=== PATIENT | female | born 1975 ===

== ENCOUNTER → 2020-03-11 11:28 | Outpatient (CLI) | payer OTHER, SELFPAY ==
--- NOTE | ~2020-03-11 | US_ITS ---
EXAMINATION: US transvaginal DATE: 03/11/2020 11:48 INDICATION: Abnormal uterine bleeding Comparison:No prior studies for comparison. TECHNIQUE: Multiple transabdominal and endovaginal sonographic images of the pelvis performed. FINDINGS: The uterus measures 7.3 x 3.1 x 3.8 cm. The endometrial complex measures 4 mm. The ovaries are not visualized. There is no free fluid in the pelvis. There are no abnormal masses seen on either side. IMPRESSION: 1. Unremarkable pelvic ultrasound. Reviewed, dictated and finalized at location A.
== END ==
PROVIDERS: Visit Provider Obstetrics & Gynecology Gynecologic Oncology
DX: N93.9 Abnormal uterine and vaginal bleeding, unspecified (principal)
CPT/HCPCS: 76830

== ENCOUNTER 2022-02-03 12:19 | Emergency (ER) | payer BC, OTHER, SELFPAY ==
[2022-02-03] VITALS (23 sets, daily range): BP systolic 131–161; BP diastolic 87–101; PULSE 74–108; RESP 12–20; TEMP 36.4; O2SAT 97–100
--- NOTE | ~2022-02-03 | CT_ITS ---
EXAMINATION: CTA chest PE protocol DATE: 02/03/2022 14:08 INDICATION: Chest pain. Epigastric abdominal pain. TECHNIQUE: Computed tomography angiography (CTA) of the chest was performed with 100 mL Omnipaque-350 intravenous contrast timed to evaluate the pulmonary arteries. Coronal maximum intensity projection 3D-reconstructions were created by the technologist. Automated exposure control and iterative reconst ruction technique were employed. The dose-length product was 265.42 mGy-cm. COMPARISON: None. FINDINGS: There is a 6 mm nodule in right lung lower lobe. There is a 5 mm nodule in right lung lower lobe. No pleural effusion. The heart size is normal. No pericardial effusion. There is no pulmonary embolus. There is mild thoracic spondylosis. IMPRESSION: 1. No pulmonary embolus. 2. Pulmonary nodules measuring up to 6 mm, probably benign. Consider noncontrast low-dose chest CT in 6-12 months. Reviewed, dictated and finalized at location A. IMPRESSION: 1. No pulmonary embolus. 2. Pulmonary nodules measuring up to 6 mm, probably benign. Consider noncontras t low-dose chest CT in 6-12 months.
--- NOTE | 2022-02-03 12:50 | ECG_ITS ---
Measurements Intervals [place] Rate: 71 P: 66 WA: 169 QRS: 50 QRSD: 81 T: 34 QT: 379 QTc: 414 Interpretive Statements SINUS RHYTHM LEFT ATRIAL ENLARGEMENT [-0.15mV P WAVE IN V1/V2] NO PREVIOUS ECG AVAILABLE FOR COMPARISON Electronically Signed On 02-04-2022 13:31:27 CDT by Kim Serna M.D.
--- NOTE | 2022-02-03 13:26 | ED.RECABL ---
HPI - Recheck/Abnormal Lab/Rx General Chief Complaint: Recheck/Abnormal Lab/Rx Stated Complaint: possible blood clot - elevated d-dimer Time Seen by Provider: 02/03/22 12:27 History of Present Illness HPI narrative: 47-year-old female with history of Crohn's and hypertension presented emergency room for evaluation of elevated D-dimer. Patient states that she was seen in her primary care physician's office this morning for bilateral calf bumps . States the bump on her right calf was a result of her hitting the car door, and the bump on her left calf as result of a shopping cart hitting her in the back of the leg. Patient denies a known history of blood clots, cancer. Patient is not on anticoagulants. Patient denies use of control. Denies recent travel or extended periods of immobilization. Denies any recent injury or illness. Related Data Allergies Allergy/AdvReac Type Severity Reaction Status Date / Time dextromethorphan Allergy Mild Hives Verified 02/03/22 12:20 doxylamine Allergy Mild Hives Verified 02/03/22 12:20 pseudoephedrine Allergy Mild Hives Verified 02/03/22 12:20 acetaminophen Allergy Unknown Hives / Verified 02/03/22 12:20 Red Face doxycycline Allergy Unknown Nausea Verified 02/03/22 12:20 Review of Systems Review of Systems: CONSTITUTIONAL: Denies fever, chills, or sweats. EYES: Denies visual changes, redness, or discharge. ENT: Denies rhinorrhea, congestion, sore throat, or otalgia. CARDIOVASCULAR: Denies chest pain, palpitations, or edema. RESPIRATORY: Denies cough or dyspnea. GASTROINTESTINAL: Denies abdominal pain, nausea, vomiting, or diarrhea. GENITOURINARY: Denies dysuria or hematuria. SKIN: Denies rash or itching. MUSCULOSKELETAL: Reports bilateral calf pain NEUROLOGIC: Denies headache, numbness, dizziness, or weakness. PSYCHIATRIC: Denies anxiety or depression. Exam Narrative: GENERAL: Well-appearing, well-nourished, no physical limitations, and in no acute distress. HEAD: Normocephalic, atraumatic. EYES: Conjunctivae normal, PERRLA and EOMI. NECK: Supple. No meningeal signs. No adenopathy or masses. No carotid bruits or JVD CHEST: Clear to auscultation. No respiratory distress. No wheezes rales or rhonchi. No tenderness. HEART: Regular rate and rhythm. No murmur heard. Normal peripheral pulses. EXTREMITIES: Normal range of motion. No edema. No clubbing or cyanosis. Negative Homans' sign bilaterally SKIN: Warm, dry, no rash. No noted wounds NEURO: No focal deficits. Alert and oriented x3. MAEW. CN's II-XI intact bilaterally, normal gait PSYCH: Cooperative. Normal mood and affect. Course Vital Signs Vital signs: Vital Signs Temperature 36.4 C 02/03/22 12:23 Pulse Rate 108 H 02/03/22 12:23 Respiratory Rate 16 02/03/22 12:23 Blood Pressure 153/97 H 02/03/22 12:23 Pulse Oximetry 100 02/03/22 12:23 Oxygen Delivery Room Air 02/03/22 12:23 Temperature 36.4 C 02/03/22 12:23 Pulse Rate 83 02/03/22 16:30 Respiratory Rate 17 02/03/22 16:30 Blood Pressure 135/91 H 02/03/22 13:16 Pulse Oximetry 97 02/03/22 12:36 Oxygen Delivery Room Air 02/03/22 12:23 MDM - Recheck/Abnormal Lab/Rx Lab Data Result diagrams: 02/03/22 13:26 02/03/22 13:26 Labs: Lab Results 02/03/22 02/03/22 02/03/22 Range/Units 13:26 13:26 13:26 WBC 7.7 (4.5-10.0) K/mm3 RBC 4.42 (4.2-5.4) M/mm3 Hgb 13.7 (12.0-15.0) g/dL Hct 39.6 (37.0-47.0) % MCV 89.6 (80-100) fl MCH 31.0 (26-34) pg MCHC 34.6 (32-36) g/dl RDW 12.8 (11.5-14.5) % Plt Count 261 (150-375) k/mm3 MPV 10.5 H (7.4-10.4) fl Immature Gran % (Auto) 0.4 (0-0.5) % Neut % (Auto) 71.6 (45.5-73.1) % Lymph % (Auto) 16.9 L (18.3-44.2) % [place] % (Auto) 9.3 H (2.6-8.5) % Eos % (Auto) 1.4 (0-4.4) % Baso % (Auto) 0.4 (0.2-1.2) % Lymph # (Auto) 1.31 (0.9-3.2) K/mm3 [place] # (Auto) 0.7 H (0.1-0.6) K/mm3 Eos # (
[2022-02-03] MEDS: SODIUM CHLORIDE 0.9% IV 1,000 ML 999 ML IV CONT (13:34)
[2022-02-03 13:35] LABS: Basophils Percent Auto 0.4 % (0.2-1.2); Eosinophils Absolute Auto 0.1 K/mm3 (0-0.3); Eosinophils Percent Auto 1.4 % (0-4.4); Hematocrit 39.6 % (37.0-47.0); Hemoglobin 13.7 g/dL (12.0-15.0); Immature Granulocyte Absolute 0.03 K/mm3 (0.00-0.031); Immature Granulocyte Percent A 0.4 % (0-0.5); Lymphocytes Absolute Auto 1.31 K/mm3 (0.9-3.2); Lymphocytes Percent Auto 16.9 % (18.3-44.2); Mean Corpuscular HGB Conc 34.6 g/dl (32-36); Mean Corpuscular Volume 89.6 fl (80-100); Mean Platelet Volume 10.5 fl (7.4-10.4); Monocytes Absolute Auto 0.7 K/mm3 (0.1-0.6); Monocytes Percent Auto 9.3 % (2.6-8.5); Neutrophils Absolute Auto 5.5 K/mm3 (1.3-6.7); Neutrophils Percent Auto 71.6 % (45.5-73.1); Platelet Count Result 261 k/mm3 (150-375); Red Blood Count 4.42 M/mm3 (4.2-5.4); Red Cell Distribution Width 12.8 % (11.5-14.5); White Blood Count 7.7 K/mm3 (4.5-10.0)
[2022-02-03 13:50] LABS: Alanine Aminotransferase 32 U/L (6-35); Albumin Level 4.3 g/dL (3.5-5.1); Alkaline Phosphatase 196 U/L (38-126); Anion Gap 7 mmol/L (8-16); Aspartate Amino Transferase 36 U/L (14-36); Bilirubin,Total 0.2 mg/dL (0.2-1.3); Blood Urea Nitrogen 11 mg/dL (7-17); Calcium 9.3 mg/dL (8.4-10.2); Carbon Dioxide 30 mmol/L (22-30); Chloride 92 mmol/L (98-107); Estimated CRCL calculation 82 ml/min; Estimated Glomerular Filt Rate > 60; Glucose 100 mg/dL (65-110); Potassium 3.6 mmol/L (3.4-5.0); Sodium 129 mmol/L (137-145)
[2022-02-03 14:09] LABS: D Dimer 1.57 ug/mL (<0.48)
== END 2022-02-03 16:56 | disposition home or self-care (01) ==
PROVIDERS: Emergency Provider Nurse Practitioner Family
DX: R79.1 Abnormal coagulation profile (principal); M79.605 Pain in left leg; M79.604 Pain in right leg; G47.00 Insomnia, unspecified; Z86.718 Personal history of other venous thrombosis and embolism
CPT/HCPCS: 36415; 71275; 80053; 81025; 84443; 85025; 85380; 93005; 96360; 99284; J7030; Q9967

== ENCOUNTER 2024-07-28 14:35 | Emergency (ER) | payer BC, OTHER, SELFPAY ==
--- NOTE | ~2024-07-28 | XR_ITS ---
CHEST RADIOGRAPH, PA AND LATERAL CLINICAL HISTORY: cp, sob . COMPARISON: None available TECHNIQUE: PA and lateral views of the chest. FINDINGS The cardiomediastinal silhouette is unremarkable. The lungs are clear. Visualized osseous structures and soft tissues are unremarkable. IMPRESSION: No focal infiltrate or effusion. Reviewed, dictated and finalized at location A. RATOR ASSEMBLER
--- NOTE | ~2024-07-28 | CT_ITS ---
EXAMINATION: CTA chest PE abdomen pel DATE: 07/28/2024 20:00 MEDICAID BILLING SPECIALIST INDICATION: Cough and short of breath. Personal history of Crohn's disease, on immunotherapy TECHNIQUE: Computed tomographic angiography (CTA) of the chest was performed, along with multiple con tiguous axial images of the abdomen and pelvis with 100 mL Omnipaque-350 intravenous contrast. The do se-length product was 932.66 mGy-cm. Maximum intensity projection 3D-reconstructions of the aorta and other arteries were constructed by the technologist on a separate workstation. FINDINGS/OBSERVATIONS: PULMONARY ARTERIES: No filling defect is identified within the main or proximal pulmonary artery. The main pulmonary artery is not enlarged. THORACIC AORTA: No aneurysmal dilatation or dissection is present. The great vessels are intact LUNGS: The lungs are clear. MEDIASTINUM: No morphologically suspicious or pathologically enlarged lymph nodes are identified with in the mediastinum or bilateral axilla. BONES OF THE CHEST: No acute fracture. No significant degenerative disease. No lytic or blastic lesions. HEART: The heart is of normal size, without pericardial effusion. LIVER: The liver enhances homogeneously without enlargement measuring 16 cm in longitudinal dimension. GALLBLADDER AND BILIARY SYSTEM: The gallbladder is only minimally distended, and otherwise unremarkable. PANCREAS: The pancreas enhances homogeneously without ductal dilatation. SPLEEN: The spleen enhances homogeneously and is not enlarged measuring 10 cm in longitudinal dimension. KIDNEYS: The bilateral kidneys enhance symmetrically without hydronephrosis or renal calculi. ADRENAL GLANDS: Unremarkable. GASTROINTESTINAL TRACT: Trace fecal stasis APPENDIX: The appendix is not definitively visualized. However, no pericecal inflammatory change is identified suggest the presence of acute appendicitis. VASCULATURE: Unremarkable. LYMPH NODES: No pathologically enlarged or morphologically suspicious lymph nodes within the retroperitoneum or at the root of the mesentery. PELVIC STRUCTURES: The bladder is only minimally distended, and otherwise unremarkable. The uterus is anteverted and anteflexed BODY WALL AND MUSCULOSKELETAL: Small fat-containing supraumbilical hernia. No significant degenerative disease within the lower thoracic or lumbosacral spine. IMPRESSION: No pulmonary embolus. No aortic dissection. The lungs are clear. No acute pathology detected within the abdomen or pelvis. Reviewed, dictated and finalized at location A. CAID BILLING SPECIALIST
[2024-07-28 14:43] VITALS: BP 161/99; PULSE 108; RESP 19; TEMP 36.2; O2SAT 97
--- OUTSIDE RECORDS SUMMARY | 2024-07-28 14:50 | XMS_ITS | Encounter Summary ---
Author Organization [facility] Address [address] [place] [address] Care Team Providers Care Metal Weather Stripper Name Role Phone Gómez Raymundo MD Primary Care Provider [phone]- [phone] Encounter Details Date Type Department Care Team (Late st Contact Info) Description 06/23/1999 Outpatient Historical Division of Neurology [address] [address] Caden Suarez MD [address] [facility] [address] [place] [address] Social History Tobacco Use Types Packs/Day Years Used Date Smoking Tobacco: Never Assessed Comments Unknown Sex and Gender Information Value Date Recorded Sex Assigned at Not on file 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
--- OUTSIDE RECORDS SUMMARY | 2024-07-28 14:50 | XMS_ITS | Encounter Summary ---
Author Organization [facility] Address [address] [place] [address] Care Team Providers Care Compensation/Benefits Specialist Name Role Phone Gómez Raymundo MD Primary Care Provider [phone]- [phone] Encounter Details Date Type Department Care Team (Late st Contact Info) Description 06/08/2000 Outpatient Historical Division of Neurology [address] [address] Caden Suarez MD [address] 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
--- OUTSIDE RECORDS SUMMARY | 2024-07-28 14:50 | XMS_ITS | Clinical Summary ---
Author Organization [facility] Address [address] [place] [phone] Care Team Providers Care Game Bird Farmer Name Role Phone Terese Garcia MD Primary Care Provider Kt Carmona MD Unavailable [phone] Saenz MD Unavailable [phone] Allergies Active Allergy Reactions Criticality Noted Date Comments Chlorhexidine Gluconate Itching,Redness Low 024 Nyquil Urticaria Medium 01/02/2017 Patient states reaction occurred at at 16. Patient able to take other cough/cold mediations including Dayquil. Medications folic acid (FOLVITE) 400 mcg tabletIndications :Folate Deficiency take 1 tablet by oral route every day 0 0 015 Active calcium carbonate-vitamin D3 (CALTRATE 600 + D) 600 mg (1,500 mg)-800 unit tablet,chewableIn dications:Vitamin D Deficiency take as directed 0 0 015 Active cyanocobalamin (Vitamin B-12) 1,000 mcg tabletIndications :Prevention of Vitamin B12 Deficiency Take 1 tablet (1,000 mcg total) by mouth daily Active inFLIXimab-dyyb (Inflectra) 100 mg injectionIndicati ons:Crohn's Disease Infuse 40 mL (400 mg total) into a venous catheter every 8 (eight) weeks 5 mg/kg dose. Site of Care: [facility] Home Care ([facility] order in Epic under 'Procedures' tab). Active acetaminophen (TYLENOL) 325 mg tabletIndications :infusion reaction prophylaxis Take 2 tablets (650 mg total) by mouth biotech production specialist Please provide 650mg of acetaminophen by mouth 30 minutes prior to Inflectra infusion. Active diphenhydrAMINE 25 mg capsuleIndication s:PREMED Take 1 tablet/capsule (25 mg total) by mouth biotech production specialist Please provide 25mg of diphenhydramine by mouth 30 minutes prior to Inflectra infusion. Active carBAMazepine ER (CARBATROL) 300 mg 12 hr capsule Take 1 capsule (300 mg total) by mouth 2 (two) times a day Active hydroCHLOROthiazi de (HYDRODIURIL) 25 mg tablet Take 1 tablet by mouth once daily 90 tablet Active ondansetron ODT (ZOFRAN-ODT) 8 mg disintegrating tablet Take 1 tablet (8 mg total) by mouth every 8 (eight) hours as needed for nausea or vomiting 20 tablet 3 Active Additional Information Patient not taking.Reported on 07/26/2024 albuterol HFA (ProAir HFA) 90 mcg/actuation inhaler Inhale 2 puffs every 4 (four) hours as needed for shortness of breath or wheezing 1 each 4 2025 Active benzonatate (TESSALON) 100 mg capsuleIndication s:Cough Take 1 capsule (100 mg total) by mouth 3 (three) times a day as needed for cough 42 capsule Active predniSONE (DELTASONE) 20 mg tablet Take 2 tablets (40 mg) by mouth daily for 5 days Take with food 10 tablet 2024 Active amoxicillin-clavu lanate (Augmentin) 875-125 mg per tablet Take 1 tablet by mouth 2 (two) times a day for 7 days 14 tablet 025 2024 Active azithromycin (ZITHROMAX) 250 mg tablet Take 2 tabs (500 mg) by mouth today, than 1 tab (250 mg) daily for 4 days. 6 tablet 025 2024 Active inhalational spacing device (Aerochamber MV) spacer Pt to use with albuterol inhaler 1 each 025 Active sodium chloride 0.9% injectionIndicati ons:line care piv Infuse 10 mL into a venous catheter as needed for line care (piv) 2024 Discontin ued(Thera py completed ) sulfaSALAzine (AZULFIDINE) 500 mg tablet every 12 hours 022 2024 Discontin ued(Thera py completed ) oseltamivir (TAMIFLU) 75 mg capsule Take 1 capsule (75 mg total) by mouth 2 (two) times a day for 5 days 10 capsule 025 2024 Active Problems Problem Noted Date Diagnosed Date High risk medications (not anticoagulants) long- term use 08/01/2023 Assessment & Plan (05/28/2024 10:19 AM HARBOR TUG CAPTAIN): All immunosuppressants increase the risk of infection so we recommend the patient get all available vaccinations, including the pneumococcal vaccine, covid19 and annual influenza vaccine. We screen for TB and HBV prior to initiating an anti-TNF. We monitor CBC and HFP q 3 months for cytopenias and hepatotoxicity. Patients are monitored for infusion reactions at an infusion center. Anti-TNFs may increase the risk for malignancy. The patient should get all age-appropriate cancer screening and in addition should follow with a government relations manager for skin cancer screening. There is a small risk of heart failure so any new HF symptoms would prompt an evaluation and likely discontinuation of therapy. Assessment & Plan (11/28/2023 10:05 AM CDT): All immunosuppressants increase the risk of infection so we recommend the patient get all available vaccinations, including the pneumococcal vaccine, covid19 and annual influenza vaccine. We screen for TB and HBV prior to initiating an anti-TNF. We monitor CBC and HFP q 3 months for cytopenias and hepatotoxicity. Patients are monitored for infusion reactions at an infusion center. Anti-TNFs may increase the risk for malignancy. The patient should get all age-appropriate cancer screening and in addition should follow with a government relations manager for skin cancer screening. There is a small risk of heart failure so any new HF symptoms would prompt an evaluation and likely discontinuation of therapy. Assessment & Plan (08/01/2023 2:49 PM HARBOR TUG CAPTAIN): All immunosuppressants increase the risk of infection so we recommend the patient get all available vaccinations, including the pneumococcal vaccine, covid19 and annual influenza vaccine. We screen for TB and HBV prior to initiating an anti-TNF. We monitor CBC and HFP q 3 months for cytopenias and hepatotoxicity. Patients are monitored for infusion reactions at an infusion center. Anti-TNFs may increase the risk for malignancy. The patient should get all age-appropriate cancer screening and in addition should follow with a government relations manager for skin cancer screening. There is a small risk of heart failure so any new HF symptoms would prompt an evaluation and likely discontinuation of therapy. Healthcare maintenance 08/01/2023 Overview (08/01/2023): Immunizations: Influenza annual Pneumococcus recommend PCV 20 Zoster recommend HBV immune Covid vaccinated Cervical cancer screening: routine follow up with hot stick man Skin cancer screening: consider referral to dermatology to discuss screening strategy Bone health: DEXA: osteopenia in 2020. Ocnt Ca and vit D CRC screening: annual d/t PSC Assessment & Plan (11/28/2023 10:18 AM CDT): PCV today Follows with bone health for osteopenia Assessment & Plan (08/01/2023 2:54 PM HARBOR TUG CAPTAIN): Annual c scope d/t psc Crohn's disease of colon wit h intestinal obstruction ([facility]/HCC) 07/16/2023 Assessment & Plan (07/18/2023 1:02 PM HARBOR TUG CAPTAIN): D/w CRS today - will transfer to CRS service with plan for surgical treatment on Sunday - holding steroids per GI Klebsiella pneumoniae sepsis ([facility]) Assessment & Plan (07/18/2023 1:02 PM HARBOR TUG CAPTAIN): Likely related to gut translocation in the setting of severe crohns inflammation and steroids - day 2 of abx; would treat for 7 days total based upon susceptibility data Fever 07/10/2023 Assessment & Plan (07/11/2023 11:18 AM HARBOR TUG CAPTAIN): -Febrile to 102F this admit -Infectious workup: UA negative for infection. CXR negative for infection, RVP negative -Blood culture x 1/2 MRSE (methicillin resistant staph Epi)-started on empiric Vanc for two doses. Discussed with Antibiotic Stewardship (ID) today, likely contaminant as all other cultures NGTD. Vanc stopped. -Fever most consistent w/ Crohn's flare PSC (primary sclerosing cholangitis) 07/09/2023 Assessment & Plan (05/28/2024 10:20 AM HARBOR TUG CAPTAIN): Needs annual c scope Assessment & Plan (05/19/2024 3:02 PM HARBOR TUG CAPTAIN): Ms. Martinez presents for follow up for primary sclerosing cholangitis. #PSC [No] Clinically sig portal htn (Baveno criteria) Fibroscan LS >20kPa , Plt <150K. I will obtain updated Fibroscan today to evaluate degree of hepatic steatosis and fibrosis. - MRI/MRCP scheduled 06/02/2024 for surveillance. - CCA screening: Paucity of data proving efficacy of screening, especially in asymptomatic patients without dominant stricture Colorectal ca screening: If IBD present, then q1y colonoscopy, last colonoscopy 01/18/2024 Gallbladder ca screening: Monitoring for gb polyps >8 mm. Bone health: DEXA sreening q2-3y. Last DEXA scan done: 09/2023 osteopenia - Vitamin D repletion maintenance 800-1000 international units daily. If osteopenia: Vit D 2000 international units daily and Calcium 1-1.5 g/d. Last Vitamin D level 38 (06/08/2023). - Calcium supplementation Plan: - CA-19, Fat soluble vitamins: monitor vitamins A, D, E yearly. - Fibroscan today - Follow up in 1 year. Assessment & Plan (11/28/2023 10:16 AM CDT): Follows with hepatology. Needs c scope annually due to colon ca risk. Assessment & Plan (08/01/2023 2:50 PM HARBOR TUG CAPTAIN): Follows with liver. Needs annual c scope for dysplasia screening, though has not had colonic involvement. Assessment & Plan (07/10/2023 4:06 PM HARBOR TUG CAPTAIN): Patient has been getting worked up for elevated liver enzymes outpatient. 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 -continue to follow up outpatient with GI with recommendations for annual colonoscopy -follow-up with CRS and GI Hypertension 07/09/2023 Assessment & Plan (07/10/2023 4:07 PM HARBOR TUG CAPTAIN): On hydrochlorothiazide 25 mg daily Holding antihypertensive meds-BP stable without HCTZ for now Crohn's colitis, unspecified complication 2023 Assessment & Plan (07/11/2023 11:17 AM HARBOR TUG CAPTAIN): Patient was diagnosed with Crohn's in 2003. Patient is currently receiving infliximab and sulfasalazine for symptoms. 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 Patient also has extraintestinal manifestation including painful nodules. Patient presented with the abdominal with severe abdominal pain. Mentioned that her previous Crohn's flare ups are also similar. CT abdomen showed active inflammation involving long segment proximally 12 cm of terminal ileum with worsening stricture involving the distal ileum just proximal to this segment with moderate to severe upstream dilation Pt's pain improving. Feels ok, would prefer to go home. Awaiting further GI recs regarding steroids. No signs of obstruction. No N/V. Passing flatus -s/p Solu-Medrol 60 mg IV x 2, now 30mg BID per GI recs -IV fluids -Cont Dilaudid 0.5 mg q.2 hours as needed for pain, APAP prn -Clear liquids this AM -Trend CRP (31->94->81.5) -Per CRS, plan outpatient follow up. Making appt for her. No OR indicated this admit -Follow up GI recs Sinusitis, acute 09/28/2022 Assessment & Plan (09/28/2022 4:43 PM CDT): Due to length of illness we will treat with antibiotic, please complete the whole course of antibiotics-no leftovers. Prescription for antibiotics sent. Reviewed potential benefits and potential side effects of amoxicillin. Aware to complete full course of antibiotic. To continue otc medications. Discussed nasal saline rinses/neti pots. Discussed need to increase fluid intake. May use 1 teaspoon honey every 4 hours as needed for cough, encourage use of hot tea or hot water with honey. May use vicks vapo rub on chest and bottom of feet before bed. Cool mist humidifier in bedroom. Lots of water, rest and handwashing, no sharing cups or utensils. If symptoms worsen including but not limited to shortness of breath, chest pain and/or increasing pain please notify office or present to Emergency Department. Other acne 10/12/2020 Endometriosis 07/22/2018 Elevated serum alkaline phosphatase level 2014 Overview (09/21/2016): Alkaline phosphatase elevated Assessment & Plan (05/21/2023 12:58 PM HARBOR TUG CAPTAIN): Mrs. Martinez presents for evaluation of elevated alkaline phosphatase. She has history of Crohn's (Remicade q8 weeks, Sulfasalazine). She has history of fluctuating alkaline phophatase since 2021, most recent Alk Phos 152, with normal AST/ALT, Tbili. Plt 258K, GGT normal in 2021. MRE 09/2022 reveals normal liver and bile ducts. I will rule out other etiologies of elevated liver tests with lab work today including autoimmune, genetic, viral, and iron overload as well as updated CBC, CMP, Alk Phos Iso enzymes. Differential diagnosis for elevated alk phos is metabolic associated steatotic liver dysfunction (normal GGT), Bone disease vs. bile duct disease. Given the history of Crohns there is concern for disease of the bile ducts, therefore I will order MRI/MRCP for further evaluation of biliary ducts. FIB-4 score 0.92, low risk for fibrosis. Fibroscan to evaluate for hepatic steatosis and if any fibrosis. Further recommendations and management based on workup. Crohn's disease (CMS/HCC) 09/28/2014 Overview (05/28/2024): Year of diagnosis: 2003. Year symptoms began: 2003. Phenotype: Stricturing (B2) without perianal disease. Distribution: ileal (L1) without upper GI disease (L4). Extraintestinal manifestations: PSC, ? Erythema nodosum. Complications: multiple SBO. Prior surgeries: . 07/20/2023 lap ICR with primary anastomosis ([place]) Prior treatments: pentasa, 6MP, steroids. Current treatment: infliximab 5 q 8, SSZ PRN. TPMT: ? 2003 presented with abdominal pain, diarrhea, hematochezia, urgency (20 to 50 bowel movements a day). 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 Infliximab trough was 8.4 on 5 q 8 Referred to surgery several times but she declined. 06/2022 admitted with SBO. Managed with IV steroids then dcd per pt request. Readmitted 3 days later with another obstruction and underwent surgery 07/20/2023 lap ICR with primary anastomosis ([place]) Path Large and small bowel, ileum and cecum, ileocolic resection - Ileum with marked Crohn's disease - Active chronic ileitis, ulceration, transmural inflammation and fibrosis - Negative for dysplasia - CMV immunostain is negative for viral inclusions - Colon with no histopathologic abnormality - Ileal resection margin with mildly active chronic ileitis - GMS and AFB stains will follow in an addendum 01/18/2024 colonoscopy mucosal remission Assessment & Plan (05/28/2024 9:13 PM HARBOR TUG CAPTAIN): Colonoscopy showed mucosal remission on infliximab. Continue indefinitely. Repeat c scope annually due to risk of colon cancer with PSC. RTC 6 mos. Needs infliximab reauthorization before next infusion. Assessment & Plan (11/28/2023 10:17 AM CDT): Stricturing ileal crohn's now in surgical remission. Continue infliximab indefinitely. Schedule c scope to look for recurrence and for screening. RTC 6 mos. Assessment & Plan (08/01/2023 2:49 PM HARBOR TUG CAPTAIN): Severe stricturing ileal Crohn's with multiple admissions for obstruction now in surgical remission. She already had a tight stricture causing obstruction before starting infliximab, so I don't think this was fibrotic and infliximab was never going to prevent surgery. I think infliximab will keep her crohn's from comign back. -cont infliximab -Repeat c scope in 6-12 mos postop. Needs annual scope d/t PSC Assessment & Plan (05/21/2023 1:40 PM HARBOR TUG CAPTAIN): Patient follows with Dr. Merchant (dx 2003). Her current regimen includes Infliximab infusion every 8 weeks, Sulfasalazine 1000 mg daily. Last colonoscopy was in 2020 which revealed tight TI stricture, not able to be traversed. She is scheduled to see [employer] provider this month with transition of care to Dr. Messina. 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 Assessment & Plan (07/10/2023 4:06 PM HARBOR TUG CAPTAIN): Was diagnosed 22 years ago and started with seizures Is following up with Neurosurgery at [facility] Continue carbamazepine (liquid substituted for pills), pt tolerating well. Encounters Date Type Department Care Team Description 07/28/2024 1:35 PM HARBOR TUG CAPTAIN - 07/28/2024 2:40 PM HARBOR TUG CAPTAIN Emergency [facility] Emergency Department [address] [place] [address] Discharge Disposition: Left without being seen 07/28/2024 Nurse Triage [facility] Primary Care [address] [place] [address] Terese Garcia MD 07/26/2024 11:00 AM HARBOR TUG CAPTAIN Office Visit [facility] Medical [facility] at [address] [phone] Lj Brcue NP Acute lower respiratory infection (Primary Dx); Acute cough 07/18/2024 1:30 PM HARBOR TUG CAPTAIN Office Visit [facility] Primary Care [address] [place] [phone] Lillie Mata NP Acute cough (Primary Dx); Influenza A; Class 1 obesity due to excess calories with serious comorbidity and body mass index (BMI) of 31.0 to 31.9 in adult; Primary hypertension; Crohn's disease of small intestine without complication (CMS/HCC) (HCC); Nausea 07/15/2024 9:00 AM HARBOR TUG CAPTAIN Home Care Visit [address] [address] [address] [place] [address] Rubi Chaudhry RN SN INFUSION TREATMENT ROOM 06/17/2024 11:50 AM HARBOR TUG CAPTAIN - 06/17/2024 11:59 PM HARBOR TUG CAPTAIN Hospital Encounter [facility] [address] [place] [address] Lung nodule Discharge Disposition: Discharge to home or self care 06/03/[address] [facility] Gastroenterology [address] [place] [address] 12th [place] [address] [place] [address] Lillie Padilla LPN 06/02/2024 1:15 PM HARBOR TUG CAPTAIN - 06/02/2024 11:59 PM HARBOR TUG CAPTAIN Hospital Encounter [facility] [address] [place] [address] Elevated serum alkaline phosphatase level; PSC (primary sclerosing cholangitis) Discharge Disposition: Discharge to home or self care 06/02/2024 Orders Only [facility] [address] [place] [address] Anita Kelley NP PSC (primary sclerosing cholangitis) (Primary Dx) 05/28/2024 10:00 AM HARBOR TUG CAPTAIN Office Visit [facility] Gastroenterology [address] [place] [address] Medical Office Building [address] [place] [phone] West Saenz MD High risk medications (not anticoagulants) long-term use (Primary Dx); PSC (primary sclerosing cholangitis); Crohn's disease of colon with intestinal obstruction (CMS/HCC) (HCC); Crohn's disease of small intestine with intestinal obstruction (CMS/HCC) (HCC) 05/22/[address] [facility] Gastroenterology [facility]th [place] [address] [place] [address] Lillie Padilla LPN 05/22/2024 Orders Only [address] [address] Anita Kelley NP PSC (primary sclerosing cholangitis) (Primary Dx) 05/19/2024 3:15 PM HARBOR TUG CAPTAIN Lab [address] [id number] PSC (primary sclerosing cholangitis) 05/19/2024 3:00 PM HARBOR TUG CAPTAIN Procedure visit [facility] Gastroenterology [address] [place] [address] Medical Office Building [address], [address] [place] [address] PSC (primary sclerosing cholangitis) 05/19/2024 2:40 PM HARBOR TUG CAPTAIN Office Visit [facility] Gastroenterology [address] [place] [address] Medical Office Building [address], [address] [place] [phone] Anita Kelley NP PSC (primary sclerosing cholangitis) (Primary Dx) 05/16/2024 9:15 AM HARBOR TUG CAPTAIN - 05/16/2024 11:59 PM HARBOR TUG CAPTAIN Hospital Encounter [facility] [address] [place] [address] Discharge Disposition: Discharge to home or self care 05/16/2024 9:00 AM HARBOR TUG CAPTAIN Home Care Visit [facility] [address] [address] [address] [place] [address] Nowacki, Jett J., RN SN INFUSION TREATMENT ROOM 05/14/2024 2:30 PM HARBOR TUG CAPTAIN Office Visit [facility] Convenient Care at [address] [phone] Lj Bruce NP Common cold (Primary Dx) 04/30/[address] [facility] Gastroenterology [address] [place] [address] [place] [address] Camilla Ghotra CMA from Last 3 Months Immunizations Name Administration Dates Next Due Influenza, Quadrivalent, Spl it, Intramuscular 03/18/2015 Influenza, Quadrivalent, Spl it, Preservative Free, Intramuscular 05/01/2022,04/15/2019 Influenza, Trivalent, IM (MDV) 03/18/2018,2007 Influenza, Unspecified 03/06/2024,2022,03/29/2021,03/22 Pfizer SARS-CoV-2 Monovalent Vaccination (12+ Yrs) PURPLE 06/25/2021,10/07/2020,09/16/2020 Pfizer SARS-CoV-2 Monovalent Vaccination (5-11 Yrs) 06/25/2021,10/07/2020,09/16/2020 Pneumococcal Conjugate Pcv20 11/28/2023 Tdap 09/07/2022,07/19/2015 Surgical History Surgery Date Site/Laterality Comments OTHER SURGICAL HISTORY Brain Tumor - lt parietal: no growth or recurrent APPENDECTOMY 1993 Appendectomy OTHER SURGICAL HISTORY D&C ROBOTIC ASSISTED GYNECOLOGIC PROCEDURE WISDOM TOOTH EXTRACTION x 2 COLONOSCOPY BOWEL RESECTION 06/18/2023 - 07/18/2023 Right Medical History Medical History Date Comments 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 Hx Other Medical Crohns disease Hx Other Medical 1998 Brain Tumor - l t parietal Hx Other Medical Seizure disorde r 2nd to brain tumor Hx Other Medical - Neurologis t Hx Other Medical 03 - GI Hypertension Crohn's disease (CMS/HCC) (HCC) PSC (primary sclerosing cholangitis) Seizures (HCC) Family History Medical History Relation Name Comments Alcohol abuse Father Alcoholism; Ca use of : Alcoholism Heart attack Maternal Grandfather Myocard ial infarction; Hyperlipidemia Mother Hyperlipidemi a; Rheum arthritis Mother Rheumatoid a rthritis; Diabetes Mother's Brother Diabetes me llitus; Breast cancer Mother's Sister Other Sister 2 Murdered; Cause of : Murdered Schizophrenia Sister 3 Schizophrenia; Anesthesia problems Neg Hx Colon cancer Neg Hx Relation Name Status Comments Father (Age 60) Maternal Grandfather Mother Mother's Brother Mother's Sister Sister 1 (Age 32) Sister 2 Sister 3 Social History Tobacco Use Types Packs/Day Years Used Date Smoking Tobacco: Never Passive Smoke Exposure: Never Smokeless Tobacco: Never Tobacco Cessation:Counseling Given: Not Answered Alcohol Use Standard Drinks/Week Comments Yes 0 (1 standard drink = 0.6 oz pur e alcohol) OASIS [id number]: Social Isolation Answer Da te Recorded Frequency of experiencing loneliness or isolatio n Never 01/31/2024 [facility] Utilities Answer Date Recorded In the past 12 months has th e electric, gas, oil, or water company threatened to shut off services in your home? No 07/17/2023 AUDIT-C Answer Date Recorded Q1: How often do you have a drink containing alcohol? Never 05/19/2024 Q2: How many drinks containi ng alcohol do you have on a typical day when you are drinking? Patient does not drink Q3: How often do you have si x or more drinks on one occasion? Never 05/19/2024 Overall Financial Resource Strain (CARDIA) Answe r Date Recorded How hard is it for you to pa y for the very basics like food, housing, medical care, and heating? Not very hard 07/17/2023 PHQ-2 Answer Date Recorded PHQ-2 Total Score (If total score is 3 or more points, staff should administer the PHQ-9) 0 07/18/2024 Hunger Vital Sign Answer Date Recorded Within the past 12 months, y ou worried that your food would run out before you got the money to buy more. Never true 07/17/19 24 Within the past 12 months, t he food you bought just didn't last and you didn't have money to get more. Never true 07/17/2023 PRAPARE - Transportation Answer Date Re corded In the past 12 months, has l ack of transportation kept you from medical appointments or from getting medications? No 06/20 In the past 12 months, has l ack of transportation kept you from meetings, work, or from getting things needed for daily living? No 07/17/2023 Housing Stability Vital Sign Answer Adolfo e Recorded In the last 12 months, was t here a time when you were not able to pay the mortgage or rent on time? No 07/17/2023 In the last 12 months, how many places have you lived? 1 07/17/2023 In the last 12 months, was t here a time when you did not have a steady place to sleep or slept in a alf (including now)? No 07/17/2023 Personal Safety Answer Date Recorded Have you ever been in or are you currently in a harmful physical or emotional relationship or is someone making you feel afraid or unsafe? Denies 01/18/2024 Comments No Sex and Gender Information Value Date Recorded Sex Assigned at Not on file Legal Sex Female 4:53 PM HARBOR TUG CAPTAIN Gender Identity Female 12/08/2020 2:25 PM CDT Sexual Orientation Straight 12/08/2020 2: 25 PM CDT Obstetrics History Para Term AB IAB SAB Ectopic Multiple Livin g Live Births 21 Date Outcome GA Total Labor Labor/2nd/3rd Weight Sex Type Anes PTL Lacey A1 A5 Name Clin Last Filed Vital Signs Vital Sign Reading Time Taken Comments Blood Pressure 150/88 07/26/2024 11:03 AM HARBOR TUG CAPTAIN Pulse 104 07/26/2024 11:15 AM HARBOR TUG CAPTAIN Temperature 36.6 C (97.8 F) 07/26/2024 11:03 AM HARBOR TUG CAPTAIN Respiratory Rate 20 07/26/2024 11:03 AM HARBOR TUG CAPTAIN Oxygen Saturation 95% 07/26/2024 11:15 AM HARBOR TUG CAPTAIN Inhaled Oxygen Concentration - - Weight 84.8 kg (187 lb) 07/26/2024 11:03 AM HARBOR TUG CAPTAIN Height 165.1 cm (5' 5 ) 07/18/2024 1:23 PM HARBOR TUG CAPTAIN Body Mass Index 31.12 07/18/2024 1:23 PM HARBOR TUG CAPTAIN Plan of Treatment Health Maintenance Due Date Last Done Comments Zoster Vaccine (1 of 2) 02/02/1996 Covid-19 Vaccine (3 - Pfizer risk series) 07/23/2021 06/25/2021, 06/25/2021, 10/07/2020, Additional history exists Breast Cancer Screening-Mammogram 01/08/2025 01/09/2024, 01/01/2023, 12/26/2021, Additional history exists Regular Well Visit/Exam 18-64 02/20/2025, 11/20/2022, 10/20/2021, Additional history exists Depression Screening 07/18/2025 07/18/2024, 02/21/2024, 08/02/2023, Additional history exists Colon Cancer Screening-Colonoscopy 01/17/20272023, 12/02/2020 Cervical Cancer Screening 12/07/2027 12/06/2022, 12/2017 DTaP/Tdap/Td Vaccine (3 - Td or Tdap) 09/07/2032 09/07/2022, 07/19/2015 Hepatitis C Screening Completed 05/21/2023 Hepatitis B Screening Completed 10/05/2023 Pneumococcal vaccine <65 Completed 11/28/2023 Influenza Vaccine Completed 03/06/2024, , 05/01/2022, Additional history exists Procedures Procedure Name Priority Date/Time Associated Diagnosis Comments POC INFLUENZA A/B, COVID-19 ANTIGEN Routine 07/18/2024 1:29 PM HARBOR TUG CAPTAIN Acute cough CT CHEST WO CONTRAST Schedule Routine, Read Routine (OP Routine) 06/17/2024 12:00 PM HARBOR TUG CAPTAIN Lung nodule MRI ABDOMEN MRCP W WO CONTRAST Schedule Routine, Read Routine (OP Routine) 06/02/2024 3:08 PM HARBOR TUG CAPTAIN Elevated serum alkaline phosphatase level PSC (primary sclerosing cholangitis) EGFR Routine 05/19/2024 3:33 PM HARBOR TUG CAPTAIN PSC (primary sclerosing cholangitis) DIFFERENTIAL AUTO Routine 05/19/2024 3:3 3 PM HARBOR TUG CAPTAIN PSC (primary sclerosing cholangitis) IGG Routine 05/19/2024 3:33 PM HARBOR TUG CAPTAIN PSC (primary sclerosing cholangitis) GAMMA GT Routine 05/19/2024 3:33 PM HARBOR TUG CAPTAIN PSC (primary sclerosing cholangitis) COMPREHENSIVE METABOLIC PANEL Routine 05/19/2024 3:33 PM HARBOR TUG CAPTAIN PSC (primary sclerosing cholangitis) CBC WITH AUTO DIFFERENTIAL Routine 05/19/2024 3:33 PM HARBOR TUG CAPTAIN PSC (primary sclerosing cholangitis) CANCER ANTIGEN 19-9 Routine 05/19/2024 3 :33 PM HARBOR TUG CAPTAIN PSC (primary sclerosing cholangitis) [id number], TUMOR MARKER Routine 05/19/2024 3:33 PM HARBOR TUG CAPTAIN PSC (primary sclerosing cholangitis) VITAMIN D 25 HYDROXY Routine 05/19/2024 3:33 PM HARBOR TUG CAPTAIN PSC (primary sclerosing cholangitis) VITAMIN A Routine 05/19/2024 3:33 PM HARBOR TUG CAPTAIN PSC (primary sclerosing cholangitis) VITAMIN E Routine 05/19/2024 3:33 PM HARBOR TUG CAPTAIN PSC (primary sclerosing cholangitis) LIVER ELASTOGRAPHY W/O IMAGING W/I&R Routine 05/19/2024 3:29 PM HARBOR TUG CAPTAIN PSC (primary sclerosing cholangitis) EGFR Routine 05/16/2024 9:15 AM HARBOR TUG CAPTAIN DIFFERENTIAL AUTO Routine 05/16/2024 9:1 5 AM HARBOR TUG CAPTAIN CRP (ACUTE PHASE) Routine 05/16/2024 9:1 5 AM HARBOR TUG CAPTAIN CBC WITH AUTO DIFFERENTIAL Routine 05/16/2024 9:15 AM HARBOR TUG CAPTAIN GLUCOSE, RANDOM (OUTREACH) Routine 05/16/2024 9:15 AM HARBOR TUG CAPTAIN COMPREHENSIVE METABOLIC PANEL WITHOUT GLUCOSE (OUTREACH) Routine 05/16/2024 9:15 AM HARBOR TUG CAPTAIN POC INFLUENZA A/B, COVID-19 ANTIGEN Routine 05/14/2024 3:04 PM HARBOR TUG CAPTAIN Common cold POCT RAPID STREP Routine 05/14/2024 2:53 PM HARBOR TUG CAPTAIN Common cold COLONOSCOPY 01/18/2024 7:48 AM CDT DIAGNOSTIC MAMMOGRAM BILATERAL W CHRISTIAN Schedule Routine, Read Routine (OP Routine) 01/09/2024 2:53 PM CDT History of abnormal mammogram Mass of left breast, unspecified quadrant HEPATITIS C ANTIBODY Routine 05/21/2023 10:28 AM HARBOR TUG CAPTAIN Elevated serum alkaline phosphatase level HM PAP SMEAR WITH HPV Routine 12/06/2022 from Last 3 Months or Most Recently Relevant to Health Maintenance Results * (ABNORMAL) POC Influenza A/B, COVID-19 antigen (07/18/2024 1:29 PM HARBOR TUG CAPTAIN) Influenza A Ag, POC Positive(A) Negative Influenza B Ag, POC Negative Negative COVID-19 Ag POC Presumptive Negative Presumptive Negative, Invalid Nasal 07/18/2024 1:29 PM HARBOR TUG CAPTAIN Lillie Mata NP POINT OF CARE TEST ORDERABLES Final Result * CT Chest WO Contrast (06/17/2024 12:00 PM HARBOR TUG CAPTAIN) Anatomical Region Laterality Modality Body N/A Computed Tomogra phy 06/22/2024 7:35 PM HARBOR TUG CAPTAIN Narrative 06/22/2024 7:39 PM HARBOR TUG CAPTAIN EXAM DESCRIPTION: CT CHEST WO CONTRAST REASON FOR STUDY: Lung nodule, > 8mm, lung nodule follow up Lung nodule, > 8mm, lung nodule follow up, Lung nodule (Due for follow-up testing) last seen here 1 year ago TECHNIQUE: CT scan of the chest performed without intravenous contrast using helical scanning technique. Reconstructed coronal and sagittal MPR images reviewed. All images stored on PACS. Automated exposure control was used as a dose optimization technique for this examination. COMPARISON: CT chest 06/14/2023 FINDINGS: The sensitivity for detection of solid visceral lesions is diminished without the use of intravenous contrast. LUNGS: Patent central airways. 6 mm perifissural nodule in the right lower lobe (3/46) and 5 mm nodule in the right lung base are stable (3/71). No new or enlarging pulmonary nodule. No focal consolidation PLEURA: No effusion. No pneumothorax. MEDIASTINUM/PRERNA: No identified masses or abnormal nodes. HEART: Heart size is normal with no pericardial effusion. CORONARY ARTERY CALCIFICATION: None VASCULATURE: No thoracic aortic aneurysm. AXILLA: No adenopathy. CHEST WALL: No masses. No subcutaneous air. HARDWARE/LINES/TUBES: None. UPPER ABDOMEN: No significant abnormality. MUSCULOSKELETAL: No significant abnormality. OTHER: No other significant abnormality. IMPRESSION: Stable right pulmonary nodules measuring up to 6 mm. No new or enlarging pulmonary nodule. Continued attention to follow-up. THIS IS AN ELECTRONICALLY VERIFIED FINAL REPORT 06/22/2024 7:39 PM - Electronically signed by Donna Poe M.D. FT: FT Report ID: [id number] Reading Location: [place] [address] Procedure Note Donna Camacho MD - 06/22/2024 EXAM DESCRIPTION: CT CHEST WO CONTRAST REASON FOR STUDY: Lung nodule, > 8mm, lung nodule follow up Lung nodule, > 8mm, lung nodule follow up, Lung nodule (Due for follow-up testing) last seen here 1 year ago TECHNIQUE: CT scan of the chest performed without intravenous contrastusing helical scanning technique. Reconstructed coronal and sagittal MPR images reviewed. All images stored on PACS. Automated exposure control was usedas a dose optimization technique for this examination. COMPARISON: CT chest 06/14/2023 FINDINGS: The sensitivity for detection of solid visceral lesions is diminished without the use of intravenous contrast. LUNGS: Patent central airways. 6 mm perifissural nodule in the rightlower lobe (3/46) and 5 mm nodule in the right lung base are stable (3/71). Nonew or enlarging pulmonary nodule. No focal consolidation PLEURA: No effusion. No pneumothorax. MEDIASTINUM/PRERNA: No identified masses or abnormal nodes. HEART: Heart size is normal with no pericardial effusion. CORONARY ARTERY CALCIFICATION: None VASCULATURE: No thoracic aortic aneurysm. AXILLA: No adenopathy. CHEST WALL: No masses. No subcutaneous air. HARDWARE/LINES/TUBES: None. UPPER ABDOMEN: No significant abnormality. MUSCULOSKELETAL: No significant abnormality. OTHER: No other significant abnormality. IMPRESSION: Stable right pulmonary nodules measuring up to 6 mm. No new or enlarging pulmonary nodule. Continued attention to follow-up. THIS IS AN ELECTRONICALLY VERIFIED FINAL REPORT 06/22/2024 7:39 PM - Electronically signed by Donna Poe M.D. FT: FT Report ID: [id number] Reading Location: [id number] us Lillie Mata NP IMG CT PROCEDURES Final Resul t * MRI Abdomen MRCP W WO Contrast (06/02/2024 3:08 PM HARBOR TUG CAPTAIN) Anatomical Region Laterality Modality Body N/A Magnetic Resonan ce 06/02/2024 3:45 PM HARBOR TUG CAPTAIN Impressions 06/02/2024 4:27 PM HARBOR TUG CAPTAIN Unchanged mild multifocal intrahepatic stricturing and dilatation compatible with primary sclerosing cholangitis. Dictated by: Arya Lorenzo MD The radiology attending physician has personally reviewed this study, and had reviewed and/or edited this written report and agrees with it. Electronically signed by: Johnathan Mcadams M.D. Narrative 06/02/2024 4:27 PM HARBOR TUG CAPTAIN EXAMINATION: 1. MAGNETIC RESONANCE IMAGING OF THE ABDOMEN WITH AND WITHOUT CONTRAST 2. THREE DIMENSIONAL RECONSTRUCTION OF THE BILIARY TREE AND PANCREATIC DUCT HISTORY: Crohn's, PSC, elevated alkaline phosphatase TECHNIQUE: Magnetic resonance imaging of the abdomen was performed prior to and following the uneventful administration of intravenous Gadolinium contrast. The raw data was processed on the scanner by the technologist for 3 dimensional reconstructions of the intrahepatic ducts, extrahepatics ducts, and pancreatic duct. Protocol: Liver MRCP Contrast: gadoterate 16 mL COMPARISON: CT 07/16/2023, MRI 06/03/2023 FINDINGS: Liver: No fat or iron deposition. No surface nodularity. - Bile ducts: There is mild multifocal stricturing involving the intrahepatic ducts probably the left hemiliver which is not significantly changed compared to prior exam. No new dominant stricture is noted. - Focal liver lesions: None - Vasculature: Portal splenic veins are patent. Gallbladder: Normal Pancreas: Normal Spleen: Normal Adrenals: Normal Kidneys: Scattered tiny cysts. No hydronephrosis. Other Findings: Small fat-containing ventral abdominal hernia. No abdominal lymphadenopathy. No suspicious osseous lesions. Procedure Note Johnathan Mcadams MD - 06/02/2024 EXAMINATION: 1. MAGNETIC RESONANCE IMAGING OF THE ABDOMEN WITH AND WITHOUT CONTRAST 2. THREE DIMENSIONAL RECONSTRUCTION OF THE BILIARY TREE AND PANCREATIC DUCT HISTORY: Crohn's, PSC, elevated alkaline phosphatase TECHNIQUE: Magnetic resonance imaging of the abdomen was performed prior to and following the uneventful administration of intravenous Gadolinium contrast. The raw data was processed on the scanner by the technologist for 3 dimensional reconstructions of the intrahepatic ducts, extrahepatics ducts, and pancreatic duct. Protocol: Liver MRCP Contrast: gadoterate 16 mL COMPARISON: CT 07/16/2023, MRI 06/03/2023 FINDINGS: Liver: No fat or iron deposition. No surface nodularity. - Bile ducts: There is mild multifocal stricturing involving the intrahepatic ducts probably the left hemiliver which is not significantly changed compared to prior exam. No new dominant stricture is noted. - Focal liver lesions: None - Vasculature: Portal splenic veins are patent. Gallbladder: Normal Pancreas: Normal Spleen: Normal Adrenals: Normal Kidneys: Scattered tiny cysts. No hydronephrosis. Other Findings: Small fat-containing ventral abdominal hernia. No abdominal lymphadenopathy. No suspicious osseous lesions. IMPRESSION: Unchanged mild multifocal intrahepatic stricturing and dilatation compatible with primary sclerosing cholangitis. Dictated by: Arya Lorenzo MD The radiology attending physician has personally reviewed this study, and had reviewed and/or edited this written report and agrees with it. Electronically signed by: Johnathan Mcadams M.D. Anita Kelley NP IM MRI PROCEDURES Final R esult * eGFR (05/19/2024 3:33 PM HARBOR TUG CAPTAIN) eGFR >90 >=60 mL/min/1. 73 m2 Comment: Interpretive Data Reference Interval Normal >/= 90 mL/min/1.73m2 Mildly decreased* 60 - 89 mL/min/1.73m2 Mildly to moderately decreased 45 - 59 mL/min/1.73m2 Moderately to severely decreased 30 - 44 mL/min/1.73m2 Severely decreased 15 - 29 mL/min/1.73m2 Kidney Failure < 15 mL/min/1.73m2 *Relative to young adult level Estimated glomerular filtration rate is determined by the 2020 CKD-EPI equation recommended by the National Kidney Foundation (A Unifying Approach to GFR Estimation: Recommendations of the NKF-ASK Task Force on Reassessing the Inclusion of Race in Diagnosing Kidney Disease, JASN 2020). The CKD-EPI equation should not be used for patients with unstable renal function and has not been validated in children and those over 70. Current interpretive data was last reviewed 2021. Blood 05/19/2024 3:33 PM HARBOR TUG CAPTAIN 05/19/2024 3:59 PM HARBOR TUG CAPTAIN Anita Kelley NP LAB BLOOD ORDERABLES Final Result [facility] [id number] [facility]. [place] [address] * Differential, auto (05/19/2024 3:33 PM HARBOR TUG CAPTAIN) Neutrophil abs 3.3 1.5 - 6.5 K/cumm Imm gran abs 0.0 0.0 - 0.1 K/cumm [facility] Lymphocyte abs 2.7 0.8 - 3.3 K/cumm [facility] Monocyte abs 0.5 0.2 - 0.8 K/cumm [facility] Eosinophil abs 0.2 0.0 - 0.5 K/cumm [facility] Basophil abs 0.0 0.0 - 0.1 K/cumm [facility] Neutrophil pct 49.4 % [facility] Comment: Interpretive Data Percent cell count reference ranges are not reported, since discordance with absolute values may lead to misinterpretation of CBC data. Current Interpretive Data was last revised on 2017. Imm gran pct 0.1 % [facility] Comment: Interpretive Data Percent cell count reference ranges are not reported, since discordance with absolute values may lead to misinterpretation of CBC data. Current Interpretive Data was last revised on 2017. Lymphocyte pct 40.0 % [facility] Comment: Interpretive Data Percent cell count reference ranges are not reported, since discordance with absolute values may lead to misinterpretation of CBC data. Current Interpretive Data was last revised on 2017. Monocyte pct 6.6 % [facility] Comment: Interpretive Data Percent cell count reference ranges are not reported, since discordance with absolute values may lead to misinterpretation of CBC data. Current Interpretive Data was last revised on 2017. Eosinophil pct 3.5 % [facility] Comment: Interpretive Data Percent cell count reference ranges are not reported, since discordance with absolute values may lead to misinterpretation of CBC data. Current Interpretive Data was last revised on 2017. Basophil pct 0.4 % [facility] Comment: Interpretive Data Percent cell count reference ranges are not reported, since discordance with absolute values may lead to misinterpretation of CBC data. Current Interpretive Data was last revised on 2017. Blood 05/19/2024 3:33 PM HARBOR TUG CAPTAIN 05/19/2024 3:59 PM HARBOR TUG CAPTAIN us Anita Kelley NP LAB BLOOD ORDERABLES Final Result [facility] [address] [facility]. [place] [address] * CBC with auto differential (05/19/2024 3:33 PM HARBOR TUG CAPTAIN) Pathologist [facility] WBC 6.8 3.8 - 9.9 K/cumm Hgb 13.3 11.9 - 15.5 g/dL [facility] Hct 39.7 35.6 - 45.5 % [facility] Plt 230 150 - 400 K/cumm [facility] MPV 11.4 9.1 - 12.3 fL [facility] RBC 4.41 3.90 - 5.20 M/cumm [facility] MCV 90.0 81.3 - 96.4 fL [facility] MCH 30.2 27.1 - 33.3 pg [facility] MCHC 33.5 32.3 - 35.7 g/dL [facility] RDW CV 12.3 11.1 - 14.9 % [facility] RDW SD 40.4 35.7 - 48.1 fL [facility] NRBC abs 0.00 0.00 - 0.01 K/cumm [facility] Blood 05/19/2024 3:33 PM HARBOR TUG CAPTAIN 05/19/2024 3:59 PM HARBOR TUG CAPTAIN Anita Strong Allie EL LAB BLOOD ORDERABLES Final Result Performing Organization Address [facility] Co de Phone Number [facility] [phone] [email or web address] [facility] [address] [place] [address] * Cancer antigen 19-9 (05/19/2024 3:33 PM HARBOR TUG CAPTAIN) Pathologist [facility] CA 19-9 ag 4.5 0.0 - 35.0 units/mL Comment: Interpretive Data The Valerio CA 19-9 assay procedure was used. Results from different manufacturers or methods may not be comparable. Serial testing should be performed using the same method. Testing performed by: [facility], [address] [place] [address]., [id number] Blood 05/19/2024 3:33 PM HARBOR TUG CAPTAIN 05/19/2024 6:22 PM HARBOR TUG CAPTAIN Anita Strong Allie EL LAB BLOOD ORDERABLES Final Result Performing Organization Address City/[facility] Co de Phone Number [facility] [address] [email or web address] [facility] [address] [place] [address] * Vitamin A (05/19/2024 3:33 PM HARBOR TUG CAPTAIN) Pathologist [facility] Vitamin A 69.2 32.5 - 78.0 mcg/dL [facility] Comment: ADDITIONAL INFORMATION This test was developed and its performance characteristics determined by [facility] in a manner consistent with CLIA requirements. This test has not been cleared or approved by the U.S. Food and Drug Administration. Test Performed by: [facility] Laboratories - [facility] [address] [place] [address] Insulation Cupola Operator: Reny Srivastava Ph.D.; CLIA# [id number] Blood 05/19/2024 3:33 PM HARBOR TUG CAPTAIN 05/19/2024 3:59 PM HARBOR TUG CAPTAIN Anita Kelley NP LAB BLOOD ORDERABLES Final Result [facility] [address] [facility]. [place] [address] [facility] * [id number], Tumor Marker (05/19/2024 3:33 PM HARBOR TUG CAPTAIN) alpha Fetoprotein 2.3 <=8.3 ng/mL Comment: Interpretive Data The Valerio AFP assay procedure was used. Results from different manufacturers or methods may not be comparable. Serial testing should be performed using the same method. 0-1 month. AFP concentrations may reach or exceed 100,000 ng/mL after depending on gestational age and weight. 1-3 months 50 1000 ng/ml 3-6 months 10 500 ng/ml 6-12 months 3.0 100 ng/ml >1 year 0.0 8.3 ng/ml References Sterling Y. et al. J. Ped Surg 1978;13:155-156 Anali Perez et al. Clin Chem Lab Med 2018;57:783-797 Hung Reyna et al. Clin Chem 2014;0974-5786. Current interpretive data was last revised 2022. Testing performed by: [facility], [facility] [facility], [place]., [address] Blood 05/19/2024 3:33 PM HARBOR TUG CAPTAIN 05/19/2024 6:22 PM HARBOR TUG CAPTAIN us Anita Kelley NIKKO LAB BLOOD ORDERABLES Final Result Performing Organization Address [facility]/ZIP Co de Phone Number [facility] [phone] [email or web address] [facility] [address] [place] [address] * (ABNORMAL) Vitamin D 25 hydroxy (05/19/2024 3:33 PM HARBOR TUG CAPTAIN) [facility] Vitamin D 25-OH 93(H) 30 - 80 ng/mL Blood 05/19/2024 3:33 PM HARBOR TUG CAPTAIN 05/19/2024 3:59 PM HARBOR TUG CAPTAIN Anita Kelley [employer] CART[employer]ONIST LAB BLOOD ORDERABLES Edite d Result - Final Performing Organization Address [facility] de Phone Number [facility] [phone] [email or web address] [facility] [employer] [place], [place] [id number] * Vitamin E (05/19/2024 3:33 PM HARBOR TUG CAPTAIN) [facility] Tocopherol (Vit E) 16.0 5.5 - 17.0 mg/L [facility] Comment: ADDITIONAL INFORMATION This test was developed and its performance characteristics determined by [facility] in a manner consistent with CLIA requirements. This test has not been cleared or approved by the U.S. Food and Drug Administration. Test Performed by: [facility] - [address] [address] Ins[employer] Cup[employer] Operator: Reny Srivastava Ph.D.; CLIA# [id number] Blood 05/19/2024 3:33 PM HARBOR TUG CAPTAIN 05/19/2024 3:59 PM HARBOR TUG CAPTAIN Anita Kelley NIKKO LAB BLOOD ORDERABLES Final Result Performing Organization Address [facility] Co de Phone Number [facility] [phone] [email or web address] [facility] [address] [place] [address] [facility] * (ABNORMAL) Gamma GT (05/19/2024 3:33 PM HARBOR TUG CAPTAIN) GGT 37(H) 5 - 35 Units/L Blood 05/19/2024 3:33 PM HARBOR TUG CAPTAIN 05/19/2024 3:59 PM HARBOR TUG CAPTAIN Anita Kelley [employer] CART[employer]ONIST LAB BLOOD ORDERABLES Edite d Result - Final Performing Organization Address [facility]/ZIP Co de Phone Number [facility] [address] [email or web address] [address] [place], [place] [id number] * IgG (05/19/2024 3:33 PM HARBOR TUG CAPTAIN) Pathologist [facility] Immunoglobulin G 1,306 700 - 1,600 mg/dL Comment:Testing performed by : [facility], [address] [place] [address]., [id number] Blood 05/19/2024 3:33 PM HARBOR TUG CAPTAIN 05/19/2024 6:22 PM HARBOR TUG CAPTAIN Anita Strong Allie EL LAB BLOOD ORDERABLES Final Result Performing Organization Address [facility] Co de Phone Number [facility] [phone] [email or web address] [address] [place], [place] [id number] * (ABNORMAL) Comprehensive metabolic panel (05/19/2024 3:33 PM HARBOR TUG CAPTAIN) Pathologist [facility] Sodium 139 135 - 145 mmol/L Potassium, pl 3.5 3.3 - 4.9 mmol/L [facility] Chloride 100 97 - 110 mmol/L [facility] CO2 29 22 - 32 mmol/L [facility] Anion gap 10 2 - 15 mmol/L [facility] BUN 15 6 - 25 mg/dL [facility] Creatinine 0.75 0.60 - 1.10 mg/dL [facility] Glucose 96 70 - 199 mg/dL [facility] Comment: Interpretive Data Fasting glucose >/= 126 mg/dl is diagnostic for diabetes. Fasting is defined as no caloric intake for at least 8 hours. Fasting glucose between 100 mg/dl to 125 mg/dl is diagnostic of prediabetes. In a patient with classic symptoms of hyperglycemia or hyperglycemic crisis, a random glucose >/= 200 mg/dl is diagnostic for diabetes. In the absence of unequivocal hyperglycemia, results should be confirmed by repeat testing. The classification and Diagnosis of Diabetes Diabetes Care 2021; 46: S19-S40. Current interpretive data was last revised 2022. Calcium 9.6 8.5 - 10.3 mg/dL [facility] Bilirubin, total <0.1 0.1 - 1.2 mg/dL [facility] Protein, pl 7.7 6.5 - 8.5 g/dL [facility] Albumin 4.4 3.5 - 5.0 g/dL [facility] Alk phos 240(H) 40 - 130 Units/L [facility] ALT 29 7 - 45 Units/L [facility] AST 24 10 - 45 Units/L [facility] Blood 05/19/2024 3:33 PM HARBOR TUG CAPTAIN 05/19/2024 3:59 PM HARBOR TUG CAPTAIN us Anita Kelley NP LAB BLOOD ORDERABLES Edite d Result - Final JONATHAN VILLASEÑOR [address] [facility] [place] [address] * Liver Elastography w/o Imaging W/I&R -[facility] (All Locations) (05/19/2024 3:29 PMCST) Anatomical Region Laterality Modality Other us Anita Kelley NP GI PROCEDURE ORDERABLES Fi nal Result * (ABNORMAL) Glucose, random (Outreach) (05/16/2024 9:15 AM HARBOR TUG CAPTAIN) Glucose 59(L) 70 - 199 mg/dL Comment: Interpretive Data Fasting glucose >/= 126 mg/dl is diagnostic for diabetes. Fasting is defined as no caloric intake for at least 8 hours. Fasting glucose between 100 mg/dl to 125 mg/dl is diagnostic of prediabetes. In a patient with classic symptoms of hyperglycemia or hyperglycemic crisis, a random glucose >/= 200 mg/dl is diagnostic for diabetes. In the absence of unequivocal hyperglycemia, results should be confirmed by repeat testing. The classification and Diagnosis of Diabetes Diabetes Care 2021; 46: S19-S40. Current interpretive data was last revised 2022. Blood 05/16/2024 9:15 AM HARBOR TUG CAPTAIN 05/16/2024 12:25 PM HARBOR TUG CAPTAIN West Saenz MD LAB BLOOD ORDERABLES Final Result Performing Organization Address [facility] Co de Phone Number JONATHAN [facility] [address] [place] [address] * eGFR (05/16/2024 9:15 AM HARBOR TUG CAPTAIN) eGFR >90 >=60 mL/min/1. 73 m2 Comment: Interpretive Data Reference Interval Normal >/= 90 mL/min/1.73m2 Mildly decreased* 60 - 89 mL/min/1.73m2 Mildly to moderately decreased 45 - 59 mL/min/1.73m2 Moderately to severely decreased 30 - 44 mL/min/1.73m2 Severely decreased 15 - 29 mL/min/1.73m2 Kidney Failure < 15 mL/min/1.73m2 *Relative to young adult level Estimated glomerular filtration rate is determined by the 2020 CKD-EPI equation recommended by the National Kidney Foundation (A Unifying Approach to GFR Estimation: Recommendations of the NKF-ASK Task Force on Reassessing the Inclusion of Race in Diagnosing Kidney Disease, JASN 2020). The CKD-EPI equation should not be used for patients with unstable renal function and has not been validated in children and those over 70. Current interpretive data was last reviewed 2021. Blood 05/16/2024 9:15 AM HARBOR TUG CAPTAIN 05/16/2024 12:39 PM HARBOR TUG CAPTAIN West Saenz MD LAB BLOOD ORDERABLES Final Result Performing Organization Address City/[facility]/ZIP Co de Phone Number [facility] [place] [address] * Differential, auto (05/16/2024 9:15 AM HARBOR TUG CAPTAIN) Neutrophil abs 2.4 1.5 - 6.5 K/cumm Imm gran abs 0.0 0.0 - 0.1 K/cumm [facility] Lymphocyte abs 1.7 0.8 - 3.3 K/cumm [facility] Monocyte abs 0.5 0.2 - 0.8 K/cumm [facility] Eosinophil abs 0.4 0.0 - 0.5 K/cumm [facility] Basophil abs 0.0 0.0 - 0.1 K/cumm [facility] Neutrophil pct 47.0 % [facility] Comment: Interpretive Data Percent cell count reference ranges are not reported, since discordance with absolute values may lead to misinterpretation of CBC data. Current Interpretive Data was last revised on 2017. Imm gran pct 0.2 % [facility] Comment: Interpretive Data Percent cell count reference ranges are not reported, since discordance with absolute values may lead to misinterpretation of CBC data. Current Interpretive Data was last revised on 2017. Lymphocyte pct 34.8 % [facility] Comment: Interpretive Data Percent cell count reference ranges are not reported, since discordance with absolute values may lead to misinterpretation of CBC data. Current Interpretive Data was last revised on 2017. Monocyte pct 9.0 % [facility] Comment: Interpretive Data Percent cell count reference ranges are not reported, since discordance with absolute values may lead to misinterpretation of CBC data. Current Interpretive Data was last revised on 2017. Eosinophil pct 8.2 % [facility] Comment: Interpretive Data Percent cell count reference ranges are not reported, since discordance with absolute values may lead to misinterpretation of CBC data. Current Interpretive Data was last revised on 2017. Basophil pct 0.8 % [facility] Comment: Interpretive Data Percent cell count reference ranges are not reported, since discordance with absolute values may lead to misinterpretation of CBC data. Current Interpretive Data was last revised on 2017. Blood 05/16/2024 9:15 AM HARBOR TUG CAPTAIN 05/16/2024 12:25 PM HARBOR TUG CAPTAIN West Saenz MD LAB BLOOD ORDERABLES Final Result Performing Organization Address [facility]/ZIP Co de Phone Number [facility] [place] [address] * (ABNORMAL) Comprehensive metabolic panel, without glucose (Outreach) (05/16/2024 9:15 AM HARBOR TUG CAPTAIN) Pathologist [facility] Sodium 142 135 - 145 mmol/L Potassium, pl 3.7 3.3 - 4.9 mmol/L [facility] Chloride 103 97 - 110 mmol/L [facility] CO2 27 22 - 32 mmol/L [facility] Anion gap 12 2 - 15 mmol/L [facility] BUN 10 6 - 25 mg/dL [facility] Creatinine 0.71 0.60 - 1.10 mg/dL [facility] Calcium 9.5 8.5 - 10.3 mg/dL [facility] Protein, pl 7.4 6.5 - 8.5 g/dL [facility] Albumin 4.4 3.5 - 5.0 g/dL [facility] Bilirubin, total 0.2 0.1 - 1.2 mg/dL [facility] Alk phos 237(H) 40 - 130 Units/L [facility] AST 26 10 - 45 Units/L [facility] ALT 31 7 - 45 Units/L [facility] Blood 05/16/2024 9:15 AM HARBOR TUG CAPTAIN 05/16/2024 12:25 PM HARBOR TUG CAPTAIN West Saenz MD LAB BLOOD ORDERABLES Final Result [facility] [place] [address] * CBC with auto differential (05/16/2024 9:15 AM HARBOR TUG CAPTAIN) Pathologist [facility] WBC 5.0 3.8 - 9.9 K/cumm Hgb 13.5 11.9 - 15.5 g/dL [facility] Hct 40.8 35.6 - 45.5 % [facility] Plt 223 150 - 400 K/cumm [facility] MPV 12.1 9.1 - 12.3 fL [facility] RBC 4.56 3.90 - 5.20 M/cumm [facility] MCV 89.5 81.3 - 96.4 fL [facility] MCH 29.6 27.1 - 33.3 pg [facility] MCHC 33.1 32.3 - 35.7 g/dL [facility] RDW CV 12.4 11.1 - 14.9 % [facility] RDW SD 41.1 35.7 - 48.1 fL [facility] NRBC abs 0.00 0.00 - 0.01 K/cumm [facility] Blood 05/16/2024 9:15 AM HARBOR TUG CAPTAIN 05/16/2024 12:25 PM HARBOR TUG CAPTAIN West Saenz MD LAB BLOOD ORDERABLES Final Result Performing Organization Address City/[facility]/ZIP Co de Phone Number [facility] [place] [address] * CRP (acute phase) (05/16/2024 9:15 AM HARBOR TUG CAPTAIN) [facility] CRP 7.3 <=10.0 mg/L Blood 05/16/2024 9:15 AM HARBOR TUG CAPTAIN 05/16/2024 12:25 PM HARBOR TUG CAPTAIN West Saenz MD LAB BLOOD ORDERABLES Final Result [facility] [place] [address] * POC Influenza A/B, COVID-19 antigen (05/14/2024 3:04 PM HARBOR TUG CAPTAIN) Pathologist [facility] Influenza A Ag, POC Negative Negative [facility] Influenza B Ag, POC Negative Negative [facility] COVID-19 Ag POC Presumptive Negative Presumptive Negative, Invalid [facility] Nasopharyngeal 05/14/2024 3: 04 PM HARBOR TUG CAPTAIN Lj Bruce NP POINT OF CARE TEST ORDERABLES F inal Result [facility] [address] [place] [address] * POCT rapid strep A (05/14/2024 2:53 PM HARBOR TUG CAPTAIN) Rapid Strep A, POC Negative Negative Swab 05/14/2024 2:53 PM HARBOR TUG CAPTAIN us Lj Bruce NP POINT OF CARE TEST ORDERABLES F inal Result * Colonoscopy (01/18/2024 7:48 AM CDT) Anatomical Region Laterality Modality Other Narrative Procedure Note West Saenz MD - 01/18/2024 7:48 AM CDT ENDOSCOPY LAB Patient Name: Linnea Martinez Procedure Date: 01/18/2024 7:48 AM Date of : 1975 Admit Type: Outpatient Age: 48 Gender: Female Attending MD: West Saenz M.D. 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 Referring MD: West Saenz M.D. Medicines: Monitored Anesthesia Care Complications: No immediate complications. Estimated Blood Loss: Estimated blood loss was minimal. Procedure: Pre-Anesthesia Assessment: - Immediately prior to administration ofmedications, the patient was re-assessed for adequacy to receive sedatives. The benefits, risks and alternatives of theprocedure and sedation were discussed and informed consentwas obtained. All questions were answered. Please referto the signed informed consent document in the medical record. The scope was passed under direct vision.The [id number] was introduced through the anusand advanced to the terminal ileum. The colonoscopy was performed without difficulty. The patient tolerated the procedure well. The quality of the bowel preparation was evaluated using the BBPS (BostonBowel Preparation Scale) with scores of: Right Colon = 3, Transverse Colon = 3 and Left Colon = 3 (entiremucosa seen well with no residual staining, smallfragments of stool or opaque liquid). The total BBPS score equals 9. The bowel preparation used was Miralaxvia split dose instruction. The quality of the bowel preparation was excellent. Findings: The perianal and digital rectal examinations were normal. There was evidence of a prior functional end-to-end ileo-colonic anastomosis in the ascending colon. This was patent and was characterized by erosion. The anastomosis was traversed. The inder-terminal ileum appeared normal. A 3 mm polyp was found in the sigmoid colon. The polyp was Unique classification Is (protruding, sessile). The polyp was removed with a cold biopsy forceps. Resection and retrieval were complete. A 3 mm polyp was found in the rectum. The polyp was Parisclassification Is (protruding, sessile). The polyp was removed with a cold biopsy forceps. Resection and retrieval were complete. Internal hemorrhoids were found during retroflexion. The hemorrhoids were Grade I (internal hemorrhoids that do not prolapse). The exam was otherwise normal throughout the examined colon. Impression: - Patent functional end-to-end ileo-colonic anastomosis, characterized by erosion. - The examined portion of the ileum was normal. - One 3 mm polyp in the sigmoid colon, removed witha cold biopsy forceps. Resected and retrieved. - One 3 mm polyp in the rectum, removed with a cold biopsy forceps. Resected and retrieved. - Internal hemorrhoids. - Crohn's disease in remission. Recommendation: - Await pathology results. - Continue present medications. - Repeat colonoscopy in 1 year for surveillance. - Return to GI clinic as previously scheduled. - - Contact Information: During normal business hours - Please call theNurse Coordinator: [phone]. After hours, evening, nights, weekends and holidays- Please call the hospital refinery operator helper at and ask for the GI fellow biotech production specialist. Electronically signed by West Saenz MD West Saenz M.D. 01/18/2024 8:27:45 AM Number of Addenda: 0 Note Initiated On: 01/18/2024 7:48 AM West Saenz MD ENDOSCOPY PROCEDURES Final Result * Diagnostic Mammogram Bilateral W Christian (01/09/2024 2:53 PM CDT) Anatomical Region Laterality Modality Breast Bilateral Mammography 01/09/2024 3:35 PM CDT Impressions 01/09/2024 3:35 PM CDT 1. No mammographic finding of malignancy in the right breast. 2. No mammographic or sonographic finding of malignancy in the left breast. ACR BI-RADS CATEGORY 2: BENIGN RECOMMENDATION: Annual screening mammography in 1 year is recommended. Findings and recommendations were communicated to the patient. *The patient's information was entered into a reminder system with a target due date for the next mammogram. Electronically signed by: DRU BAIRD M.D. Narrative 01/09/2024 3:35 PM CDT EXAM: DIAGNOSTIC MAMMOGRAM BILATERAL W CHRISTIAN, US BREAST LEFT LIMITED CLINICAL INDICATION: The patient is presenting for annual mammography. She is following up for evaluation of previously described probably benign findings in the left breast. TECHNIQUE: Bilateral full-field digital diagnostic mammography with computer aided detection. 3D tomosynthesis images were performed. Limited/targeted sonography of the left breast performed. COMPARISON: FINDINGS: There are scattered areas of fibroglandular density. There are no suspicious calcifications, masses, or areas of architectural distortion. Left breast ultrasound: There is a stable 1.2 x 0.5 x 0.3 cm complicated cyst at 2:30, 6 cm from the nipple that has not changed significantly since 12/26/2021. The previously noted hypoechoic mass at 2:00 7 cm from the nipple has resolved. During real-time sonography, the patient also mentioned in area of focal tenderness/pain at 3:00 13 cm from the nipple which was unremarkable on ultrasound evaluation. Ondina Jett MD IMG MAMMO PROCEDURES Anne l Result * Hepatitis C antibody Blood (05/21/2023 10:28 AM HARBOR TUG CAPTAIN) Hep C Ab Nonreactive Nonreactive JONATHAN VILLASEÑOR Comment: Interpretive Data Nonreactive: Antibodies to HCV not detected. Does NOT exclude the possibility of recent exposure to HCV. Equivocal: Equivocal for HCV antibodies. Supplemental molecular testing will be automatically performed to determine infection status in accordance with current CDC screening recommendations. Reactive: Positive for HCV antibodies. This may represent current or past HCV infection. Supplemental molecular testing will be automatically performed to determine current infection status in accordance with current CDC screening recommendations. Interpretive data was last revised on 2019. Testing performed by: [facility], [address] [place] [address]., [id number] Blood 05/21/2023 10:2 8 AM HARBOR TUG CAPTAIN 05/21/2023 12:45 PM HARBOR TUG CAPTAIN Anita Kelley NP LAB MICROBIOLOGY - GENERAL ORDERABLES Edited Result - Final [facility] [address] [facility] [address] * HM PAP SMEAR WITH HPV (12/06/2022) 12/06/2022 us Historical Provider MD HEALTH MAINTENANCE Final Result from Last 3 Months or Most Recently Relevant to Health Maintenance Insurance [facility] [employer] [facility] [employer] Advance Directives For more information, please contact: [phone] * Full Code (Latest Code Status on File) Date Activated Date Inactivated Comments 01/18/2024 7:28 AM 01/18/2024 1:10 PM * Full Code Date Activated Date Inactivated Comments 07/16/2023 5:34 PM 07/25/2023 3:36 PM * Full Code Date Activated Date Inactivated Comments 07/09/2023 2:01 AM 07/11/2023 11:05 PM Care Teams Game Bird Farmer Relationship Specialty Start Date End Date Terese Garcia MD PCP - General Internal Medicine 04/03/19 Kt Carmona MD Consulting Physician Colon and Rectal Surgery 07/20/23 West Saenz MD [address] [facility] [address] [place] [address] Consulting Physician Gastroenterology 07/20/23
--- OUTSIDE RECORDS SUMMARY | 2024-07-28 14:50 | XMS_ITS | Encounter Summary ---
Author Organization [employer] Address [address] [place] [address] Care Team Providers Care Radiation Officer Name Role Phone Gómez Raymundo MD Primary Care Provider [phone]- [phone] Encounter Details Date Type Department Care Team (Late st Contact Info) Description 11/03/1999 Outpatient Historical Division of Neurology [address] [address] Caden Suarez MD [address] [facility] [address] [place] [address] Social History Tobacco Use Types Packs/Day Years Used Date Smoking Tobacco: Never Assessed Comments Unknown Sex and Gender Information Value Date Recorded Sex Assigned at Not on file Legal Sex Female 3:35 AM DIRECTOR [employer] Gender Identity Not on file Sexual Orientation Not on file documented as of this encounter Plan of Treatment Not on file documented as of this encounter Visit Diagnoses Not on filedocumented in this encounter Care Teams Radiation Officer Relationship Specialty Start Date End Date Gómez Raymundo MD [address] [place] [address] [address] [place] [address] PCP - General 11/17/00 documented as of this encounter
--- OUTSIDE RECORDS SUMMARY | 2024-07-28 14:50 | XMS_ITS | Patient Health Summary ---
Author Organization [facility] Address [address] [place] [address] Care Team Providers Care Rib Bender Name Role Phone Unavailable Primary Care Provider Unavailabl e Note from [facility],non-owned Affiliates and Associated Physician Practices is amultiple site organization consisting of ambulatory clinics and hospital sitesin [place], [place], [place] and [place]. This disclosure is being madepursuant to the Care Everywhere program and may not contain all information available regarding this patient. Last updated 18.[facility] Allergies * Nyquil(Urticaria) -Medium Criticality * Pseudoephedrine Base(Other) Medications * Be aware that medications may not be up to date on this document. Alwaysverify current medications with the patient. * MERCAPTOPURINE PO * Mesalamine (PENTASA PO) * CARBAMAZEPINE ER PO * Omeprazole (PRILOSEC PO) Immunizations * INFLUENZA VACCINE, QUADR. (FLUZONE; FLULAVAL; FLUARIX; AFLURIA QUADRIVALENT; 6MO+), 0.5 ML (IIV4)(Given 04/15/2019) Social History Tobacco Use Types Packs/Day Years Used Date Smoking Tobacco: Never Smokeless Tobacco: Never Sex and Gender Information Value Date Recorded Sex Assigned at Not on file Gender Identity Not on file Sexual Orientation Not on file Last Filed Vital Signs Vital Sign Reading Time Taken Comments Blood Pressure 122/76 05/07/2018 4:56 PM PARKING METER ATTENDANT Pulse 61 05/07/2018 4:56 PM PARKING METER ATTENDANT Temperature 36.8 C (98.2 F) 05/07/2018 4:56 PM PARKING METER ATTENDANT Respiratory Rate 16 05/07/2018 4:56 PM PARKING METER ATTENDANT Oxygen Saturation 99% 05/07/2018 4:56 PM PARKING METER ATTENDANT Inhaled Oxygen Concentration - - Weight 67.1 kg (148 lb) 05/07/2018 4:56 PM PARKING METER ATTENDANT Height 165.1 cm (5' 5 ) 05/07/2018 4:56 PM PARKING METER ATTENDANT Body Mass Index 24.63 05/07/2018 4:56 PM PARKING METER ATTENDANT Procedures * CULTURE URINE(Performed 05/07/2018) Performed for Acute cystitis with hematuria * STREP A SCREEN - POINT OF CARE (AMB) STL(Performed 05/07/2018) Performed for Upper respiratory tract infection, unspecified type * URINALYSIS AUTO - POINT OF CARE (AMB) STL(Performed 05/07/2018) Performed for Acute cystitis with hematuria * STREP A SCREEN - POINT OF CARE (AMB) STL(Performed 01/02/2017) Performed for Acute frontal sinusitis, recurrence not specified Results * CULTURE URINE (05/07/2018 5:33 PM PARKING METER ATTENDANT) Culture [facility] Comment: CULTURE, URINE, ROUTINE MICRO NUMBER: [id number] TEST STATUS: FINAL SPECIMEN SOURCE: URINE, CLEAN CATCH SPECIMEN QUALITY: ADEQUATE RESULT: No Growth Test Performed at: [id number] [address] REY PAINTING MD Urine URINE SPECIMEN OBTAINED BY CLEAN CATCH PROCEDURE / Unknown 05/07/2018 5:33 PM PARKING METER ATTENDANT 05/08/2018 12:56 AM PARKING METER ATTENDANT L[facility] - MICROBIOLOG Y ORDERABLES [address] [address] * STREP A SCREEN - POINT OF CARE (AMB) STL (05/07/2018 5:32 PM PARKING METER ATTENDANT) Only the most recent of2 resultswithin the time period is included. Strep A Rapid POCT Negative Negative Strep A Internal Control Present Lot # [id number] Expiration Date 10 10 2019 Throat ENTIRE THROAT (SURFACE REGION OF NECK) / Unknown 05/07/2018 5:32 PM PARKING METER ATTENDANT L[facility] - POINT OF CA RE ORDERABLES * (ABNORMAL) URINALYSIS AUTO - POINT OF CARE (AMB) STL (05/07/2018 5:11 PM PARKING METER ATTENDANT) Clarity UA POCT cloudy Color UA POCT yellow Leukocyte UA 70 Negative Nitrite UA POCT negative Negative Urobilinogen UA 0.2 0.1 - 1.0 Protein UA POCT 15 Negative pH UA 7.5 5.0 - 8.0 pH units Blood UA 50 Negative Specific [place] UA POCT 1.010 1.002 - 1.030 Ketone UA negative Negative Bilirubin UA POCT negative Negative Glucose UA negative Negative Expiration Date 03/09/2020 Lot # [id number] QC Verified Yes Yes Urine URINE / Unknown 05/07/2018 5 :11 PM PARKING METER ATTENDANT Lj Bruce APRN-INSPECTOR [employer] [facility] - POINT OF CA RE ORDERABLES
--- OUTSIDE RECORDS SUMMARY | 2024-07-28 14:50 | XMS_ITS | Encounter Summary ---
Author Organization [employer] Address [address] [place] [address] Care Team Providers Care Coordinator Of Health Services Name Role Phone Gómez Raymundo MD Primary Care Provider [phone]- [phone] Encounter Details Date Type Department Care Team (Late st Contact Info) Description 08/10/2006 Outpatient Historical HIS MRI DEPT Caden Suarez MD [address] [facility] [address] [place] [id number] [place], not Intractabl ([facility]) (Primary Dx) Social History Tobacco Use Types Packs/Day Years Used Date Smoking Tobacco: Never Assessed Comments Unknown Sex and Gender Information Value Date Recorded Sex Assigned at Not on file Legal Sex Female 3:35 AM VENTILATING EXPERT Gender Identity Not on file Sexual Orientation Not on file documented as of this encounter Plan of Treatment Not on file documented as of this encounter Visit Diagnoses Diagnosis Generalized convulsive epilepsy without mention of intractable epilepsy ([facility])- Primary Generalized convulsive epilepsy without mention of intractable epilepsy documented in this encounter Care Teams Coordinator Of Health Services Relationship Specialty Start Date End Date Gómez Raymundo MD [facility] [address] [place] [address] PCP - General 11/17/00 documented as of this encounter
--- OUTSIDE RECORDS SUMMARY | 2024-07-28 14:50 | XMS_ITS | Encounter Summary ---
Author Organization [employer] Address [address] [place] [address] Care Team Providers Care Child Daycare Worker Name Role Phone Gómez Raymundo MD Primary Care Provider +1- [phone] Encounter Details Date Type Department Care Team (Late st Contact Info) Description 09/29/2003 Outpatient Historical Division of Neurology [address] [address] Caden Suarez MD [address] [facility] [address] [place] [address] Social History Tobacco Use Types Packs/Day Years Used Date Smoking Tobacco: Never Assessed Comments Unknown Sex and Gender Information Value Date Recorded Sex Assigned at Not on file Legal Sex Female 3:35 AM POWDER OPERATOR Gender Identity Not on file Sexual Orientation Not on file documented as of this encounter Plan of Treatment Not on file documented as of this encounter Visit Diagnoses Not on filedocumented in this encounter Care Teams Child Daycare Worker Relationship Specialty Start Date End Date Gómez Raymundo MD [address] [place] [address] [address] [place] [address] PCP - General 11/17/00 documented as of this encounter
--- OUTSIDE RECORDS SUMMARY | 2024-07-28 14:50 | XMS_ITS | Clinical Summary ---
Author Organization [facility] Address [address] [place] [address] Care Team Providers Care Medical And Scientific Illustrator Name Role Phone Unavailable Primary Care Provider Unavailabl e Source Comments [facility],non-owned Affiliates and Associated Physician Practices is amultiple site organization consisting of ambulatory clinics and hospital sitesin [place], [place], [place] and [place]. This disclosure is being madepursuant to the Care Everywhere program and may not contain all information available regarding this patient. Last updated 18.[facility] Allergies Active Allergy Reactions Criticality Noted Date Comments Nyquil Urticaria Medium 01/02/2017 Pseudoephedrine Base Other 05/07/2018 Heart palpations Medications * Be aware that medications may not be up to date on this document. Alwaysverify current medications with the patient. Medication Sig Dispensed Refills Start Date End Date Status MERCAPTOPURINE PO Active Mesalamine (PENTASA PO) A ctive CARBAMAZEPINE ER PO Activ e Omeprazole (PRILOSEC PO) Active Immunizations Name Administration Dates Next Due INFLUENZA VACCINE, QUADR. (F LUZONE; FLULAVAL; FLUARIX; AFLURIA QUADRIVALENT; 6MO+), 0.5 ML (IIV4) 04/15/2019 Family History Medical History Relation Name Comments Arthritis - Rheumatoid Mother Hyperlipidemia Mother Relation Name Status Comments Mother Social History Tobacco Use Types Packs/Day Years Used Date Smoking Tobacco: Never Smokeless Tobacco: Never Sex and Gender Information Value Date Recorded Sex Assigned at Not on file Gender Identity Not on file Sexual Orientation Not on file Last Filed Vital Signs Vital Sign Reading Time Taken Comments Blood Pressure 122/76 05/07/2018 4:56 PM COMPLAINT CLERK Pulse 61 05/07/2018 4:56 PM COMPLAINT CLERK Temperature 36.8 C (98.2 F) 05/07/2018 4:56 PM COMPLAINT CLERK Respiratory Rate 16 05/07/2018 4:56 PM COMPLAINT CLERK Oxygen Saturation 99% 05/07/2018 4:56 PM COMPLAINT CLERK Inhaled Oxygen Concentration - - Weight 67.1 kg (148 lb) 05/07/2018 4:56 PM COMPLAINT CLERK Height 165.1 cm (5' 5 ) 05/07/2018 4:56 PM COMPLAINT CLERK Body Mass Index 24.63 05/07/2018 4:56 PM COMPLAINT CLERK Plan of Treatment Health Maintenance Due Date Last Done Comments COLOGUARD (AGES 45-75) - COL ON CA SCREENING 1977 COLON MONITORING 1977 COLONOSCOPY - COLON CA SCREENING 1977 CT COLONOGRAPHY - COLON CA SCREENING 1977 Colorectal Cancer Screening 1977 FIT - COLON CA SCREENING 1977 FLEX SIG - COLON CA SCREENING 1977 LIPID TESTING 1977 MAMMOGRAM 1977 PAP SMEAR 1977 HIV SCREENING 02/02/1992 HEPATITIS C SCREENING 01/28/1995 DTAP/TDAP/TD VACCINES (1 - Tdap) 02/02/1996 HEPATITIS B VACCINE (1 of 3 - 19+ 3-dose series) 02/02/1996 COVID-19 VACCINE (2023-2 5 season) 2024 INFLUENZA VACCINE (#1) 2024 9, 03/18/2015, 04/18/2008 DEPRESSION SCREENING 06/18/2024 ZOSTER VACCINE (1 of 2) 2027 HIB VACCINE Aged Out No longer eligi ble based on patient's age to complete this topic HPV VACCINE Aged Out No longer eligi ble based on patient's age to complete this topic MENINGOCOCCAL (Group B) VACCINE Aged Out No longer eligible b ased on patient's age to complete this topic MENINGOCOCCAL VACCINE Aged Out No zaid santos eligible based on patient's age to complete this topic PNEUMOCOCCAL VACCINE Aged Out No long er eligible based on patient's age to complete this topic
--- OUTSIDE RECORDS SUMMARY | 2024-07-28 14:50 | XMS_ITS | Encounter Summary ---
Author Organization [employer] Address [address] [place] [address] Care Team Providers Care Applications Processor Name Role Phone Gómez Raymundo MD Primary Care Provider +1- [phone] Encounter Details Date Type Department Care Team (Late st Contact Info) Description 01/02/2000 Outpatient Historical Division of Neurology [address] [address] Caden Suarez MD [address] [facility] [address] [place] [address] Social History Tobacco Use Types Packs/Day Years Used Date Smoking Tobacco: Never Assessed Comments Unknown Sex and Gender Information Value Date Recorded Sex Assigned at Not on file Legal Sex Female 3:35 AM SIGNWRITER Gender Identity Not on file Sexual Orientation Not on file documented as of this encounter Plan of Treatment Not on file documented as of this encounter Visit Diagnoses Not on filedocumented in this encounter Care Teams Applications Processor Relationship Specialty Start Date End Date Gómez Raymundo MD [address] [place] [address] [address] [place] [address] PCP - General 11/17/00 documented as of this encounter
--- OUTSIDE RECORDS SUMMARY | 2024-07-28 14:50 | XMS_ITS | Encounter Summary ---
Author Organization [employer] Address 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
--- OUTSIDE RECORDS SUMMARY | 2024-07-28 14:50 | XMS_ITS | Encounter Summary ---
Author Organization [facility] Address [address] [place] [address] Care Team Providers Care Charter Boat Operator Name Role Phone Gómez Raymundo MD Primary Care Provider +1- [phone] Encounter Details Date Type Department Care Team (Late st Contact Info) Description 05/21/2001 Outpatient Historical Division of Neurology 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
--- OUTSIDE RECORDS SUMMARY | 2024-07-28 14:50 | XMS_ITS | Encounter Summary ---
Author Organization [employer] Address [address] [place] [address] Care Team Providers Care Gold Buyer Name Role Phone Gómez Raymundo MD Primary Care Provider +1- [phone] Encounter Details Date Type Department Care Team (Late st Contact Info) Description 10/11/2005 Outpatient Historical HIS MRI DEPT Caden Suarez MD [address] [facility] [place] [facility] [address] [place] [id number] Grand Mal, not Intractabl ([facility]) (Primary Dx) Social History Tobacco Use Types Packs/Day Years Used Date Smoking Tobacco: Never Assessed Comments Unknown Sex and Gender Information Value Date Recorded Sex Assigned at Not on file Legal Sex Female 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 Gender Identity Not on file Sexual Orientation Not on file documented as of this encounter Plan of Treatment Not on file documented as of this encounter Visit Diagnoses Diagnosis Generalized convulsive epilepsy without mention of intractable epilepsy ([facility])- Primary Generalized convulsive epilepsy without mention of intractable epilepsy documented in this encounter Care Teams Gold Buyer Relationship Specialty Start Date End Date Gómez Raymundo MD [facility] [facility] [address] [place] [address] PCP - General 11/17/00 documented as of this encounter
--- OUTSIDE RECORDS SUMMARY | 2024-07-28 14:50 | XMS_ITS | Encounter Summary ---
Author Organization [employer] Address [address] [place] [address] Care Team Providers Care Manager Clinical Name Role Phone Gómez Raymundo MD Primary Care Provider +1- [phone] Encounter Details Date Type Department Care Team (Late st Contact Info) Description 07/05/1999 Outpatient Historical HIS MRI DEPT Caden Suarez MD [address] [facility] [address] [place] [phone] Nonspecific (abnormal) findings on radiological and other examination of skull and head (Primary Dx) Social History Tobacco Use Types Packs/Day Years Used Date Smoking Tobacco: Never Assessed Comments Unknown Sex and Gender Information Value Date Recorded Sex Assigned at Not on file 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
--- OUTSIDE RECORDS SUMMARY | 2024-07-28 14:50 | XMS_ITS | Continuity of Care Document ---
Author Organization [facility] Address [address] [facility] [address] [address] Phone Care Team Providers Care Textile Artist Name Role Phone Chavarria OD, Alexander Unavailable Unavailable Advance Directives Directive Yes / No Effective Date File Name No Information Encounters Encounter Description Practice Location Reason(s) For Visit Diagnoses Date Provider Providers Copied on Encounter [facility], [address], , [id number], [place] tel:[phone] [facility] No Information 4-200 0 Chavarria OD Alexander. [address] , [address], [place], [address], [place]. tel:[phone] Family History Family Member Type Diagnosis Age At Onset No Information Payers Payer name Insurance type Covered alliance party ID Authoriza tion(s) No Information Social History Type Description Quantity Date Captured Comments Sex Female Smoking Status No Information Chief Complaint And Reason For Visit No Information Reason For Referral Reason For Referral No Information History Of Present Illness Encounter Date Complaint History Of Prese nt Illness No Information Functional Status Date Functional Assessmen t No Information Instructions Date Instruction Additional Infor mation No Information Assessments Type Assessment Date No Information Patient Care Teams Name Effective Dates (start - stop) Status Members No Information
--- OUTSIDE RECORDS SUMMARY | 2024-07-28 14:50 | XMS_ITS | Encounter Summary ---
Author Organization [employer] Address [address] [place] [address] Care Team Providers Care Validation Specialist Name Role Phone Gómez Raymundo MD Primary Care Provider +1- [phone] Encounter Details Date Type Department Care Team (Late st Contact Info) Description 10/08/2002 Outpatient Historical Division of Neurology 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
--- OUTSIDE RECORDS SUMMARY | 2024-07-28 14:50 | XMS_ITS | Clinical Summary ---
Author Organization [facility] Address [address] [place] [address] Phone Care Team Providers Care Program Manager Slp Name Role Phone Gómez Raymundo MD Primary Care Provider +1- [phone] Allergies Active Allergy Reactions Criticality Noted Date Comments Flnhkyptj-Vfl-Hk-Acetaminophen Hives High 12/07 Medications mercaptopurine (PURINETHOL) 50 mg tablet Take 75 mg by mouth daily. Active mesalamine (PENTASA) 500 mg Extended Release capsule Take 500 mg by mouth 2 times daily. Active multivitamin (DAILY-TUNDE) tablet Take 1 Tab by mouth daily. Active folic acid (FOLVITE) 1 mg tablet Take 1 mg by mouth daily. Active CALCIUM CARBONATE/VITAMI N D3 (CALCIUM+D ORAL) Take 1 Tab by mouth daily. Active carBAMazepine (CARBATROL) 300 mg Extended Release 12 hour capsuleIndicatio ns:Partial idiopathic epilepsy with seizures of localized onset, not intractable, without status epilepticus (CMS/HCC) Take 1 Capsule (300 mg) by mouth 2 times daily. 180 Capsule 05/22/2023 Active Active Problems Problem Noted Date Diagnosed Date Epilepsy 09/21/2014 Overview (09/21/2014): Partial and 2 TC... 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 Stable 15 years. 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 Gender Identity Not on file Sexual Orientation Not on file Last Filed Vital Signs Vital Sign Reading Time Taken Comments Blood Pressure 130/86 12/12/2018 10:54 AM CDT Pulse 60 12/12/2018 10:54 AM CDT Temperature - - Respiratory Rate - - Oxygen Saturation - - Inhaled Oxygen Concentration - - Weight 66.2 kg (146 lb) 12/12/2018 10:54 AM CDT Height 166.4 cm (5' 5.5 ) 12/12/2018 10:54 AM CD T Body Mass Index 23.93 12/12/2018 10:54 AM CDT Plan of Treatment Health Maintenance Due Date Last Done Comments HEPATITIS B VACCINES (1 of 3 - 19+ 3-dose series) 02/02/1996 CERVICAL CANCER SCREENING 2007 BREAST CANCER SCREENING 2017 COLORECTAL SCREENING 2022 Colorectal Cancer Screening 2022 FIT-DNA Q 3 years 2022 FIT/FOBT Q 1 year 2022 Flex Sig/CT Colonography Q 5 years 2022 INFLUENZA VACCINE (#1) 2024 9, 03/18/2018, 03/18/2015, Additional history exists DTAP/TDAP/TD VACCINES (2 - T d or Tdap) 07/19/2025 07/19/2015 Insurance [facility] ACC[facility] H[place] [employer] [facility] Care Teams Program Manager Slp Relationship Specialty Start Date End Date Gómez Raymundo MD [facility] [address] PCP - General 11/17/00
--- OUTSIDE RECORDS SUMMARY | 2024-07-28 14:50 | XMS_ITS | Encounter Summary ---
Author Organization [employer] Address [address] [place] [address] Care Team Providers Care Charter Pilot Name Role Phone Gómez Raymundo MD Primary Care Provider +1- [phone] Encounter Details Date Type Department Care Team (Late st Contact Info) Description 09/27/2007 Outpatient Historical [facility] Er, Authorized P NO ADDRESS ON FILE Ondina Michael MD [address] [address] Matheus Ibarra MD [address] [id number] Abdominal Pain, Unspecified Site Social History Tobacco Use Types Packs/Day Years Used Date Smoking Tobacco: Never Assessed Comments Unknown Sex and Gender Information Value Date Recorded Sex Assigned at Not on file Legal Sex Female 3:35 AM VP SITE Gender Identity Not on file Sexual Orientation Not on file documented as of this encounter Plan of Treatment Not on file documented as of this encounter Procedures Procedure Name Priority Date/Time Associated Diagnosis Comments C-REACTIVE PROTEIN Routine 09/28/2007 9: 40 AM CDT BASIC METABOLIC PANEL Routine 09/28/2007 9:[address] ABDOMEN PELVIS W CONTRAST Stat 09/27/2007 2:55 AM CDT CBC WITH DIFFERENTIAL Stat 09/27/2007 1:01 AM CDT C-REACTIVE PROTEIN Stat 09/27/2007 1: 01 AM CDT HCG QUANTITATIVE, BLOOD Stat 09/27/2007 1:01 AM CDT COMPREHENSIVE METABOLIC PANEL Stat 09/27/2007 1:01 AM CDT documented in this encounter Results * (ABNORMAL) C-REACTIVE PROTEIN (09/28/2007 9:40 AM CDT) Pathologist [facility] CRP 1.3(H) 0.0 - 0.8 mg/dL [facility] Blood specimen (specimen) 09/28/2007 9:40 AM CDT 09/28/2007 9:50 AM CDT Matheus Ibarra MD CHEMISTRY ORDERABLES Final Re sult [facility] [address] [place] [place] [address] * (ABNORMAL) BASIC METABOLIC PANEL (09/28/2007 9:40 AM CDT) BUN 6 6 - 20 mg/dL [facility] CHLORIDE 107 96 - 108 mmol/L [facility] GLUCOSE 65 65 - 99 mg/dL [facility] SODIUM 140 135 - 145 mmol/L [facility] CALCIUM 8.2(L) 8.4 - 10.2 mg/dL [facility] CO2 24 22 - 30 mmol/L [facility] CREATININE 0.74 0.51 - 0.95 mg/dL [facility] POTASSIUM 3.6 3.5 - 4.9 mmol/L [facility] GFR, >60 >=60 mL/min/1. 7 sq meter [facility] GFR >60 >=60 mL/min/1. 7 sq meter [facility] Comment: Estimated GFR rate interpretative information for both Americans and non- Americans is available on the [facility] Intranet at: [email or web address] Select: Lab Policies and Procedures Select: Reference Ranges - GFR Blood specimen (specimen) 09/28/2007 9:40 AM CDT 09/28/2007 9:50 AM CDT us Matheus Ibarra MD CHEMISTRY ORDERABLES Edited [facility] [address] [place] [address] * CT ABDOMEN PELVIS W CONTRAST (09/27/2007 2:55 AM CDT) Anatomical Region Laterality Modality Abdomen Other 09/27/2007 2:55 AM CDT Narrative 09/27/2007 7:49 AM CDT [facility] [address] [place], [place] [address] Admit Date: 09/27/2007 LINNEA MARTINEZ Sex: F Admit Prov: ER, AUTHORIZED P Date: 1975 Primary Care Prov: PCP , NONE CMRN: [id number] Room: [address] [place] [address] SSN: [id number] IMAGING SERVICES Ordering Prov: N/A Accession Number: [id number] Interpretation CT abdomen and pelvis with contrast 09/27/2007. History: Abdominal pain. Technique: Contiguous 5 mm enhanced images were obtained through the abdomen and pelvis. Findings: The lung bases are unremarkable. The liver, spleen, pancreas, adrenal glands and kidneys are unremarkable. A small amount of free fluid is noted in the pelvis. No intraperitoneal free air is seen. Several moderately dilated small bowel loops are visualized in the lower abdomen with air-fluid levels. A loop of distal ileum contains a large amount of fecal material. The terminal ileum is markedly thickened. Small amount of contrast is seen in the ascending colon. The colon is relatively collapsed. The urinary bladder is unremarkable. No retroperitoneal lymphadenopathy is seen. Impression: Several moderately dilated small bowel loops in the lower abdomen and pelvis with a loop of distal ileum containing large amount of fecal material. The terminal ileum is thickened which probably causes partial small bowel obstruction. . Dictated by: ASHLEY LAZCANO 09/27/2007 07:42 Electronically signed by: ASHLEY LAZCANO 09/27/2007 07:49 Procedure Note Ashley Lazcano - 09/27/2007 [facility] [address] [place], [place] [address] Admit Date: 09/27/2007 LINNEA MARTINEZ Imelda Sex: F Admit Prov: ER, AUTHORIZED P Date: 1975 Primary Care Prov: PCP , NONE CMRN: [id number] Room: [address] [place] [address] SSN: [id number] IMAGING SERVICES Ordering Prov: N/A Interpretation CT abdomen and pelvis with contrast 09/27/2007. History: Abdominal pain. Technique: Contiguous 5 mm enhanced images were obtained throughthe abdomen and pelvis. Findings: The lung bases are unremarkable. The liver, spleen,pancreas, adrenal glands and kidneys are unremarkable. A small amount of freefluid is noted in the pelvis. No intraperitoneal free air is seen.Several moderately dilated small bowel loops are visualized in the lowerabdomen with air-fluid levels. A loop of distal ileum contains a large amountof fecal material. The terminal ileum is markedly thickened. Smallamount of contrast is seen in the ascending colon. The colon is relativelycollapsed. The urinary bladder is unremarkable. No retroperitoneallymphadenopathy is seen. Impression: Several moderately dilated small bowel loops in the lower abdomenand pelvis with a loop of distal ileum containing large amount of fecal material. The terminal ileum is thickened which probably causespartial small bowel obstruction. . Dictated by: ASHLEY LAZCANO 09/27/2007 07:42 Electronically signed by: ASHLEY LAZCANO 09/27/2007 07:49 us Silvana Pearce MD CT ORDERABLES Final Result * HCG QUANTITATIVE, BLOOD (09/27/2007 1:01 AM CDT) HCG QUANT, BLOOD <5 0 - 5 mIU/mL [facility] Comment: Result of 5 - 25 mIU/mL is indeterminant for , repeat of test recommemded in 48 hours. Reference Range: Gestational Age: 3 Weeks 5.8 - 71.2 mIU/mL 4 Weeks 9.5 - 750 mIU/mL 5 Weeks 217 - 7138 mIU/mL 6 Weeks 158 - 31,795 mIU/mL 7 Weeks 3697 - 163,563 mIU/mL 8 Weeks 32,065 - 149,571 mIU/mL 9 Weeks 63,803 - 151,410 mIU/mL 10 Weeks 46,509 - 186,977 mIU/mL 12 Weeks 27,832 - 210,612 mIU/mL 14 Weeks 13,950 - 62,530 mIU/mL 15 Weeks 12,039 - 70,971 mIU/mL 16 Weeks 9040 - 56,451 mIU/mL 17 Weeks 8175 - 55,868 mIU/mL 18 Weeks 8099 - 58,176 mIU/mL Heterophile antibodies and other interfering substances in the serum of some patients may cause a false-positive result in this assay. Before making a diagnosis of malignancy or ectopic ,the result of this test should be confirmed with a urine HCG test and correlated with other clinical evidence. Blood specimen (specimen) 09/27/2007 1:01 AM CDT 09/27/2007 1:05 AM CDT us Silvana Pearce MD CHEMISTRY ORDERABLES Edited [facility] [address] [facility] [place] [address] * C-REACTIVE PROTEIN (09/27/2007 1:01 AM CDT) CRP 0.3 0.0 - 0.8 mg/dL [facility] Blood specimen (specimen) 09/27/2007 1:01 AM CDT 09/27/2007 1:05 AM CDT us Silvana Pearce MD CHEMISTRY ORDERABLES Final Res ult [facility] [address] [place] [address] * (ABNORMAL) COMPREHENSIVE METABOLIC PANEL (09/27/2007 1:01 AM CDT) SODIUM 141 135 - 145 mmol/L [facility] ALKALINE PHOSPHATASE 114(H) 35 - 104 U/L [facility] BILIRUBIN TOTAL 0.4 0.2 - 1.0 mg/dL [facility] CO2 24 22 - 30 mmol/L [facility] TOTAL PROTEIN 7.6 6.3 - 8.6 g/dL [facility] POTASSIUM 3.3(L) 3.5 - 4.9 mmol/L [facility] GLUCOSE 135(H) 65 - 99 mg/dL [facility] AST 21 12 - 32 U/L [facility] BUN 11 6 - 20 mg/dL [facility] CALCIUM 9.2 8.4 - 10.2 mg/dL [facility] ALBUMIN 4.6 3.4 - 4.8 g/dL [facility] CHLORIDE 105 96 - 108 mmol/L [facility] CREATININE 0.73 0.51 - 0.95 mg/dL [facility] ALT 23 0 - 31 U/L [facility] GFR, >60 >=60 mL/min/1. 7 sq meter [facility] GFR >60 >=60 mL/min/1. 7 sq meter [facility] Comment: Estimated GFR rate interpretative information for both Americans and non- Americans is available on the [facility] Intranet at: [email or web address] Select: Lab Policies and Procedures Select: Reference Ranges - GFR Blood specimen (specimen) 09/27/2007 1:01 AM CDT 09/27/2007 1:05 AM CDT us Silvana Pearce MD CHEMISTRY ORDERABLES Edited [facility] [address] [place] [address] * (ABNORMAL) CBC WITH DIFFERENTIAL (09/27/2007 1:01 AM CDT) HEMOGLOBIN 14.1 11.8 - 14.8 g/dL [facility] RDW 12.3 11.5 - 14.5 % [facility] WBC 11.4(H) 4.0 - 9.8 K/uL [facility] MCH 32.3 27.2 - 32.6 pg [facility] MPV 11.6 9.3 - 12.4 fL [facility] HEMATOCRIT 40.1 35.5 - 44.0 % [facility] RDW-STDEV 41.4 37.1 - 48.7 fL [facility] RBC 4.36 3.90 - 4.90 M/uL [facility] MCHC 35.2 31.5 - 35.5 % [facility] MCV 92.0 82.0 - 99.0 fL [facility] PLATELETS 259 140 - 350 K/uL [facility] LYMPHOCYTES 7(L) 16 - 45 % [facility] LYMPHOCYTE ABSOLUTE 0.84 0.70 - 4.50 K/uL [facility] BASOPHILS 0 0 - 2 % [facility] BASOPHILS ABSOLUTE 0.02 0.00 - 0.20 K/uL [facility] MONOCYTES 5 3 - 13 % [facility] MONOCYTE ABSOLUTE 0.61 0.10 - 1.30 K/uL [facility] NEUTROPHILS 87(H) 45 - 70 % [facility] NEUTROPHIL ABSOLUTE 9.92(H) 1.90 - 7.00 K/uL [facility] EOSINOPHILS 0 0 - 7 % [facility] EOSINOPHIL ABSOLUTE 0.04 0.00 - 0.70 K/uL [facility] Blood specimen (specimen) 09/27/2007 1:01 AM CDT 09/27/2007 1:05 AM CDT us Silvana Pearce MD HEMATOLOGY ORDERABLES Edited INTERFACE SYSTEM Refer to clinic/hospital department [facility] [address] [place] [address] documented in this encounter Visit Diagnoses Diagnosis Abdominal pain, unspecified site documented in this encounter Care Teams Charter Pilot Relationship Specialty Start Date End Date Gómez Raymundo MD [address] [place] [address] PCP - General 11/17/00 documented as of this encounter
--- OUTSIDE RECORDS SUMMARY | 2024-07-28 14:50 | XMS_ITS | Encounter Summary ---
Author Organization [employer] Address [address] [place] [address] Care Team Providers Care Space Studies Faculty Member Name Role Phone Gómez Raymundo MD Primary Care Provider +1- [phone] Encounter Details Date Type Department Care Team (Late st Contact Info) Description 10/26/2005 Outpatient Historical Division of Neurology 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
--- OUTSIDE RECORDS SUMMARY | 2024-07-28 14:50 | XMS_ITS | Encounter Summary ---
Author Organization [employer] Address [address] [place] [address] Care Team Providers Care Battery Builder Name Role Phone Gómez Raymundo MD Primary Care Provider +1- [phone] Encounter Details Date Type Department Care Team (Late st Contact Info) Description 10/31/2004 Outpatient Historical Division of Neurology 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
--- OUTSIDE RECORDS SUMMARY | 2024-07-28 14:50 | XMS_ITS | Encounter Summary ---
Author Organization [employer] Address 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
--- OUTSIDE RECORDS SUMMARY | 2024-07-28 14:50 | XMS_ITS | Encounter Summary ---
Author Organization [employer] Address [address] [place] [address] Care Team Providers Care Endless Bed Drum Sander Name Role Phone Gómez Raymundo MD Primary Care Provider +1- [phone] Encounter Details Date Type Department Care Team (Late st Contact Info) Description 10/08/2001 Outpatient Historical [facility] MRI DEPT Caden Suarez MD [address] [facility] [address] [place] [phone] FOLLOW-UP EXAM NEC (Primary Dx) Social History Tobacco Use Types Packs/Day Years Used Date Smoking Tobacco: Never Assessed Comments Unknown Sex and Gender Information Value Date Recorded Sex Assigned at Not on file Legal Sex Female 3:35 AM RELAY SHOP SUPERVISOR Gender Identity Not on file Sexual Orientation Not on file documented as of this encounter Plan of Treatment Not on file documented as of this encounter Visit Diagnoses Diagnosis Other follow-up examination(V67.59)- Primary Other follow-up examination documented in this encounter Care Teams Endless Bed Drum Sander Relationship Specialty Start Date End Date Gómez Raymundo MD [address] [facility] [address] [place] [address] PCP - General 11/17/00 documented as of this encounter
--- OUTSIDE RECORDS SUMMARY | 2024-07-28 14:50 | XMS_ITS | Encounter Summary ---
Author Organization [employer] Address [address] [place] [address] Care Team Providers Care Editor & Co Founder Name Role Phone Gómez Raymundo MD Primary Care Provider +1- [phone] Encounter Details Date Type Department Care Team (Late st Contact Info) Description 02/21/2007 Outpatient Historical Division of Neurology [address] [address] Caden Suarez MD [address] [facility] [address] [place] [address] Social History Tobacco Use Types Packs/Day Years Used Date Smoking Tobacco: Never Assessed Comments Unknown Sex and Gender Information Value Date Recorded Sex Assigned at Not on file Legal Sex Female 3:35 AM APPEALS REPRESENTATIVE Gender Identity Not on file Sexual Orientation Not on file documented as of this encounter Plan of Treatment Not on file documented as of this encounter Visit Diagnoses Not on filedocumented in this encounter Care Teams Editor & Co Founder Relationship Specialty Start Date End Date Gómez Raymundo MD [address] [place] [address] [address] [place] [address] PCP - General 11/17/00 documented as of this encounter
--- OUTSIDE RECORDS SUMMARY | 2024-07-28 14:50 | XMS_ITS | Encounter Summary ---
Author Organization [facility] Address [address] [place] [address] Care Team Providers Care Oncology Nurse Navigator Name Role Phone Terese Garcia MD Primary Care Provider Kt Carmona MD Unavailable [phone] Sa[address] MD Unavailable [phone] Reason for Visit * Reason Onset Date Comments Flu Symptoms 07/28/2024 Cough 07/28/2024 Encounter Details Date Type Department Care Team (Late st Contact Info) Description 07/28/2024 Nurse Triage [facility] Primary Care [address] [place] [phone] Terese Garcia MD [address] [place] [address] Social History Tobacco Use Types Packs/Day Years Used Date Smoking Tobacco: Never Passive Smoke Exposure: Never Smokeless Tobacco: Never Alcohol Use Standard Drinks/Week Comments Yes 0 (1 standard drink = 0.6 oz pur e alcohol) OASIS D0700: Social Isolation Answer Da te Recorded Frequency of experiencing loneliness or isolatio n Never 01/31/2024 [facility] Utilities Answer Date Recorded In the past 12 months has emotion.me electric, gas, oil, or water company threatened [...] place to sleep or slept in a long term (including now)? No 07/17/2023 Personal Safety Answer Date Recorded Have you ever been in or are you currently in a harmful physical or emotional relationship or is someone making you feel afraid or unsafe? Denies 01/18/2024 Comments No Sex and Gender Information Value Date Recorded Sex Assigned at Not on file Legal Sex Female 4:53 PM JIG OPERATOR Gender Identity Female 12/08/2020 2:25 PM CDT Sexual Orientation Straight 12/08/2020 2: 25 PM CDT documented as of this encounter Miscellaneous Notes * Telephone Encounter - Zahra Vernon RN - 07/28/2024 12:05 PM CST Pt ws seen in the office on 07/18 Dx Flu A. Seen in [facility] on 07/26 for Bronchitis. cough, Lower rsp infection. Tx with 2 antibiotics and prednisone. Pt still reports bad coughing fits. Coughing frequently throughout call. Pt can not talk with out coughing. Pt can tell she is still congested in her head and chest. Pt has some coughing fits that make it hard to breath. Movement also makes her cough. Pt has an albuterol inhaler and uses it every 4hours. Pt denies fevers. Pt did just get her Crohn's infusion on 07/15. Pt feels SOB and dizzy with the coughing. Provider contacted via secure chat for ED disposition consult. Recommendation from provider:Proceedto ED Pt agreeable to ED. Pt advised to call back for any further concerns. Reason for Disposition Patient sounds very sick or weak to the triager Protocols used: Influenza (Flu) - Iyaeydgl-Gfzdk-UF OPERATOR * Telephone Encounter - Zahra Vernon RN - 07/28/2024 11:54 AM CST Regarding: cough, shortness of breath, patient is positive for Flu and bronchitis ----- Message from Agatha Story sent at 07/28/2024 11:50 AM JIG OPERATOR ----- Symptom Based Call Chief Complaint(s): cough, shortness of breath, patient is positive for Flu and bronchitis Duration: about a week and a half What type of symptom(s) is the patient experiencing? Red Flag. Is the patient concerned they are experiencing a medical emergency requiring an ambulance? No Additional Comments: patient was seen at the [facility] on Sunday, she has the flu and bronchitis. She said her cough is not getting better and she is coughing so much she is getting short of breath, if she talks to much or does anything she starts having a coughing fit. Does message need to be routed? Yes-Action Needed OPERATOR documented in this encounter Plan of Treatment Not on file documented as of this encounter Visit Diagnoses Not on filedocumented in this encounter Care Teams Oncology Nurse Navigator Relationship Specialty Start Date End Date Terese Garcia MD PCP - General Internal Medicine 04/03/19 Kt Carmona MD Consulting Physician Colon and Rectal Surgery 07/20/23 [place] Saenz MD [address] [facility] [address] [place] [address] Consulting Physician Gastroenterology 07/20/23 documented as of this encounter
--- OUTSIDE RECORDS SUMMARY | 2024-07-28 14:50 | XMS_ITS | Encounter Summary ---
Author Organization [employer] Address [address] [place] [address] Care Team Providers Care Waiter/Waitress Third Class Name Role Phone Gómez Raymundo MD Primary Care Provider [phone]- [phone] Encounter Details Date Type Department Care Team (Late st Contact Info) Description 12/24/2006 Outpatient Historical [facility] GI [facility] Marco Antonio Becerra MD [address] [place] [address] [address] [place] [phone] Heartburn (Primary Dx) Social History Tobacco Use Types Packs/Day Years Used Date Smoking Tobacco: Never Assessed Comments Unknown Sex and Gender Information Value Date Recorded Sex Assigned at Not on file Legal Sex Female 3:35 AM TETRYL DISSOLVER OPERATOR Gender Identity Not on file Sexual Orientation Not on file documented as of this encounter Plan of Treatment Not on file documented as of this encounter Visit Diagnoses Diagnosis Heartburn- Primary documented in this encounter Care Teams Waiter/Waitress Third Class Relationship Specialty Start Date End Date Gómez Raymundo MD [address] [place] [address] [address] [place] [address] PCP - General 11/17/00 documented as of this encounter
--- OUTSIDE RECORDS SUMMARY | 2024-07-28 14:50 | XMS_ITS | Encounter Summary ---
Author Organization [employer] Address [address] [place] [address] Care Team Providers Care Gas Technician Name Role Phone Gómez Raymundo MD Primary Care Provider [phone]- [phone] Encounter Details Date Type Department Care Team (Late st Contact Info) Description 04/13/1999 Outpatient Historical Division of Neurology [address] [address] Caden Suarez MD [address] [facility] [address] [place] [address] Social History Tobacco Use Types Packs/Day Years Used Date Smoking Tobacco: Never Assessed Comments Unknown Sex and Gender Information Value Date Recorded Sex Assigned at Not on file Legal Sex Female 3:35 AM PROPOSAL EDITOR Gender Identity Not on file Sexual Orientation Not on file documented as of this encounter Plan of Treatment Not on file documented as of this encounter Visit Diagnoses Not on filedocumented in this encounter Care Teams Gas Technician Relationship Specialty Start Date End Date Gómez Raymundo MD [address] [place] [address] [address] [place] [address] PCP - General 11/17/00 documented as of this encounter
--- OUTSIDE RECORDS SUMMARY | 2024-07-28 14:50 | XMS_ITS | Encounter Summary ---
Author Organization [employer] Address [address] [place] [address] Care Team Providers Care Wet Room Worker Name Role Phone Gómez Raymundo MD Primary Care Provider [phone]- [phone] Encounter Details Date Type Department Care Team (Late st Contact Info) Description 12/27/1999 Outpatient Historical HIS MRI DEPT Caden Suarez MD [address] [facility] [address] [place] [address] Disorder of bone and cartilage, unspecified (Primary Dx) Social History Tobacco Use Types Packs/Day Years Used Date Smoking Tobacco: Never Assessed Comments Unknown Sex and Gender Information Value Date Recorded Sex Assigned at Not on file Legal Sex Female 3:35 AM BUS PERSON DISHWASHER Gender Identity Not on file Sexual Orientation Not on file documented as of this encounter Plan of Treatment Not on file documented as of this encounter Visit Diagnoses Diagnosis Disorder of bone and cartilage, unspecified- Primary documented in this encounter Care Teams Wet Room Worker Relationship Specialty Start Date End Date Gómez Raymundo MD [address] [facility] [address] [place] [address] PCP - General 11/17/00 documented as of this encounter
--- OUTSIDE RECORDS SUMMARY | 2024-07-28 14:50 | XMS_ITS | Encounter Summary ---
Author Organization [employer] Address [address] [place] [address] Care Team Providers Care Internal Communications Intern Name Role Phone Gómez Raymundo MD Primary Care Provider +1- [phone] Encounter Details Date Type Department Care Team (Late st Contact Info) Description 12/22/2003 Outpatient Historical [facility] GI LAB Marco Antonio Becerra MD [address] [place] [address] [address] [place] [phone] ANAL & RECTAL POLYP (Primary Dx) Social History Tobacco Use Types Packs/Day Years Used Date Smoking Tobacco: Never Assessed Comments Unknown Sex and Gender Information Value Date Recorded Sex Assigned at Not on file Legal Sex Female 3:35 AM TOXICOLOGIST Gender Identity Not on file Sexual Orientation Not on file documented as of this encounter Plan of Treatment Not on file documented as of this encounter Visit Diagnoses Diagnosis Anal and rectal polyp- Primary documented in this encounter Care Teams Internal Communications Intern Relationship Specialty Start Date End Date Gómez Raymundo MD [address] [place] [address] [address] [place] [address] PCP - General 11/17/00 documented as of this encounter
--- OUTSIDE RECORDS SUMMARY | 2024-07-28 14:50 | XMS_ITS | Encounter Summary ---
Author Organization [employer] Address [address] [place] [address] Care Team Providers Care Residential Insurance Inspector Name Role Phone Gómez Raymundo MD Primary Care Provider [phone]- [phone] Encounter Details Date Type Department Care Team (Late st Contact Info) Description 04/27/1999 Outpatient Historical HIS MRI DEPT Gómez Raymundo MD [address] [place] [phone] Other convulsions (CMS/HCC) (Primary Dx) Social History Tobacco Use Types Packs/Day Years Used Date Smoking Tobacco: Never Assessed Comments Unknown Sex and Gender Information Value Date Recorded Sex Assigned at Not on file Legal Sex Female 3:35 AM HAND VIOLIN MAKER Gender Identity Not on file Sexual Orientation Not on file documented as of this encounter Plan of Treatment Not on file documented as of this encounter Visit Diagnoses Diagnosis Other convulsions (CMS/HCC)- Primary Other convulsions documented in this encounter Care Teams Residential Insurance Inspector Relationship Specialty Start Date End Date Gómez Raymundo MD [address] [place] [phone] PCP - General 11/17/00 documented as of this encounter
--- OUTSIDE RECORDS SUMMARY | 2024-07-28 14:50 | XMS_ITS | Encounter Summary ---
Author Organization [facility] Address [address] [place] [address] Care Team Providers Care Estimating Engineer Name Role Phone Terese Garcia MD Primary Care Provider Kt Carmona MD Unavailable [phone] West Saenz MD Unavailable [phone] Encounter Details Date Type Department Care Team (Late st Contact Info) Description 07/28/2024 1:35 PM REPEATER OPERATOR - 07/28/2024 2:40 PM [facility] Emergency Department [address] [place] [id number] Discharge Disposition: Left without being seen Social History Tobacco Use Types Packs/Day Years Used Date Smoking Tobacco: Never Passive Smoke Exposure: Never Smokeless Tobacco: Never Alcohol Use Standard Drinks/Week Comments Yes 0 (1 standard drink = 0.6 oz pur e alcohol) OASIS D0700: Social Isolation Answer Da te Recorded Frequency of experiencing loneliness or isolatio n Never 01/31/2024 [facility] Utilities Answer Date Recorded In the past 12 months has [employer], gas, oil, or water [employer] threatened to shut off services in your [...] No 07/17/2023 Housing Stability Vital Sign Answer Adlofo e Recorded In the last 12 months, [...] place to sleep or slept in a penitentiary (including now)? No 07/17/2023 Personal Safety Answer Date Recorded Have you ever been in or are you currently in a harmful physical or emotional relationship or is someone making you feel afraid or unsafe? Denies 01/18/2024 Comments No Sex and Gender Information Value Date Recorded Sex Assigned at Not on file Legal Sex Female 4:53 PM REPEATER OPERATOR Gender Identity Female 12/08/2020 2:25 PM CDT Sexual Orientation Straight 12/08/2020 2: 25 PM CDT documented as of this encounter Medications at Time of Discharge acetaminophen (TYLENOL) 325 mg tabletIndications:i nfusion reaction prophylaxis Take 2 tablets (650 mg total) by mouth contract clerk automobile Please provide 650mg of acetaminophen by mouth 30 minutes prior to Inflectra infusion. 4 albuterol HFA (ProAir HFA) 90 mcg/actuation inhaler Inhale 2 puffs every 4 (four) hours as needed for shortness of breath or wheezing 1 each 4 5 07/18/19 26 amoxicillin-clavula robert (Augmentin) 875-125 mg per tablet Take 1 tablet by mouth 2 (two) times a day for 7 days 14 tablet 5 08/02/19 25 azithromycin (ZITHROMAX) 250 mg tablet Take 2 tabs (500 mg) by mouth today, than 1 tab (250 mg) daily for 4 days. 6 tablet 5 07/31/19 25 benzonatate (TESSALON) 100 mg capsuleIndications: Cough Take 1 capsule (100 mg total) by mouth 3 (three) times a day as needed for cough 42 capsule 5 calcium carbonate-vitamin D3 (CALTRATE 600 + D) 600 mg (1,500 mg)-800 unit tablet,chewableIndi cations:Vitamin D Deficiency take as directed 0 0 5 carBAMazepine ER (CARBATROL) 300 mg 12 hr capsule Take 1 capsule (300 mg total) by mouth 2 (two) times a day cyanocobalamin (Vitamin B-12) 1,000 mcg tabletIndications:P revention of Vitamin B12 Deficiency Take 1 tablet (1,000 mcg total) by mouth daily diphenhydrAMINE 25 mg capsuleIndications: PREMED Take 1 tablet/capsule (25 mg total) by mouth contract clerk automobile Please provide 25mg of diphenhydramine by mouth 30 minutes prior to Inflectra infusion. 4 folic acid (FOLVITE) 400 mcg tabletIndications:F olate Deficiency take 1 tablet by oral route every day 0 0 5 hydroCHLOROthiazide (HYDRODIURIL) 25 mg tablet Take 1 tablet by mouth once daily 90 tablet 4 inFLIXimab-dyyb (Inflectra) 100 mg injectionIndication s:Crohn's Disease Infuse 40 mL (400 mg total) into a venous catheter every 8 (eight) weeks 5 mg/kg dose. Site of Care: [facility] ([facility] order in Epic under 'Procedures' tab). inhalational spacing device (Aerochamber MV) spacer Pt to use with albuterol inhaler 1 each 5 ondansetron ODT (ZOFRAN-ODT) 8 mg disintegrating tablet Take 1 tablet (8 mg total) by mouth every 8 (eight) hours as needed for nausea or vomiting 20 tablet 3 5 predniSONE (DELTASONE) 20 mg tablet Take 2 tablets (40 mg) by mouth daily for 5 days Take with food 10 tablet 5 07/31/19 25 documented as of this encounter Discharge Disposition Disposition Code Departure Means Destination Left without being seen documented in this encounter Plan of Treatment Not on file documented as of this encounter Visit Diagnoses Not on filedocumented in this encounter Care Teams Estimating Engineer Relationship Specialty Start Date End Date Terese Garcia MD PCP - General Internal Medicine 04/03/19 Kt Carmona MD Consulting Physician Colon and Rectal Surgery 07/20/23 West Saenz MD [address] [facility] [place] [address] Consulting Physician Gastroenterology 07/20/23 documented as of this encounter
--- OUTSIDE RECORDS SUMMARY | 2024-07-28 14:50 | XMS_ITS | Encounter Summary ---
Author Organization [employer] Address [address] [place] [address] Care Team Providers Care Roll Mechanic Name Role Phone Gómez Raymundo MD Primary Care Provider [phone]- [phone] Encounter Details Date Type Department Care Team (Late st Contact Info) Description 11/06/2000 Outpatient Historical Division of Neurology [address] [address] Caden Suarez MD [address] [facility] [address] [place] [address] Social History Tobacco Use Types Packs/Day Years Used Date Smoking Tobacco: Never Assessed Comments Unknown Sex and Gender Information Value Date Recorded Sex Assigned at Not on file Legal Sex Female 3:35 AM PRISON GUARD SUPERVISOR Gender Identity Not on file Sexual Orientation Not on file documented as of this encounter Plan of Treatment Not on file documented as of this encounter Visit Diagnoses Not on filedocumented in this encounter Care Teams Roll Mechanic Relationship Specialty Start Date End Date Gómez Raymundo MD [address] [place] [address] [address] [place] [address] PCP - General 11/17/00 documented as of this encounter
--- OUTSIDE RECORDS SUMMARY | 2024-07-28 14:50 | XMS_ITS | Encounter Summary ---
Author Organization [employer] Address [address] [place] [address] Care Team Providers Care Ditch Digger Name Role Phone Gómez Raymundo MD Primary Care Provider [phone]- [phone] Encounter Details Date Type Department Care Team (Late st Contact Info) Description 04/27/1999 Outpatient Historical Division of Neurology [address] [address] Caden Suarez MD [address] [facility] [address] [place] [address] Social History Tobacco Use Types Packs/Day Years Used Date Smoking Tobacco: Never Assessed Comments Unknown Sex and Gender Information Value Date Recorded Sex Assigned at Not on file Legal Sex Female 3:35 AM ELECTRIC STOVE MECHANIC Gender Identity Not on file Sexual Orientation Not on file documented as of this encounter Plan of Treatment Not on file documented as of this encounter Visit Diagnoses Not on filedocumented in this encounter Care Teams Ditch Digger Relationship Specialty Start Date End Date Gómez Raymundo MD [address] [place] [address] [address] [place] [address] PCP - General 11/17/00 documented as of this encounter
--- OUTSIDE RECORDS SUMMARY | 2024-07-28 14:50 | XMS_ITS | Encounter Summary ---
Author Organization [employer] Address [address] [place] [address] Care Team Providers Care Product Introduction Manager Name Role Phone Gómez Raymundo MD Primary Care Provider [phone]- [phone] Encounter Details Date Type Department Care Team (Late st Contact Info) Description 12/24/2003 Outpatient Historical [facility] IMG-HOSP Marco Antonio Becerra MD [address] [place] [address] [address] [place] [phone] ABNORMAL FINDINGS-GI TRACT (Primary Dx) Social History Tobacco Use Types Packs/Day Years Used Date Smoking Tobacco: Never Assessed Comments Unknown Sex and Gender Information Value Date Recorded Sex Assigned at Not on file Legal Sex Female 3:35 AM OWNER/OPERATOR Gender Identity Not on file Sexual Orientation Not on file documented as of this encounter Plan of Treatment Not on file documented as of this encounter Visit Diagnoses Diagnosis Nonspecific (abnormal) findings on radiological and other examination of gastrointestinal tract- Primary documented in this encounter Care Teams Product Introduction Manager Relationship Specialty Start Date End Date Gómez Raymundo MD [address] [place] [address] PCP - General 11/17/00 documented as of this encounter
--- OUTSIDE RECORDS SUMMARY | 2024-07-28 14:50 | XMS_ITS | Encounter Summary ---
Author Organization [employer] Address [address] [place] [address] Care Team Providers Care Financial Accountant Name Role Phone Gómez Raymundo MD Primary Care Provider +1- [phone] Encounter Details Date Type Department Care Team (Late st Contact Info) Description 10/14/2004 Outpatient Historical HIS MRI DEPT Caden Suarez MD [address] [facility] [address] [place] [phone] BRAIN CONDITIONS NEC (Primary Dx) Social History Tobacco Use Types Packs/Day Years Used Date Smoking Tobacco: Never Assessed Comments Unknown Sex and Gender Information Value Date Recorded Sex Assigned at Not on file Legal Sex Female 3:35 AM SCIENCE PROFESSOR Gender Identity Not on file Sexual Orientation Not on file documented as of this encounter Plan of Treatment Not on file documented as of this encounter Visit Diagnoses Diagnosis Brain conditions NEC- Primary Other conditions of brain documented in this encounter Care Teams Financial Accountant Relationship Specialty Start Date End Date Gómez Raymundo MD [address] [facility] [address] [place] [address] PCP - General 11/17/00 documented as of this encounter
--- OUTSIDE RECORDS SUMMARY | 2024-07-28 14:50 | XMS_ITS | Encounter Summary ---
Author Organization [employer] Address [address] [place] [address] Care Team Providers Care Robotype Operator Name Role Phone Gómez Raymundo MD Primary Care Provider +1- [phone] Encounter Details Date Type Department Care Team (Late st Contact Info) Description 11/17/2000 Outpatient Historical HIS MRI DEPT Caden Suarez MD [address] [facility] [address] [place] [phone] Benign neoplasm of brain (CMS/HCC) (Primary Dx) Social History Tobacco Use Types Packs/Day Years Used Date Smoking Tobacco: Never Assessed Comments Unknown Sex and Gender Information Value Date Recorded Sex Assigned at Not on file Legal Sex Female 3:35 AM CLAIM PROFESSIONAL Gender Identity Not on file Sexual Orientation Not on file documented as of this encounter Plan of Treatment Not on file documented as of this encounter Visit Diagnoses Diagnosis Benign neoplasm of brain (CMS/HCC)- Primary Benign neoplasm of brain documented in this encounter Care Teams Robotype Operator Relationship Specialty Start Date End Date Gómez Raymundo MD [address] [facility] [address] [place] [address] PCP - General 11/17/00 documented as of this encounter
--- OUTSIDE RECORDS SUMMARY | 2024-07-28 14:50 | XMS_ITS | Encounter Summary ---
Author Organization [employer] Address [address] [place] [address] Care Team Providers Care Marketing Pr Intern Name Role Phone Gómez Raymundo MD Primary Care Provider +1- [phone] Encounter Details Date Type Department Care Team (Late st Contact Info) Description 03/07/2002 Outpatient Historical Division of Neurology [address] [address] Caden Suarez MD [address] [facility] [address] [place] [address] Social History Tobacco Use Types Packs/Day Years Used Date Smoking Tobacco: Never Assessed Comments Unknown Sex and Gender Information Value Date Recorded Sex Assigned at Not on file Legal Sex Female 3:35 AM BUFFING WHEEL RAKER Gender Identity Not on file Sexual Orientation Not on file documented as of this encounter Plan of Treatment Not on file documented as of this encounter Visit Diagnoses Not on filedocumented in this encounter Care Teams Marketing Pr Intern Relationship Specialty Start Date End Date Gómez Raymundo MD [address] [place] [address] [address] [place] [address] PCP - General 11/17/00 documented as of this encounter
--- OUTSIDE RECORDS SUMMARY | 2024-07-28 14:50 | XMS_ITS | Encounter Summary ---
Author Organization [facility] Address [address] [place] [address] Care Team Providers Care Rv Repair Technician Name Role Phone Gómez Raymundo MD Primary Care Provider +1- [phone] Encounter Details Date Type Department Care Team (Late st Contact Info) Description 11/08/2007 Outpatient Historical HIS IMG-HOSP Remigio Becerra MD [address] [place] [address] [place] [address] Regional Enteritis of Small Intestine (CMS/HCC) Social History Tobacco Use Types Packs/Day Years Used Date Smoking Tobacco: Never Assessed Comments Unknown Sex and Gender Information Value Date Recorded Sex Assigned at Not on file Legal Sex Female 3:35 AM DIRECTOR SOFTWARE Gender Identity Not on file Sexual Orientation Not on file documented as of this encounter Plan of Treatment Not on file documented as of this encounter Procedures Procedure Name Priority Date/Time Associated Diagnosis Comments XR SMALL BOWEL Timed Study 11/08/2007 9:00 AM CDT documented in this encounter Results * XR SMALL BOWEL (11/08/2007 9:00 AM CDT) Anatomical Region Laterality Modality Abdomen Other 11/08/2007 9:00 AM CDT Narrative 11/10/2007 2:43 PM CDT [facility] [address] [place], [place] [address] Admit Date: 11/08/2007 JANE MARTINEZ Sex: F Admit Prov: REMIGIO BECERRA Date: 1975 Primary Care Prov: GÓMEZ RAYMUNDO CMRN: [id number] Room: [facility] SSN: [id number] IMAGING SERVICES Ordering Prov: N/A Accession Number: [id number] Interpretation SMALL BOWEL SERIES 11/08/2007 Clinical history: Crohn's disease, regional enteritis, right lower quadrant abdominal pain. A preliminary abdominal abrasive mixer helper radiograph is not remarkable. Following oral administration of barium a series of abdominal radiographs were obtained up to 60 minutes at which time definitive contrast is seen within the right colon. Except for the terminal segment of ileum the remainder of the small bowel appears normal. There is moderate inflammatory type change seen in the terminal 10 cm segment of distal ileum with intermittent spasticity and some moderate narrowing with inflammatory change containing some tiny areas of ulceration. There is very minimal segmental dilatation just proximal to the inflamed segment. There is mild localized mesenteric mass effect. There is no evidence of obstruction or fistulous tract or other specific finding. Impression: Approximately 10 cm segment of inflammatory change involving the terminal ileum consistent with persistent and/or recurrent regional enteritis as described above. No evidence of obstruction or fistulous tract. . Dictated by: DILMA MAYA 11/08/2007 11:43 Electronically signed by: DILMA MAYA 11/10/2007 14:43 Transcribed: 11/08/2007 15:04 Procedure Note Provider, Historical - 11/10/[address] [address] Admit Date: 11/08/2007 JANE MARTINEZ Sex: F Admit Prov: REMIGIO BECERRA Date: 1975 Primary Care Prov: GÓMEZ RAYMUNDO CMRN: [id number] Room: [facility] SSN: [id number] IMAGING SERVICES Ordering Prov: N/A Interpretation SMALL BOWEL SERIES 11/08/2007 Clinical history: Crohn's disease, regional enteritis, right lower quadrant abdominal pain. A preliminary abdominal abrasive mixer helper radiograph is not remarkable. Followingoral administration of barium a series of abdominal radiographs wereobtained up to 60 minutes at which time definitive contrast is seen within theright colon. Except for the terminal segment of ileum the remainder of thesmall bowel appears normal. There is moderate inflammatory type change seenin the terminal 10 cm segment of distal ileum with intermittentspasticity and some moderate narrowing with inflammatory change containing some tinyareas of ulceration. There is very minimal segmental dilatation justproximal to the inflamed segment. There is mild localized mesenteric mass effect.There is no evidence of obstruction or fistulous tract or other specificfinding. Impression: Approximately 10 cm segment of inflammatory change involving theterminal ileum consistent with persistent and/or recurrent regional enteritisas described above. No evidence of obstruction or fistulous tract. . Dictated by: DILMA MAYA 11/08/2007 11:43 Electronically signed by: DILMA MAYA 11/10/2007 14:43 Transcribed: 11/08/2007 15:04 us Remigio Becerra MD DIAGNOSTIC IMAGING ORDERABLE S Final Result documented in this encounter Visit Diagnoses Diagnosis Regional enteritis of small intestine (CMS/HCC) Regional enteritis of small intestine documented in this encounter Care Teams Rv Repair Technician Relationship Specialty Start Date End Date Gómez Raymundo MD [address] [place] [address] PCP - General 11/17/00 documented as of this encounter
--- OUTSIDE RECORDS SUMMARY | 2024-07-28 14:50 | XMS_ITS | Referral Summary ---
Author Organization [facility] [employer] Address [address] [place] [address] Care Team Providers Care Oversize Load Pilot Escort Name Role Phone Unavailable Primary Care Provider Unavailabl e Source Comments [facility] [employer],non-owned Affiliates and Associated Physician Practices is amultiple site organization consisting of ambulatory clinics and hospital sitesin [place], [place], [place] and [place]. This disclosure is being madepursuant to the Care Everywhere program and may not contain all information available regarding this patient. Last updated 18.[facility] [employer] Allergies Active Allergy Reactions Criticality Noted Date [...] AFLURIA QUADRIVALENT; 6MO+), 0.5 ML (IIV4) 04/15/2019 Social History Tobacco Use Types Packs/Day Years Used Date Smoking Tobacco: Never Smokeless Tobacco: Never Sex and Gender Information Value Date Recorded Sex Assigned at Not on file Gender Identity Not on file Sexual Orientation Not on file Last Filed Vital Signs Vital Sign Reading Time Taken Comments Blood Pressure 122/76 05/07/2018 4:56 PM JUDICIAL CLERK Pulse 61 05/07/2018 4:56 PM JUDICIAL CLERK Temperature 36.8 C (98.2 F) 05/07/2018 4:56 PM JUDICIAL CLERK Respiratory Rate 16 05/07/2018 4:56 PM JUDICIAL CLERK Oxygen Saturation 99% 05/07/2018 4:56 PM JUDICIAL CLERK Inhaled Oxygen Concentration - - Weight 67.1 kg (148 lb) 05/07/2018 4:56 PM JUDICIAL CLERK Height 165.1 cm (5' 5 ) 05/07/2018 4:56 PM JUDICIAL CLERK Body Mass Index 24.63 05/07/2018 4:56 PM JUDICIAL CLERK Plan of Treatment Not on file
--- OUTSIDE RECORDS SUMMARY | 2024-07-28 14:51 | XMS_ITS | Encounter Summary ---
Author Organization [facility] Address [address] [place] [address] Phone Care Team Providers Care Golf Course Keeper Name Role Phone Terese Garcia MD Primary Care Provider Kt Carmona MD Unavailable [phone] Saenz MD Unavailable [phone] Encounter Details Date Type Department Care Team (Late st Contact Info) Description 08/29/2017 Orders Only [facility] ProviderDarrell MD [address] [place] [id number] Social History Tobacco Use Types Packs/Day Years Used Date Smoking Tobacco: Never Alcohol Use Standard Drinks/Week Comments Yes 0 (1 standard drink = 0.6 oz pur e alcohol) Comments Unknown Sex and Gender Information Value Date Recorded Sex Assigned at Not on file Legal Sex Female 4:53 PM ROD POINTER Gender Identity Female 12/08/2020 2:25 PM CDT Sexual Orientation Straight 12/08/2020 2: 25 PM CDT documented as of this encounter Plan of Treatment Not on file documented as of this encounter Procedures Procedure Name Priority Date/Time Associated Diagnosis Comments DISCHARGE LABORATORY CUMULATIVE REPORT 08/29/2017 12:00 AM CDT documented in this encounter Results * DISCHARGE LABORATORY CUMULATIVE REPORT (08/29/2017 12:00 AM CDT) Narrative 08/29/2017 12:00 AM CDT Ordered by an unspecified provider. us Historical Provider LAB BLOOD ORDERABLES Anne l Result documented in this encounter Visit Diagnoses Not on filedocumented in this encounter Additional Health Concerns Infection Onset Date Last Indicated Resolved Time COVID: Suspected 07/09/2023 07/09/2023 07/10/2023 1:00 AM ROD POINTER COVID: Suspected 07/16/2023 07/16/2023 07/17/2023 3:17 AM ROD POINTER COVID: Suspected 04/15/2024 04/15/2024 04/15/2024 2:46 PM CDT COVID: Suspected 05/14/2024 05/14/2024 05/14/2024 3:05 PM ROD POINTER COVID: Suspected 07/18/2024 07/18/2024 07/18/2024 1:46 PM ROD POINTER Influenza, adult 07/18/2024 07/18/2024 07/25/2024 3:07 AM ROD POINTER documented as of this encounter Care Teams Golf Course Keeper Relationship Specialty Start Date End Date Terese Garcia MD PCP - General Internal Medicine 04/03/19 Kt Carmona MD Consulting Physician Colon and Rectal Surgery 07/20/23 [place] Saenz MD [address] [facility] [address] [place] [address] Consulting Physician Gastroenterology 07/20/23 documented as of this encounter
--- OUTSIDE RECORDS SUMMARY | 2024-07-28 14:51 | XMS_ITS | Referral Summary ---
Author Organization [facility] at the Medical Office Building Address [facility] [place] [address] Care Team Providers Care Tie Mill Operator Name Role Phone Terese Garcia MD Primary Care Provider Kt Carmona MD Unavailable [phone] [place] Saenz MD Unavailable [phone] Encounters Date Type Department Care Team Description 07/28/2024 1:35 PM CHILD CARE PROVIDER - 07/28/2024 2:40 PM [facility] Emergency [facility] Emergency Department [address] [place] [address] Discharge Disposition: Left without being seen 07/28/2024 Nurse Triage [facility] Care [address] [place] [phone] Terese Garcia MD 07/26/2024 11:00 AM CHILD CARE PROVIDER Office Visit [facility] Care at [address] [phone] Lj Bruce NP Acute lower respiratory infection (Primary Dx); Acute cough 07/18/2024 1:30 PM CHILD CARE PROVIDER Office Visit [facility] Care [address] [place] [phone] Mehochko, Lillie, SECOND HAND Acute cough (Primary Dx); Influenza A; Class 1 obesity due to excess calories with serious comorbidity and body mass index (BMI) of 31.0 to 31.9 in adult; Primary hypertension; Crohn's disease of small intestine without complication (CMS/HCC) (HCC); Nausea 07/15/2024 9:00 AM CHILD CARE PROVIDER Home Care Visit [place] [address] [address] [place] [address] Rubi Chaudhry RN SN INFUSION TREATMENT ROOM 06/17/2024 11:50 AM CHILD CARE PROVIDER - 06/17/2024 11:59 PM CHILD CARE PROVIDER Hospital Encounter [facility] [address] [place] [address] Lung nodule Discharge Disposition: Discharge to home or self care 06/03/[address] [facility] Gastroenterology [address] [place] [address] 12th [place] [address] [place] [address] Lillie Padilla LPN 06/02/2024 Orders Only [facility] [address] [place] [address] Anita Kelley NP PSC (primary sclerosing cholangitis) (Primary Dx) 06/02/2024 1:15 PM CHILD CARE PROVIDER - 06/02/2024 11:59 PM CHILD CARE PROVIDER Hospital Encounter [facility] [address] [place] [address] Elevated serum alkaline phosphatase level; PSC (primary sclerosing cholangitis) Discharge Disposition: Discharge to home or self care 05/28/2024 10:00 AM CHILD CARE PROVIDER Office Visit [facility] Gastroenterology [facility] Medical Office Building [address] [place] [phone] [place] Saenz MD High risk medications (not anticoagulants) long-term use (Primary Dx); PSC (primary sclerosing cholangitis); Crohn's disease of colon with intestinal obstruction (CMS/HCC) (HCC); Crohn's disease of small intestine with intestinal obstruction (CMS/HCC) (HCC) 05/22/[address] [facility] G[facility]enter[facility] [address] [place] [address] 12th [place] [address] [place] [address] Lillie Padilla LPN 05/22/2024 Orders Only [facility] [address] [place] [address] Anita Kelley NP PSC (primary sclerosing cholangitis) (Primary Dx) 05/19/2024 3:15 PM CHILD CARE PROVIDER Lab [facility] [address] [place] [address] PSC (primary sclerosing cholangitis) 05/19/2024 3:00 PM CHILD CARE PROVIDER Procedure visit [facility]enter[facility] [address] [place] [address] Medical Office Building [address], [address] [place] [phone] PSC (primary sclerosing cholangitis) 05/19/2024 2:40 PM CHILD CARE PROVIDER Office Visit [facility] [address] [place] [address] Medical Office Building [address], [address] [place] [phone] Anita Kelley NP PSC (primary sclerosing cholangitis) (Primary Dx) 05/16/2024 9:15 AM CHILD CARE PROVIDER - 05/16/2024 11:59 PM CHILD CARE PROVIDER Hospital Encounter [facility] [address] [place] [address] Discharge Disposition: Discharge to home or self care 05/16/2024 9:00 AM CHILD CARE PROVIDER Home Care Visit [place] [address] [address] [place] [address] Jett Gutierrez RN SN INFUSION TREATMENT ROOM 05/14/2024 2:30 PM CHILD CARE PROVIDER Office Visit [facility] Care at [address] [address] Lj Bruce NP Common cold (Primary Dx) 04/30/[address] [facility] Gastroenterology [address] [place] [address] Advanced Medicine 12th [place] [address] [place] [address] Camilla Ghotra CMA from Last 3 Months Allergies Active Allergy Reactions Criticality Noted Date Comments Chlorhexidine Gluconate Itching,Redness Low 024 Nyquil Urticaria Medium 01/02/2017 Patient states reaction occurred at at 16. Patient able to take other cough/cold mediations including Dayquil. Medications folic acid (FOLVITE) 400 mcg tabletIndications :Folate Deficiency take 1 tablet by oral route every day 0 0 Active calcium carbonate-vitamin D3 (CALTRATE 600 + [...] weeks 5 mg/kg dose. Site of Care: [facility] Home Care ([facility] order in [facility] under 'Procedures' tab). Active acetaminophen (TYLENOL) 325 mg tabletIndications :infusion reaction prophylaxis Take 2 tablets (650 mg total) by mouth blade boner Please provide 650mg of acetaminophen by mouth 30 minutes prior to Inflectra infusion. Active diphenhydrAMINE 25 mg capsuleIndication s:PREMED Take 1 tablet/capsule (25 mg total) by mouth blade boner Please provide 25mg of diphenhydramine by mouth 30 minutes prior to Inflectra infusion. Active carBAMazepine ER (CARBATROL) 300 mg 12 hr capsule Take 1 capsule (300 mg total) by mouth 2 (two) times a day Active hydroCHLOROthiazi de (HYDRODIURIL) 25 mg tablet Take 1 tablet by mouth once daily 90 tablet 024 Active ondansetron ODT (ZOFRAN-ODT) 8 mg disintegrating tablet Take 1 tablet (8 mg total) by mouth every 8 (eight) hours as needed for nausea or vomiting 20 tablet 3 025 Active Additional Information Patient not taking.Reported on 07/26/2024 albuterol HFA (ProAir HFA) 90 mcg/actuation inhaler Inhale 2 puffs every 4 (four) hours as needed for shortness of breath or wheezing 1 each 4 025 2025 Active benzonatate (TESSALON) 100 mg capsuleIndication s:Cough Take 1 capsule (100 mg total) by mouth 3 (three) times a day as needed for cough 42 capsule Active predniSONE (DELTASONE) 20 mg tablet Take 2 tablets (40 mg) by mouth daily for 5 days Take with food 10 tablet 025 2024 Active amoxicillin-clavu lanate (Augmentin) 875-125 mg [...] to use with albuterol inhaler 1 each Active sodium chloride 0.9% injectionIndicati ons:line care [...] 08/01/2023 Assessment & Plan (05/28/2024 10:19 AM CHILD CARE PROVIDER): All immunosuppressants increase the risk of infection [...] and in addition should follow with a polymerization kettle operator for skin cancer screening. There is a [...] and in addition should follow with a polymerization kettle operator for skin cancer screening. There is a small risk of heart failure so any new HF symptoms would prompt an evaluation and likely discontinuation of therapy. Assessment & Plan (08/01/2023 2:49 PM CHILD CARE PROVIDER): All immunosuppressants increase the risk of infection [...] and in addition should follow with a polymerization kettle operator for skin cancer screening. There is a small risk of heart failure so any new HF symptoms would prompt an evaluation and likely discontinuation of therapy. Healthcare maintenance 08/01/2023 Overview (08/01/2023): Immunizations: Influenza annual Pneumococcus recommend PCV 20 Zoster recommend HBV immune Covid vaccinated Cervical cancer screening: routine follow up with digitizer operator Skin cancer screening: consider referral to dermatology to discuss screening strategy Bone health: DEXA: osteopenia in 2020. Ocnt Ca and vit D CRC screening: annual d/t PSC Assessment & Plan (11/28/2023 10:18 AM CDT): PCV today Follows with bone health for osteopenia Assessment & Plan (08/01/2023 2:54 PM CHILD CARE PROVIDER): Annual c scope d/t psc Crohn's disease of colon wit h intestinal obstruction (CMS/HCC) 07/16/2023 Assessment & Plan (07/18/2023 1:02 PM CHILD CARE PROVIDER): D/w CRS today - will transfer to CRS service with plan for surgical treatment on Sunday - holding steroids per GI Klebsiella pneumoniae sepsis (CMS/HCC) Assessment & Plan (07/18/2023 1:02 PM CHILD CARE PROVIDER): Likely related to gut translocation in the setting of severe crohns inflammation and steroids - day 2 of abx; would treat for 7 days total based upon susceptibility data Fever 07/10/2023 Assessment & Plan (07/11/2023 11:18 AM CHILD CARE PROVIDER): -Febrile to 102F this admit -Infectious workup: [...] 07/09/2023 Assessment & Plan (05/28/2024 10:20 AM CHILD CARE PROVIDER): Needs annual c scope Assessment & Plan (05/19/2024 3:02 PM CHILD CARE PROVIDER): Ms. Martinez presents for follow up for [...] risk. Assessment & Plan (08/01/2023 2:50 PM CHILD CARE PROVIDER): Follows with liver. Needs annual c scope for dysplasia screening, though has not had colonic involvement. Assessment & Plan (07/10/2023 4:06 PM CHILD CARE PROVIDER): Patient has been getting worked up for elevated liver enzymes outpatient. 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 -continue to follow up outpatient with GI with recommendations for annual colonoscopy -follow-up with CRS and GI Hypertension 07/09/2023 Assessment & Plan (07/10/2023 4:07 PM CHILD CARE PROVIDER): On hydrochlorothiazide 25 mg daily Holding antihypertensive meds-BP stable without HCTZ for now Crohn's colitis, unspecified complication 2023 Assessment & Plan (07/11/2023 11:17 AM CHILD CARE PROVIDER): Patient was diagnosed with Crohn's in 2003. [...] elevated Assessment & Plan (05/21/2023 12:58 PM CHILD CARE PROVIDER): Mrs. Martinez presents for evaluation of elevated [...] remission Assessment & Plan (05/28/2024 9:13 PM CHILD CARE PROVIDER): Colonoscopy showed mucosal remission on infliximab. Continue [...] mos. Assessment & Plan (08/01/2023 2:49 PM CHILD CARE PROVIDER): Severe stricturing ileal Crohn's with multiple admissions [...] PSC Assessment & Plan (05/21/2023 1:40 PM CHILD CARE PROVIDER): Patient follows with Dr. Merchant (dx 2003). Her current regimen includes Infliximab infusion every 8 weeks, Sulfasalazine 1000 mg daily. Last colonoscopy was in 2020 which revealed tight TI stricture, not able to be traversed. She is scheduled to see SECOND HAND provider this month with transition of care to Dr. Messina. 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 Assessment & Plan (07/10/2023 4:06 PM CHILD CARE PROVIDER): Was diagnosed 22 years ago and started with seizures Is following up with Neurosurgery at [facility] Continue carbamazepine (liquid substituted for pills), pt tolerating well. Immunizations Name Administration Dates Next Due Influenza, Quadrivalent, Spl it, Intramuscular 03/18/2015 Influenza, Quadrivalent, Spl it, Preservative Free, Intramuscular 05/01/2022,04/15/2019 Influenza, Trivalent, IM (MDV) 03/18/2018,2007 Influenza, Unspecified 03/06/2024,2022,03/29/2021,03/22 Pfizer SARS-CoV-2 Monovalent Vaccination (12+ Yrs) PURPLE 06/25/2021,10/07/2020,09/16/2020 Pfizer SARS-CoV-2 Monovalent Vaccination (5-11 Yrs) 06/25/2021,10/07/2020,09/16/2020 Pneumococcal Conjugate Pcv20 11/28/2023 Tdap 09/07/2022,07/19/2015 Social History Tobacco Use Types Packs/Day Years Used Date Smoking Tobacco: Never Passive Smoke Exposure: Never Smokeless Tobacco: Never Tobacco Cessation:Counseling Given: Not Answered Alcohol Use Standard Drinks/Week Comments Yes 0 (1 standard drink = 0.6 oz pur e alcohol) OASIS D0700: Social Isolation Answer Da te Recorded Frequency of experiencing loneliness or isolatio n Never 01/31/2024 [facility] Utilities Answer Date Recorded In the past 12 months has [employer], gas, oil, or water [employer] threatened to shut off services in your [...] place to sleep or slept in a fpc (including now)? No 07/17/2023 Personal Safety Answer Date Recorded Have you ever been in or are you currently in a harmful physical or emotional relationship or is someone making you feel afraid or unsafe? Denies 01/18/2024 Comments No Sex and Gender Information Value Date Recorded Sex Assigned at Not on file Legal Sex Female 4:53 PM CHILD CARE PROVIDER Gender Identity Female 12/08/2020 2:25 PM CDT Sexual Orientation Straight 12/08/2020 2: 25 PM CDT Last Filed Vital Signs Vital Sign Reading Time Taken Comments Blood Pressure 150/88 07/26/2024 11:03 AM CHILD CARE PROVIDER Pulse 104 07/26/2024 11:15 AM CHILD CARE PROVIDER Temperature 36.6 C (97.8 F) 07/26/2024 11:03 AM CHILD CARE PROVIDER Respiratory Rate 20 07/26/2024 11:03 AM CHILD CARE PROVIDER Oxygen Saturation 95% 07/26/2024 11:15 AM CHILD CARE PROVIDER Inhaled Oxygen Concentration - - Weight 84.8 kg (187 lb) 07/26/2024 11:03 AM CHILD CARE PROVIDER Height 165.1 cm (5' 5 ) 07/18/2024 1:23 PM CHILD CARE PROVIDER Body Mass Index 31.12 07/18/2024 1:23 PM CHILD CARE PROVIDER Plan of Treatment Not on file Procedures Procedure Name Priority Date/Time Associated Diagnosis Comments POC INFLUENZA A/B, COVID-19 ANTIGEN Routine 07/18/2024 1:29 PM CHILD CARE PROVIDER Acute cough CT CHEST WO CONTRAST Schedule Routine, Read Routine (OP Routine) 06/17/2024 12:00 PM CHILD CARE PROVIDER Lung nodule MRI ABDOMEN MRCP W WO CONTRAST Schedule Routine, Read Routine (OP Routine) 06/02/2024 3:08 PM CHILD CARE PROVIDER Elevated serum alkaline phosphatase level PSC (primary sclerosing cholangitis) EGFR Routine 05/19/2024 3:33 PM CHILD CARE PROVIDER PSC (primary sclerosing cholangitis) DIFFERENTIAL AUTO Routine 05/19/2024 3:3 3 PM CHILD CARE PROVIDER PSC (primary sclerosing cholangitis) IGG Routine 05/19/2024 3:33 PM CHILD CARE PROVIDER PSC (primary sclerosing cholangitis) GAMMA GT Routine 05/19/2024 3:33 PM CHILD CARE PROVIDER PSC (primary sclerosing cholangitis) COMPREHENSIVE METABOLIC PANEL Routine 05/19/2024 3:33 PM CHILD CARE PROVIDER PSC (primary sclerosing cholangitis) CBC WITH AUTO DIFFERENTIAL Routine 05/19/2024 3:33 PM CHILD CARE PROVIDER PSC (primary sclerosing cholangitis) CANCER ANTIGEN 19-9 Routine 05/19/2024 3 :33 PM CHILD CARE PROVIDER PSC (primary sclerosing cholangitis) [id number], TUMOR MARKER Routine 05/19/2024 3:33 PM CHILD CARE PROVIDER PSC (primary sclerosing cholangitis) VITAMIN D 25 HYDROXY Routine 05/19/2024 3:33 PM CHILD CARE PROVIDER PSC (primary sclerosing cholangitis) VITAMIN A Routine 05/19/2024 3:33 PM CHILD CARE PROVIDER PSC (primary sclerosing cholangitis) VITAMIN E Routine 05/19/2024 3:33 PM CHILD CARE PROVIDER PSC (primary sclerosing cholangitis) LIVER ELASTOGRAPHY W/O IMAGING W/I&R Routine 05/19/2024 3:29 PM CHILD CARE PROVIDER PSC (primary sclerosing cholangitis) EGFR Routine 05/16/2024 9:15 AM CHILD CARE PROVIDER DIFFERENTIAL AUTO Routine 05/16/2024 9:1 5 AM CHILD CARE PROVIDER CRP (ACUTE PHASE) Routine 05/16/2024 9:1 5 AM CHILD CARE PROVIDER CBC WITH AUTO DIFFERENTIAL Routine 05/16/2024 9:15 AM CHILD CARE PROVIDER GLUCOSE, RANDOM (OUTREACH) Routine 05/16/2024 9:15 AM CHILD CARE PROVIDER COMPREHENSIVE METABOLIC PANEL WITHOUT GLUCOSE (OUTREACH) Routine 05/16/2024 9:15 AM CHILD CARE PROVIDER POC INFLUENZA A/B, COVID-19 ANTIGEN Routine 05/14/2024 3:04 PM CHILD CARE PROVIDER Common cold POCT RAPID STREP Routine 05/14/2024 2:53 PM CHILD CARE PROVIDER Common cold COLONOSCOPY 01/18/2024 7:48 AM CDT DIAGNOSTIC MAMMOGRAM BILATERAL W CHRITSIAN Schedule Routine, Read Routine (OP Routine) 01/09/2024 2:53 PM CDT History of abnormal mammogram Mass of left breast, unspecified quadrant HEPATITIS C ANTIBODY Routine 05/21/2023 10:28 AM CHILD CARE PROVIDER Elevated serum alkaline phosphatase level HM PAP SMEAR WITH HPV Routine 12/06/2022 from Last 3 Months or Most Recently Relevant to Health Maintenance Results * (ABNORMAL) POC Influenza A/B, COVID-19 antigen (07/18/2024 1:29 PM CHILD CARE PROVIDER) Influenza A Ag, POC Positive(A) Negative Influenza B Ag, POC Negative Negative COVID-19 Ag POC Presumptive Negative Presumptive Negative, Invalid Nasal 07/18/2024 1:29 PM CHILD CARE PROVIDER Lillie Mata NP POINT OF CARE TEST ORDERABLES Final Result * CT Chest WO Contrast (06/17/2024 12:00 PM CHILD CARE PROVIDER) Anatomical Region Laterality Modality Body N/A Computed Tomogra phy 06/22/2024 7:35 PM CHILD CARE PROVIDER Narrative 06/22/2024 7:39 PM CHILD CARE PROVIDER EXAM DESCRIPTION: CT CHEST WO CONTRAST REASON [...] Donna Poe M.D. FT: FT Report ID: [id number] Reading Location: [id number] Procedure Note Donna Camacho MD - 06/22/2024 [...] Donna Poe M.D. FT: FT Report ID: [id number] Reading Location: [id number] Lillie Mata NIKKO IM CT PROCEDURES Final Resul t * MRI Abdomen MRCP W WO Contrast (06/02/2024 3:08 PM CHILD CARE PROVIDER) Anatomical Region Laterality Modality Body N/A Magnetic Resonan ce 06/02/2024 3:45 PM CHILD CARE PROVIDER Impressions 06/02/2024 4:27 PM CHILD CARE PROVIDER Unchanged mild multifocal intrahepatic stricturing and dilatation compatible with primary sclerosing cholangitis. Dictated by: Arya Lorenzo MD The radiology attending physician has personally reviewed this study, and had reviewed and/or edited this written report and agrees with it. Electronically signed by: Johnathan Mcadams M.D. Narrative 06/02/2024 4:27 PM CHILD CARE PROVIDER EXAMINATION: 1. MAGNETIC RESONANCE IMAGING OF THE [...] by: Johnathan Mcadams M.D. Anita Kelley NP IMG MRI PROCEDURES Final R esult * eGFR (05/19/2024 3:33 PM CHILD CARE PROVIDER) eGFR >90 >=60 mL/min/1. 73 m2 Comment: [...] last reviewed 2021. Blood 05/19/2024 3:33 PM CHILD CARE PROVIDER 05/19/2024 3:59 PM CHILD CARE PROVIDER us Anita Ilgia Allie EL LAB BLOOD ORDERABLES Final Result JONATHAN GROSS [address] [facility]. Department [place] [address] * Differential, auto (05/19/2024 3:33 PM CHILD CARE PROVIDER) Neutrophil abs 3.3 1.5 - 6.5 K/cumm Imm gran abs 0.0 0.0 - 0.1 K/cumm [facility]ER [facility] Lymphocyte abs 2.7 0.8 - 3.3 K/cumm [facility] Monocyte abs 0.5 0.2 - 0.8 K/cumm [facility] Eosinophil abs 0.2 0.0 - 0.5 K/cumm [facility] Basophil abs 0.0 0.0 - 0.1 K/cumm [facility] Neutrophil pct 49.4 % CERKIRSTEN VILLASEÑOR Comment: Interpretive Data Percent cell count reference ranges are not reported, since discordance with absolute values may lead to misinterpretation of CBC data. Current Interpretive Data was last revised on 2017. Imm gran pct 0.1 % JONATHAN VILLASEÑOR Comment: Interpretive Data Percent cell count reference ranges are not reported, since discordance with absolute values may lead to misinterpretation of CBC data. Current Interpretive Data was last revised on 2017. Lymphocyte pct 40.0 % JONATHAN GROSSCH Comment: Interpretive Data Percent cell count reference ranges are not reported, since discordance with absolute values may lead to misinterpretation of CBC data. Current Interpretive Data was last revised on 2017. Monocyte pct 6.6 % JONATHAN GROSSCH Comment: Interpretive Data Percent cell count reference ranges are not reported, since discordance with absolute values may lead to misinterpretation of CBC data. Current Interpretive Data was last revised on 2017. Eosinophil pct 3.5 % [facility] Comment: Interpretive Data Percent cell count reference ranges are not reported, since discordance with absolute values may lead to misinterpretation of CBC data. Current Interpretive Data was last revised on 2017. Basophil pct 0.4 % [facility] Comment: Interpretive Data Percent cell count reference ranges are not reported, since discordance with absolute values may lead to misinterpretation of CBC data. Current Interpretive Data was last revised on 2017. Blood 05/19/2024 3:33 PM CHILD CARE PROVIDER 05/19/2024 3:59 PM CHILD CARE PROVIDER us Anita Kelley NP LAB BLOOD ORDERABLES Final Result [facility] [address] [facility]. [place] [address] * CBC with auto differential (05/19/2024 3:33 PM CHILD CARE PROVIDER) WBC 6.8 3.8 - 9.9 K/cumm Hgb 13.3 11.9 - 15.5 g/dL [facility] Hct 39.7 35.6 - 45.5 % [facility] Plt 230 150 - 400 K/cumm [facility] MPV 11.4 9.1 - 12.3 fL [facility] RBC 4.41 3.90 - 5.20 M/cumm [facility] MCV 90.0 81.3 - 96.4 fL [facility] MCH 30.2 27.1 - 33.3 pg [facility] MCHC 33.5 32.3 - 35.7 g/dL [facility] RDW CV 12.3 11.1 - 14.9 % [facility] RDW SD 40.4 35.7 - 48.1 fL [facility] NRBC abs 0.00 0.00 - 0.01 K/cumm [facility] Blood 05/19/2024 3:33 PM CHILD CARE PROVIDER 05/19/2024 3:59 PM CHILD CARE PROVIDER Result [facility] Anita Kelley SECOND HAND LAB BLOOD ORDERABLES Final Result Performing Organization Address [facility] Co de Phone Number JONATHAN [facility] [phone] [address] [facility] [employer] [place], [place] [id number] * Cancer antigen 19-9 (05/19/2024 3:33 PM CHILD CARE PROVIDER) Pathologist [facility] CA 19-9 ag 4.5 0.0 - 35.0 units/mL Comment: Interpretive Data The [employer] CA 19-9 assay procedure was used. Results from different manufacturers or methods may not be comparable. Serial testing should be performed using the same method. Testing performed by: [facility], [address] [place] [address]., [id number] Blood 05/19/2024 3:33 PM CHILD CARE PROVIDER 05/19/2024 6:22 PM CHILD CARE PROVIDER Result [facility] Anita Kelley SECOND HAND LAB BLOOD ORDERABLES Final Result Performing Organization Address [facility] de Phone Number JONATHAN [facility] [phone] [address] [facility] [place] [address] * Vitamin A (05/19/2024 3:33 PM CHILD CARE PROVIDER) [facility] Vitamin A 69.2 32.5 - 78.0 mcg/dL [facility] Lab Comment: ADDITIONAL INFORMATION This test was developed and its performance characteristics determined by [facility] in a manner consistent with CLIA requirements. This test has not been cleared or approved by the U.S. Food and Drug Administration. Test Performed by: [facility] - [address] [address] Power Mule Operator: Reny Srivastava Ph.D.; CLIA# [id number] Blood 05/19/2024 3:33 PM CHILD CARE PROVIDER 05/19/2024 3:59 PM CHILD CARE PROVIDER Result [facility] Anita Kelley SECOND HAND LAB BLOOD ORDERABLES Final Result Performing Organization Address [facility] de Phone Number JONATHAN RAMIREZWCH [id number] [employer] [place], [place] [id number] [facility] * [id number], Tumor Marker (05/19/2024 3:33 PM CHILD CARE PROVIDER) alpha Fetoprotein 2.3 <=8.3 ng/mL Comment: Interpretive [...] et al. J. Ped Surg 1978;13:155-156 Anali Arita. et al. Clin Chem Lab Med 2018;57:783-797 Hung Reyna et al. Clin Chem 2014;[id number]. Current interpretive data was last revised 2022. Testing performed by: [facility], [address] [place] [address], [place]., [address] Blood 05/19/2024 3:33 PM CHILD CARE PROVIDER 05/19/2024 6:22 PM CHILD CARE PROVIDER Anita Kelley SECOND HAND LAB BLOOD ORDERABLES Final Result Performing Organization Address [facility] Co de Phone Number JONATHAN RAMIREZWCH [address] [place] [address] * (ABNORMAL) Vitamin D 25 hydroxy (05/19/2024 3:33 PM CHILD CARE PROVIDER) Vitamin D 25-OH 93(H) 30 - 80 ng/mL Blood 05/19/2024 3:33 PM CHILD CARE PROVIDER 05/19/2024 3:59 PM CHILD CARE PROVIDER Anita Kelley SECOND HAND LAB BLOOD ORDERABLES Edite d Result - Final Performing Organization Address [facility] Co de Phone Number JONATHAN VILLASEÑOR [address] [facility] [place] [address] * Vitamin E (05/19/2024 3:33 PM CHILD CARE PROVIDER) [facility] Tocopherol (Vit E) 16.0 5.5 - 17.0 mg/L [facility] Comment: ADDITIONAL INFORMATION This test was developed and its performance characteristics determined by [facility] in a manner consistent with CLIA requirements. This test has not been cleared or approved by the U.S. Food and Drug Administration. Test Performed by: [place] [address] Power Mule Operator: Reny Srivastava Ph.D.; CLIA# [id number] Blood 05/19/2024 3:33 PM CHILD CARE PROVIDER 05/19/2024 3:59 PM CHILD CARE PROVIDER Anita Kelley NP LAB BLOOD ORDERABLES Final Result Performing Organization Address [facility] de Phone Number JONATHAN GROSSCH [address] [place] [address] [facility] * (ABNORMAL) Gamma GT (05/19/2024 3:33 PM CHILD CARE PROVIDER) [facility] GGT 37(H) 5 - 35 Units/L Blood 05/19/2024 3:33 PM CHILD CARE PROVIDER 05/19/2024 3:59 PM CHILD CARE PROVIDER Result [facility] Anita Kelley NP LAB BLOOD ORDERABLES Edite d Result - Final Performing Organization Address [facility] Co de Phone Number JONATHAN BJWCH [address] Department [employer] [place], [place] [id number] * IgG (05/19/2024 3:33 PM CHILD CARE PROVIDER) Immunoglobulin G 1,306 700 - 1,600 mg/dL Comment:Testing performed by : [facility], [facility] [facility], [place]., [address] Blood 05/19/2024 3:33 PM CHILD CARE PROVIDER 05/19/2024 6:22 PM CHILD CARE PROVIDER us Ainta Kelley NP LAB BLOOD ORDERABLES Final Result [facility] [address] [facility]. [place] [address] * (ABNORMAL) Comprehensive metabolic panel (05/19/2024 3:33 PM CHILD CARE PROVIDER) Sodium 139 135 - 145 mmol/L Potassium, pl 3.5 3.3 - 4.9 mmol/L CERNER BJW[facility] Chloride 100 97 - 110 mmol/L [facility] CO2 29 22 - 32 mmol/L [facility] Anion gap 10 2 - 15 mmol/L [facility] BUN 15 6 - 25 mg/dL [facility] Creatinine 0.75 0.60 - 1.10 mg/dL [facility] Glucose 96 70 - 199 mg/dL [facility] Comment: Interpretive Data Fasting glucose >/= 126 [...] classification and Diagnosis of Diabetes Diabetes Care 202; 46: S19-S40. Current interpretive data was last [...] Units/L CERNER BJW[facility] Blood 05/19/2024 3:33 PM CHILD CARE PROVIDER 05/19/2024 3:59 PM CHILD CARE PROVIDER Anita Kelley NP LAB BLOOD ORDERABLES Edite d Result - Final [facility] [address] [facility]. [place] [address] * Liver Elastography w/o Imaging [facility] (All Locations) (05/19/2024 3:29 PMCST) Anatomical Region Laterality Modality Other Anita Kelley NP GI PROCEDURE ORDERABLES Fi nal Result * (ABNORMAL) Glucose, random (Outreach) (05/16/2024 9:15 AM CHILD CARE PROVIDER) [facility] Signature Glucose 59(L) 70 - 199 mg/dL Comment: [...] last revised 2022. Blood 05/16/2024 9:15 AM CHILD CARE PROVIDER 05/16/2024 12:25 PM CHILD CARE PROVIDER West Saenz MD LAB BLOOD ORDERABLES Final Result JONATHAN [facility] [place] [address] * eGFR (05/16/2024 9:15 AM CHILD CARE PROVIDER) [facility] eGFR >90 >=60 mL/min/1. 73 m2 Comment: [...] last reviewed 2021. Blood 05/16/2024 9:15 AM CHILD CARE PROVIDER 05/16/2024 12:39 PM CHILD CARE PROVIDER us West Saenz MD LAB BLOOD ORDERABLES Final Result JONATHAN [facility] [place] [address] * Differential, auto (05/16/2024 9:15 AM CHILD CARE PROVIDER) Pathologist [facility] Neutrophil abs 2.4 1.5 - 6.5 K/cumm Imm gran abs 0.0 0.0 - 0.1 K/cumm [facility] Lymphocyte abs 1.7 0.8 - 3.3 K/cumm [facility] Monocyte abs 0.5 0.2 - 0.8 K/cumm [facility] Eosinophil abs 0.4 0.0 - 0.5 K/cumm [facility] Basophil abs 0.0 0.0 - 0.1 K/cumm [facility] Neutrophil pct 47.0 % [facility] Comment: Interpretive Data Percent cell count reference ranges are not reported, since discordance with absolute values may lead to misinterpretation of CBC data. Current Interpretive Data was last revised on 2017. Imm gran pct 0.2 % JONATHAN [facility] Comment: Interpretive Data Percent cell count reference ranges are not reported, since discordance with absolute values may lead to misinterpretation of CBC data. Current Interpretive Data was last revised on 2017. Lymphocyte pct 34.8 % [facility]ONATHAN [facility] Comment: Interpretive Data Percent cell count reference ranges are not reported, since discordance with absolute values may lead to misinterpretation of CBC data. Current Interpretive Data was last revised on 2017. Monocyte pct 9.0 % [facility]AN [facility] Comment: Interpretive Data Percent cell count reference ranges are not reported, since discordance with absolute values may lead to misinterpretation of CBC data. Current Interpretive Data was last revised on 2017. Eosinophil pct 8.2 % [facility]AN [facility] Comment: Interpretive Data Percent cell count reference ranges are not reported, since discordance with absolute values may lead to misinterpretation of CBC data. Current Interpretive Data was last revised on 2017. Basophil pct 0.8 % [facility] Comment: Interpretive Data Percent cell count reference ranges are not reported, since discordance with absolute values may lead to misinterpretation of CBC data. Current Interpretive Data was last revised on 2017. Blood 05/16/2024 9:15 AM CHILD CARE PROVIDER 05/16/2024 12:25 PM CHILD CARE PROVIDER us West Saenz MD LAB BLOOD ORDERABLES Final Result [facility] [place] [address] * (ABNORMAL) Comprehensive metabolic panel, without glucose (Outreach) (05/16/2024 9:15 AM CHILD CARE PROVIDER) Sodium 142 135 - 145 mmol/L Potassium, pl 3.7 3.3 - 4.9 mmol/L [facility]ON[facility]AN [facility] Chloride 103 97 - 110 mmol/L [facility] CO2 27 22 - 32 mmol/L [facility] Anion gap 12 2 - 15 mmol/L [facility] BUN 10 6 - 25 mg/dL [facility] Creatinine 0.71 0.60 - 1.10 mg/dL [facility] Calcium 9.5 8.5 - 10.3 mg/dL [facility] Protein, pl 7.4 6.5 - 8.5 g/dL [facility] Albumin 4.4 3.5 - 5.0 g/dL [facility] Bilirubin, total 0.2 0.1 - 1.2 mg/dL [facility] Alk phos 237(H) 40 - 130 Units/L [facility] AST 26 10 - 45 Units/L [facility] ALT 31 7 - 45 Units/L [facility] Blood 05/16/2024 9:15 AM CHILD CARE PROVIDER 05/16/2024 12:25 PM CHILD CARE PROVIDER us West Saenz MD LAB BLOOD ORDERABLES Final Result [facility] [place] [address] * CBC with auto differential (05/16/2024 9:15 AM CHILD CARE PROVIDER) WBC 5.0 3.8 - 9.9 K/cumm Hgb 13.5 11.9 - 15.5 g/dL [facility] Hct 40.8 35.6 - 45.5 % [facility] Plt 223 150 - 400 K/cumm [facility] MPV 12.1 9.1 - 12.3 fL [facility] RBC 4.56 3.90 - 5.20 M/cumm [facility] MCV 89.5 81.3 - 96.4 fL [facility] MCH 29.6 27.1 - 33.3 pg [facility] MCHC 33.1 32.3 - 35.7 g/dL [facility] RDW CV 12.4 11.1 - 14.9 % [facility] RDW SD 41.1 35.7 - 48.1 fL [facility] NRBC abs 0.00 0.00 - 0.01 K/cumm [facility] Blood 05/16/2024 9:15 AM CHILD CARE PROVIDER 05/16/2024 12:25 PM CHILD CARE PROVIDER West Saenz MD LAB BLOOD ORDERABLES Final Result Performing Organization Address [facility] Co de Phone Number [facility] [place] [address] * CRP (acute phase) (05/16/2024 9:15 AM CHILD CARE PROVIDER) [facility] CRP 7.3 <=10.0 mg/L Blood 05/16/2024 9:15 AM CHILD CARE PROVIDER 05/16/2024 12:25 PM CHILD CARE PROVIDER West Saenz MD LAB BLOOD ORDERABLES Final Result Performing Organization Address [facility] de Phone Number [facility] [place] [address] * POC Influenza A/B, COVID-19 antigen (05/14/2024 3:04 PM CHILD CARE PROVIDER) [facility] Influenza A Ag, POC Negative Negative [facility] Influenza B Ag, POC Negative Negative [facility] COVID-19 Ag POC Presumptive Negative Presumptive Negative, Invalid [facility] Nasopharyngeal 05/14/2024 3: 04 PM CHILD CARE PROVIDER us Lj Bruce NP POINT OF CARE TEST ORDERABLES F inal Result Performing Organization Address [facility]/ZIP Co de Phone Number [facility] [address] [place] [address] * POCT rapid strep A (05/14/2024 2:53 PM CHILD CARE PROVIDER) [facility] Rapid Strep A, POC Negative Negative Swab 05/14/2024 2:53 PM CHILD CARE PROVIDER us Lj Bruce NP POINT OF CARE TEST ORDERABLES F inal Result * Colonoscopy (01/18/2024 7:48 AM CDT) Anatomical Region Laterality Modality Other Narrative Procedure Note West Saenz MD - 01/18/2024 7:48 AM CDT ENDOSCOPY LAB Patient Name: Linnea Martinez Procedure Date: 01/18/2024 7:48 AM Date of : 1975 Admit Type: Outpatient Age: 48 Gender: Female Attending MD: West Saenz M.D. Room: [facility] ENDOSCOPY ROOM 01 Note Status: Finalized Procedure: [...] The scope was passed under direct vision.The [id number] was introduced through the anusand advanced to [...] business hours - Please call theNurse Coordinator: [phone]. After hours, evening, nights, weekends and holidays- Please call the hospital shredder/granulator operator at and ask for the GI fellow blade boner. Electronically signed by West Saenz MD West Saenz M.D. 01/18/2024 8:27:45 AM Number of Addenda: 0 Note Initiated On: 01/18/2024 7:48 AM us West Saenz MD ENDOSCOPY PROCEDURES Final Result [...] sonography of the left breast performed. COMPARISON: [id number] FINDINGS: There are scattered areas of fibroglandular [...] Hepatitis C antibody Blood (05/21/2023 10:28 AM CHILD CARE PROVIDER) Hep C Ab Nonreactive Nonreactive JONATHAN BJW[facility] Comment: Interpretive Data Nonreactive: Antibodies to HCV [...] last revised on 2019. Testing performed by: [facility], [address] [place] [address]., [address] Blood 05/21/2023 10:2 8 AM CHILD CARE PROVIDER 05/21/2023 12:45 PM CHILD CARE PROVIDER Anita Kelley NP LAB MICROBIOLOGY - GENERAL ORDERABLES Edited Result - Final JONATHAN RAMIREZCH [address] [facility]. [place] [address] * PAP SMEAR WITH HPV (12/06/2022) 12/06/2022 Historical Provider HEALTH MAINTENANCE Final Result from Last 3 Months or Most Recently Relevant to Health Maintenance Insurance BS [facility] [place] [address] [address] Member Subscriber Plan / Payer (Ef fective 2022-Present) Name:Linnea Martinez Relation to Subscriber:Spouse Name:BHARTI MARTINEZ Date of :1973 (Home) Address: [address] [place] [address] Payer ID:[id number] ([facility]) Type:[facility] H[facility]/PPO Address: [place] [phone] [facility] Advance Directives For more information, please contact: [phone] * Full Code (Latest Code Status on File) Date Activated Date Inactivated Comments 01/18/2024 7:28 AM 01/18/2024 1:10 PM * Full Code Date Activated Date Inactivated Comments 07/16/2023 5:34 PM 07/25/2023 3:36 PM * Full Code Date Activated Date Inactivated Comments 07/09/2023 2:01 AM 07/11/2023 11:05 PM Care Teams Tie Mill Operator Relationship Specialty Start Date End Date Terese Garcia MD PCP - General Internal Medicine 04/03/19 Kt Carmona MD Consulting Physician Colon and Rectal Surgery 07/20/23 West Saenz MD [address] [facility] [place] [address] Consulting Physician Gastroenterology 07/20/23
--- OUTSIDE RECORDS SUMMARY | 2024-07-28 14:51 | XMS_ITS | Patient Health Record ---
Author Organization [employer] Address [address] [facility] [address] [place] [id number] Care Team Providers Care Fire Assistant Name Role Phone Terese Garcia Primary Care Provider Marco Antonio Hall Unavailable [phone] Allergies Allergen (clinical drug ingredient) Drug/Non Drug Allergy documented on EMR Reaction Allergy Type Onset Date Status EvonneQuchristal Hives Drug Allergy Active Reason For Referral No Information Medications Medication SIG (Take, Route, Frequency, Duration) Notes Start Date End Date Status predniSONE 10 MG 1/2tablet Orally Every other day 06/21/2022 Active sulfaSALAzine 500 MG 2 tablets Orally BI D for 90 days 06/08/2022 Active Remicade Active Probiotic Active carBAMazepine Active OTC/Vitamins Daily Vitamin, Calcium, Vit D,, Folic Acid, Vit B12 Active Immunizations Vaccine Route Administration Date Status Comme nts Influenza Vaccination Unknown 03/18/2018 Administered Social History Tobacco Use: Social History Observation Description Date Details (start date - stop date) Never Smoker NA - NA Tobacco Use/Smoking Question Answer Notes Are you a nonsmoker Section Notes: , , , , Problems Problem Type SNOMED Code ICD Code Onset Dates Problem Status W/U Status Risk Notes Problem 32232211 Crohn's disease of small intestine without complications (K50.00) Active confirmed Jane has been maintained on Remicade every eight weeks since June 2019 and is doing well. She has a history of small bowel stricture and has not experienced any significant difficulties. Her last colonoscopy took place in April 2018. She was found have a stricture of the terminal ileum, two polyps at the rectosigmoid colon, and patchy inflammation at the ileocecal valve. She was instructed to repeat colonoscopy in two years. Recent labs which included CMP, CRP and CBC were normal. Problem 927375297 History of colon polyps (Z86.010) Active confirmed Problem Crohn's disease of small AND large intestines (45778989) Crohn's disease of both small and large intestine without complication (K50.80) Active confirmed Problem 51194520 Crohns ileitis, unspecified complication (K50.019) Active confirmed Plan Of Treatment Pending Test Test Name Order Date Colonoscopy 03/05/2018 Colonoscopy 10/13/2020 CMP: COMPLETE METABOLIC PANEL 04/10/2019 Thiopurine Metabolites 04/10/2019 CBC With Differential/Platelet 9 CRP 04/10/2019 Insurance Providers Payer Name Payer Address Payer Phone Subscriber Number Group Number Insured Name Patient Relationship to Insured Coverage Start Date Coverage End Date [facility] [address] [place] [address] [id number] Jane Martinez Self - patient is the insured [facility] [address] [address] [place] [address] [id number] Severo Martinez Spouse - patient is the spouse of the insured Medical (General) History Medical History History ICD Code Crohn's Ileitis Colon Polyps Internal Hemorrhoids Terminal Ileum Stricture Elevated Alkaline Phosphatase (normalize d) Anemia Endometriosis Seizure Disorder Brain Tumor Hypertension Surgical History Surgery Date(Month/Year) Colonoscopy:Stricture at the ileocecal valve.Nodular mucosa in the ascending colon.Otherwise normal mucosa in the entire examined colon. 11/2020 Upper Endoscopy: Normal Exam 12/2006 Appendectomy Dilatation and Curettage Laparoscopy-Endometriosis Hospitalization History Reason Date(Month/Year) [facility]: Crohn's Flare 04/2022 [facility]: Bowel Blockage Crohn's Disease Child X2
--- NOTE | 2024-07-28 16:34 | ED.URI ---
HPI - URI/Sore Throat General Chief Complaint: Upper Respiratory Infection <Anita Dyer PA-C - Last Filed: 07/30/24 19:12> Stated Complaint: sob, flu A+, immunocompromised <Anita Dyer PA-C - Last Filed: 07/30/24 19:12> Time Seen by Provider: 07/28/24 16:34 <Anita Dyer PA-C - Last Filed: 07/30/24 19:12> Focused HPI: This is a 49 year old female that presents to the ER for shortness of breath. Reports she is currently positive for influenza A. Finished Tamiflu. She was seen at urgent care and started on steroids and antibiotics (Azithromycin and Amoxicillin). She has been taking these with little relief. She was also prescribed an inhaler. She has history of Chron's and receive immunotherapy for this. GENERAL: Well-appearing, well-nourished, and in no acute distress. HEAD: Normocephalic, atraumatic. CHEST: Clear to auscultation. ?No respiratory distress. HEART: Regular rate and rhythm.? NEURO: ?Alert and oriented x3. Patient screened in triage and initial orders placed.? ?Additional care and disposition to be based upon?diagnostic testing and treatment. <Anita Dyer PA-C - Last Filed: 07/30/24 19:12> History of Present Illness HPI Narrative: I agree with the assessment documentation of Anita Dyer PA-C. <Sridevi Coburn APRN - Last Filed: 07/28/24 22:19> Related Data Allergies/Adverse Reactions: Allergies Allergy/AdvReac Type Severity Reaction Status Date / Time dextromethorphan Allergy Mild Hives Verified 07/28/24 18:13 doxylamine Allergy Mild Hives Verified 07/28/24 18:13 pseudoephedrine Allergy Mild Hives Verified 07/28/24 18:13 acetaminophen Allergy Unknown Hives / Verified 07/28/24 18:13 Red Face doxycycline Allergy Unknown Nausea Verified 07/28/24 18:13 <Anita Dyer PA-C - Last Filed: 07/30/24 19:12> Review of Systems Review of Systems: All systems reviewed & are unremarkable except as noted in HPI and below <Sridevi Coburn ESPERANZA - Last Filed: 07/28/24 22:19> [facility] Past Medical History Medical History: Medical History (Updated 07/30/24 @ 19:11 by Anita Dyer PA-C) Crohn disease <Anita Dyer PA-C - Last Filed: 07/30/24 19:12> Social History Social History: Social History (Updated 07/30/24 @ 19:11 by Anita Dyer PA-C) Substance use: never <Anita Dyer PA-C - Last Filed: 07/30/24 19:12> Exam Narrative: GENERAL: Ill-appearing, well-nourished, non-toxic, in acute respiratory distress d/t coughing fits. HEAD: Normocephalic, atraumatic. NECK: Supple. No adenopathy, no masses. RESPIRATORY: Airway patent, respirations labored. Clear to auscultation bilaterally, no rales, rhonchi, wheezing. CARDIOVASCULAR: Tachycardia, regular rhythm without murmurs, rubs, or gallops. Peripheral pulses 2+ and equal bilaterally. ABDOMINAL: Soft, nontender, nondistended, no hepatosplenomegaly. Normoactive BS. MUSCULOSKELETAL: Moves all extremities. Strength/ROM intact without gross deformities. + back pain SKIN: Warm, dry, normal color. No rashes. NEURO: A&O X3. Speech clear. Cranial nerves II-XII grossly intact. Steady gait. No ataxic movements. PSYCHIATRIC: Appropriate mood and affect. Normal interaction. <Sridevi Coburn, BOX COVERER HAND - Last Filed: 07/28/24 22:19> Course Vital Signs Vital signs: Vital Signs Temperature 97.2 F L 07/28/24 14:43 Pulse Rate 108 H 07/28/24 14:43 Respiratory Rate 19 07/28/24 14:43 Blood Pressure 161/99 H 07/28/24 14:43 Pulse Oximetry 97 07/28/24 14:43 Oxygen Delivery Room Air 07/28/24 14:43 Temperature 97.2 F L 07/28/24 14:43 Pulse Rate 66 07/28/24 22:05 Respiratory Rate 14 07/28/24 22:05 Blood Pressure 135/73 07/28/24 22:05 Pulse Oximetry 100 07/28/24 22:05 Oxygen Delivery Room Air 07/28/24 18:09 <Anita Dyer PA-C - Last Filed: 07/30/24 19:12> Vital Signs Temperature 97.2 F L 07/28/24 14:43 Pulse Rate 108 H 07/28/24 14:43 Respiratory Rate 19 07/28/24 14:43 Blood Pressure 161/99 H 07/28/24 14:43 Pulse Oximetry 97 07/28/24 14:43 Oxygen Delivery Room Air 07/28/24 14:43 Temperature 97.2 F L 07/28/24 14:43 Pulse Rate 66 07/28/24 22:05 Respiratory Rate 14 07/28/24 22:05 Blood Pressure 135/73 07/28/24 22:05 Pulse Oximetry 100 07/28/24 22:05 Oxygen Delivery Room Air 07/28/24 18:09 <Sridevi Coburn APRN - Last Filed: 07/28/24 22:19> MDM - URI/Sore Throat MDM Narrative Medical decision making narrative: Pt is a 49 year old female that presents to the ER for shortness of breath. Reports she is currently positive for influenza A. Finished Tamiflu. She was seen at urgent care and started on steroids and antibiotics (Azithromycin and Amoxicillin). She has been taking these with little relief. She was also prescribed an inhaler. She has history of Crohn's disease and receives immunotherapy for treatment. Labs Ordered: CBC, CMP, troponin, lipase, INR, PTT Imaging Ordered: chest x-ray 2V, EKG, CTA chest PE abdomen/pelvis Medications Ordered: Morphine, Decadron, 1 L normal saline IV bolus, prednisone p.o., DuoNeb Results: Patient's CT chest/abdomen/pelvis scan indicates no pulmonary embolus. No aortic dissection. The lungs are clear. No acute pathology detected within the abdomen or pelvis. Diagnosis: bronchitis, upper respiratory infection Risks: HEART score, PECARN score Consults: none necessary Patient Education/Shared MDM: Results of scans shared with patient. She endorses improvement following medication administration of Promethazine/Codeine. 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 She is strongly advised to maintain hydration status upon discharge and follow-up with her PCP. Pt is advised to complete her full dose of antibiotics at home. She will be discharged home with prescription for Promethazine/Codeine, albuterol nebulizer, and a couple more days of Prednisone. Patient already has prescriptions from urgent care of [facility], Prednisone, antibiotics, and Tamiflu. Strict return precautions provided. Patient verbalized understanding is in agreement with plan. Vital signs stable at time of discharge. All questions answered. <Sridevi Coburn APRN - Last Filed: 07/28/24 22:19> Differential Diagnosis Differential diagnosis: Likely upper respiratory infection, viral infection, bronchitis, influenza and pharyngitis <Sridevi Coburn APRN - Last Filed: 07/28/24 22:19> Lab Data Attestation: I reviewed the patient's lab results. <Sridevi Coburn APRN - Last Filed: 07/28/24 22:19> Result diagrams: 07/28/24 17:53 07/28/24 17:53 <Anita Dyer PA-C - Last Filed: 07/30/24 19:12> Labs: Lab Results 07/28/24 07/28/24 Range/Units 17:53 20:44 WBC 10.9 H (4.5-10.0) K/mm3 RBC 4.58 (4.2-5.4) M/mm3 Hgb 14.0 (12.0-15.0) g/dL Hct 39.2 (37.0-47.0) % MCV 85.6 (80-100) fl MCH 30.6 (26-34) pg MCHC 35.7 (32-36) g/dl RDW 12.0 (11.5-14.5) % Plt Count 292 (150-375) k/mm3 MPV 10.6 H (7.4-10.4) fl Immature Gran % (Auto) 0.6 H (0-0.5) % Neut % (Auto) 86.9 H (45.5-73.1) % Lymph % (Auto) 10.5 L (18.3-44.2) % [place] % (Auto) 1.7 L (2.6-8.5) % Eos % (Auto) 0.0 (0-4.4) % Baso % (Auto) 0.3 (0.2-1.2) % Lymph # (Auto) 1.14 (0.9-3.2) K/mm3 [place] # (Auto) 0.2 (0.1-0.6) K/mm3 Eos # (Auto) 0.0 (0-0.3) K/mm3 Baso # (Auto) 0.0 (0.0-0.1) K/mm3 Abs Immat Gran (auto) 0.07 H (0.00-0.031) K/mm3 Absolute Neuts (auto) 9.5 H (1.3-6.7) K/mm3 Absolute Nucleated RBC 0.000 (0.0-0.012) K/mm3 Nucleated RBC % 0.0 (0.0-0.2) % PT 12.1 (11.1-14.7) Seconds INR 0.9 APTT 21.4 L (22.3-36.8) Seconds Sodium 128 L (137-145) mmol/L Potassium 3.3 L (3.4-5.0) mmol/L Chloride 91 L (98-107) mmol/L Carbon Dioxide 23 (22-30) mmol/L Anion Gap 14 H (4-12) mmol/L BUN 15 (7-17) mg/dL Creatinine 0.56 L (0.7-1.0) mg/dL Estim Creat Clear Calc 111 ml/min Estimated GFR > 60 (59 - ) Glucose 125 H (65-110) mg/dL Calcium 9.7 (8.4-10.2) mg/dL Total Bilirubin 0.5 (0.2-1.3) mg/dL AST 37 H (14-36) U/L ALT 55 H (6-35) U/L Alkaline Phosphatase 202 H (38-126) U/L Troponin I < 0.012 < 0.012 (0.000-0.034) ng/mL Total Protein 8.0 (6.3-8.2) g/dL Albumin 4.8 (3.5-5.1) g/dL Lipase 122 (23-300) U/L <Anita Dyer PA-C - Last Filed: 07/30/24 19:12> Lab Results 07/28/24 07/28/24 Range/Units 17:53 20:44 WBC 10.9 H (4.5-10.0) K/mm3 RBC 4.58 (4.2-5.4) M/mm3 Hgb 14.0 (12.0-15.0) g/dL Hct 39.2 (37.0-47.0) % MCV 85.6 (80-100) fl MCH 30.6 (26-34) pg MCHC 35.7 (32-36) g/dl RDW 12.0 (11.5-14.5) % Plt Count 292 (150-375) k/mm3 MPV 10.6 H (7.4-10.4) fl Immature Gran % (Auto) 0.6 H (0-0.5) % Neut % (Auto) 86.9 H (45.5-73.1) % Lymph % (Auto) 10.5 L (18.3-44.2) % [place] % (Auto) 1.7 L (2.6-8.5) % Eos % (Auto) 0.0 (0-4.4) % Baso % (Auto) 0.3 (0.2-1.2) % Lymph # (Auto) 1.14 (0.9-3.2) K/mm3 [place] # (Auto) 0.2 (0.1-0.6) K/mm3 Eos # (Auto) 0.0 (0-0.3) K/mm3 Baso # (Auto) 0.0 (0.0-0.1) K/mm3 Abs Immat Gran (auto) 0.07 H (0.00-0.031) K/mm3 Absolute Neuts (auto) 9.5 H (1.3-6.7) K/mm3 Absolute Nucleated RBC 0.000 (0.0-0.012) K/mm3 Nucleated RBC % 0.0 (0.0-0.2) % PT 12.1 (11.1-14.7) Seconds INR 0.9 APTT 21.4 L (22.3-36.8) Seconds Sodium 128 L (137-145) mmol/L Potassium 3.3 L (3.4-5.0) mmol/L Chloride 91 L (98-107) mmol/L Carbon Dioxide 23 (22-30) mmol/L Anion Gap 14 H (4-12) mmol/L BUN 15 (7-17) mg/dL Creatinine 0.56 L (0.7-1.0) mg/dL Estim Creat Clear Calc 111 ml/min Estimated GFR > 60 (59 - ) Glucose 125 H (65-110) mg/dL Calcium 9.7 (8.4-10.2) mg/dL Total Bilirubin 0.5 (0.2-1.3) mg/dL AST 37 H (14-36) U/L ALT 55 H (6-35) U/L Alkaline Phosphatase 202 H (38-126) U/L Troponin I < 0.012 < 0.012 (0.000-0.034) ng/mL Total Protein 8.0 (6.3-8.2) g/dL Albumin 4.8 (3.5-5.1) g/dL Lipase 122 (23-300) U/L <Sridevi Coburn APRN - Last Filed: 07/28/24 22:19> Imaging Data Attestation: I personally reviewed and interpreted this imaging study as follows: <Sridevi Coburn APRN - Last Filed: 07/28/24 22:19> Radiologist's impression: Impressions Chest X-Ray 07/28/24 18:18 IMPRESSION: No focal infiltrate or effusion. Chest/Abdomen/Pelvis CTA 07/28/24 20:00 IMPRESSION: No pulmonary embolus. No aortic dissection. The lungs are clear. No acute pathology detected within the abdomen or pelvis. <Sridevi Coburn APRN - Last Filed: 07/28/24 22:19> Critical Care Time Critical Care Time Critical Care Time: No <Anita Dyer PA-C - Last Filed: 07/30/24 19:12> Discharge Plan Discharge Clinical Impression: Bronchitis Upper respiratory infection Qualifiers: URI type: unspecified URI Qualified Code(s): J06.9 - Acute upper respiratory infection, unspecified <Anita Dyer PA-C - Last Filed: 07/30/24 19:12> Patient Disposition: Home, Self-Care <Anita Dyer PA-C - Last Filed: 07/30/24 19:12> Condition: Stable <Anita Dyer PA-C - Last Filed: 07/30/24 19:12> Instructions: Antibiotic Form, Acute Bronchitis (ED) <Anita Dyer PA-C - Last Filed: 07/30/24 19:12> Additional Instructions: Please return to the ER with an worsening symptoms. Follow-up with primary care provider in the next 2-3 days. Take all medications as prescribed. <Anita Dyer PA-C - Last Filed: 07/30/24 19:12> Patient Language: Japanese <Anita Dyer PA-C - Last Filed: 07/30/24 19:12> Prescriptions: New (DME) Reusable Nebulizer Kit Kit See Rx Instructions .Route Qty: 1 0RF Rx Instructions: As directed albuterol sulfate 5 mg/mL solution for nebulization 5 mg inhalation Q6H PRN (Reason: shortness of breath or wheezing) Qty: 75 0RF codeine-guaifenesin 10-100 mg/5 mL liquid 10 ml PO Q4-6H PRN (Reason: cough) Qty: 120 0RF prednisone 50 mg tablet 50 mg PO BID Qty: 4 0RF No Action trazodone 50 mg tablet 50 mg PO HS PRN (Reason: insomnia) Qty: 30 0RF <Anita Dyer PA-C - Last Filed: 07/30/24 19:12> Follow-up/Referrals: Jose,Terese Murphy MD [Primary Care Provider] - <Anita Dyer PA-C - Last Filed: 07/30/24 19:12> Stand Alone Forms: Work/School Release IP <Anita Dyer PA-C - Last Filed: 07/30/24 19:12> Time of Disposition: 22:19 <Anita Dyer PA-C - Last Filed: 07/30/24 19:12> 22:19 <Sridevi Coburn APRN - Last Filed: 07/28/24 22:19>
--- NOTE | 2024-07-28 16:37 | ECG_ITS ---
Test Date: 2024-07-28 17:43:25 Measurements Intervals [place] Rate: 78 P: 71 HI: 143 QRS: 45 QRSD: 89 T: 39 QT: 363 QTc: 416 Interpretive Statements SINUS RHYTHM LEFT ATRIAL ENLARGEMENT BASELINE ARTIFACT- I, II, III, AVR, AVL, AVF, V1-V2 BORDERLINE ECG No previous ECG available for comparison Electronically Signed On 07-28-2024 20:20:43 PROGRAM ADVISOR by Alejandro Boyd D.O.
[2024-07-28 17:10] VITALS: BP 169/93; PULSE 95; RESP 16; O2SAT 99
[2024-07-28 17:37] VITALS: PULSE 115; RESP 20
[2024-07-28] MEDS: IPRATROPIUM 0.5 MG/ALBUTEROL SULFATE 2.5 MG AMPUL.NEB 3 ML INHALATION (17:37)
[2024-07-28 18:03] LABS: Basophils Percent Auto 0.3 % (0.2-1.2); Hematocrit 39.2 % (37.0-47.0); Immature Granulocyte Absolute 0.07 K/mm3 (0.00-0.031); Immature Granulocyte Percent A 0.6 % (0-0.5); Lymphocytes Absolute Auto 1.14 K/mm3 (0.9-3.2); Lymphocytes Percent Auto 10.5 % (18.3-44.2); Mean Corpuscular HGB Conc 35.7 g/dl (32-36); Mean Corpuscular Hemoglobin 30.6 pg (26-34); Mean Corpuscular Volume 85.6 fl (80-100); Mean Platelet Volume 10.6 fl (7.4-10.4); Monocytes Absolute Auto 0.2 K/mm3 (0.1-0.6); Monocytes Percent Auto 1.7 % (2.6-8.5); Neutrophils Absolute Auto 9.5 K/mm3 (1.3-6.7); Neutrophils Percent Auto 86.9 % (45.5-73.1); Platelet Count Result 292 k/mm3 (150-375); Red Blood Count 4.58 M/mm3 (4.2-5.4); White Blood Count 10.9 K/mm3 (4.5-10.0)
[2024-07-28 18:09] VITALS: O2SAT 98
[2024-07-28 18:14] LABS: Alanine Aminotransferase 55 U/L (6-35); Albumin Level 4.8 g/dL (3.5-5.1); Alkaline Phosphatase 202 U/L (38-126); Anion Gap 14 mmol/L (4-12); Aspartate Amino Transferase 37 U/L (14-36); Bilirubin,Total 0.5 mg/dL (0.2-1.3); Blood Urea Nitrogen 15 mg/dL (7-17); Calcium 9.7 mg/dL (8.4-10.2); Carbon Dioxide 23 mmol/L (22-30); Chloride 91 mmol/L (98-107); Estimated CRCL calculation 111 ml/min; Estimated Glomerular Filt Rate > 60; Glucose 125 mg/dL (65-110); Lipase 122 U/L (23-300); Potassium 3.3 mmol/L (3.4-5.0); Sodium 128 mmol/L (137-145)
[2024-07-28 18:26] LABS: Troponin I < 0.012 ng/mL (0.000-0.034)
[2024-07-28 18:29] LABS: INR 0.9; Prothrombin Time 12.1 Seconds (11.1-14.7)
[2024-07-28 18:30] LABS: Partial Thromboplastin Time 21.4 Seconds (22.3-36.8)
[2024-07-28] MEDS: predniSONE 20 MG TABLET 40 MG PO (18:44)
[2024-07-28] MEDS: dexAMETHasone SOD PHOS INJ 10 MG/ML 1 ML VIAL IV PUSH (18:45)
[2024-07-28] MEDS: SODIUM CHLORIDE 0.9% IV 1,000 ML 999 ML IV CONT (18:45)
[2024-07-28] MEDS: MORPHINE SULFATE (*CRX) 4 MG/ML INJ IV PUSH (18:45)
[2024-07-28 18:52] VITALS: BP 146/90; PULSE 89; RESP 20; O2SAT 98
--- OUTSIDE RECORDS SUMMARY | 2024-07-28 19:10 | XMS_ITS | Encounter Summary ---
Author Organization [employer] Address 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
--- OUTSIDE RECORDS SUMMARY | 2024-07-28 19:10 | XMS_ITS | Encounter Summary ---
Author Organization [employer] Address 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
--- OUTSIDE RECORDS SUMMARY | 2024-07-28 19:10 | XMS_ITS | Encounter Summary ---
Author Organization [facility] Address 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 A preliminary abdominal welding machine tender radiograph is not remarkable. Following oral administration [...] 15:04 Procedure Note Provider, Historical - 11/10/[address] [address] Admit Date: 11/08/2007 JANE MARTINEZ Sex: F Admit Prov: REMIGIO BECERRA Date: 1975 Primary Care Prov: GÓMEZ RAYMUNDO CMRN: [id number] Room: [facility] SSN: [id number] IMAGING SERVICES Ordering Prov: N/A Interpretation SMALL BOWEL SERIES 11/08/2007 Clinical history: Crohn's disease, regional enteritis, right lower quadrant abdominal pain. A preliminary abdominal welding machine tender radiograph is not remarkable. Followingoral administration of [...] intestine documented in this encounter Care Teams Rn Geriatric Relationship Specialty Start Date End Date Gómez Raymundo MD [address] [place] [phone] PCP - General 11/17/00 documented as of this encounter
--- OUTSIDE RECORDS SUMMARY | 2024-07-28 19:10 | XMS_ITS | Encounter Summary ---
Author Organization [employer] Address [address] [place] [address] Care Team Providers Care Customer Complaint Clerk Name Role Phone Gómez Raymundo MD Primary Care Provider [phone]- [phone] Encounter Details Date Type Department Care Team (Late st Contact Info) Description 08/10/2006 Outpatient Historical [facility] MRI DEPT Caden Suarez MD [address] [facility] [address] [place] [phone] Grand Mal, not Intractabl ([facility]) (Primary Dx) Social History Tobacco Use Types Packs/Day Years Used Date Smoking Tobacco: Never Assessed Comments Unknown Sex and Gender Information Value Date Recorded Sex Assigned at Not on file 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 Gender Identity Not on file Sexual Orientation Not on file documented as of this encounter Plan of Treatment Not on file documented as of this encounter Visit Diagnoses Diagnosis 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
--- OUTSIDE RECORDS SUMMARY | 2024-07-28 19:10 | XMS_ITS | Encounter Summary ---
Author Organization [employer] Address [address] [place] [address] Care Team Providers Care Co Founder Name Role Phone Gómez Raymundo MD Primary Care Provider +1- [phone] Encounter Details Date Type Department Care Team (Late st Contact Info) Description 01/02/2000 Outpatient Historical Division of Neurology 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
--- OUTSIDE RECORDS SUMMARY | 2024-07-28 19:10 | XMS_ITS | Encounter Summary ---
Author Organization [employer] Address [address] [place] [address] Care Team Providers Care Hand Trimmer Name Role Phone Gómez Raymundo MD Primary Care Provider +1- [phone] Encounter Details Date Type Department Care Team (Late st Contact Info) Description 12/27/1999 Outpatient Historical [facility] MRI DEPT Caden Suarez MD [address] [facility] [address] [place] [phone] Disorder of bone and cartilage, unspecified (Primary Dx) Social History Tobacco Use Types Packs/Day Years Used Date Smoking Tobacco: Never Assessed Comments Unknown Sex and Gender Information Value Date Recorded Sex Assigned at Not on file 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
--- OUTSIDE RECORDS SUMMARY | 2024-07-28 19:10 | XMS_ITS | Clinical Summary ---
Author Organization [facility] Address [address] [place] [address] Care Team Providers Care Technical Fellow Name Role Phone Unavailable Primary Care Provider Unavailabl e Source Comments [facility],non-owned Affiliates and Associated Physician Practices is amultiple site organization consisting of ambulatory clinics and hospital sitesin [place], [place], [place] and [place]. This disclosure is being madepursuant to the Care Everywhere program and may not contain all information available regarding this patient. Last updated 18.[facility] Allergies Active Allergy Reactions Criticality Noted Date [...] Comments Blood Pressure 122/76 05/07/2018 4:56 PM [facility] Pulse 61 05/07/2018 4:56 PM [facility] Temperature 36.8 C (98.2 F) 05/07/2018 4:56 PM [facility] Respiratory Rate 16 05/07/2018 4:56 PM [facility] Oxygen Saturation 99% 05/07/2018 4:56 PM [facility] Inhaled Oxygen Concentration - - Weight 67.1 kg (148 lb) 05/07/2018 4:56 PM [facility] Height 165.1 cm (5' 5 ) 05/07/2018 4:56 PM [facility] Body Mass Index 24.63 05/07/2018 4:56 PM [facility] Plan of Treatment Health Maintenance Due Date [...]
--- OUTSIDE RECORDS SUMMARY | 2024-07-28 19:10 | XMS_ITS | Encounter Summary ---
Author Organization [employer] Address [address] [place] [address] Care Team Providers Care Homemaker Companion Name Role Phone Gómez Raymundo MD Primary Care Provider +1- [phone] Encounter Details Date Type Department Care Team (Late st Contact Info) Description 10/26/2005 Outpatient Historical Division of Neurology 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
--- OUTSIDE RECORDS SUMMARY | 2024-07-28 19:10 | XMS_ITS | Encounter Summary ---
Author Organization [employer] Address [address] [place] [address] Care Team Providers Care Cyber Defense Incident Responder Name Role Phone Gómez Raymundo MD Primary Care Provider +1- [phone] Encounter Details Date Type Department Care Team (Late st Contact Info) Description 09/29/2003 Outpatient Historical Division of Neurology 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
--- OUTSIDE RECORDS SUMMARY | 2024-07-28 19:10 | XMS_ITS | Encounter Summary ---
Author Organization [employer] Address [address] [place] [address] Care Team Providers Care Senior Ui Ux Designer Name Role Phone Gómez Raymundo MD Primary Care Provider +1- [phone] Encounter Details Date Type Department Care Team (Late st Contact Info) Description 04/27/1999 Outpatient Historical Division of Neurology 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
--- OUTSIDE RECORDS SUMMARY | 2024-07-28 19:10 | XMS_ITS | Encounter Summary ---
Author Organization [employer] Address [address] [place] [address] Care Team Providers Care Retort Furnace Helper Name Role Phone Gómez Raymundo MD Primary Care Provider +1- [phone] Encounter Details Date Type Department Care Team (Late st Contact Info) Description 11/03/1999 Outpatient Historical Division of Neurology [address] [address] Caden Suarez MD [address] [facility] [address] [place] [address] Social History Tobacco Use Types Packs/Day Years Used Date Smoking Tobacco: Never Assessed Comments Unknown Sex and Gender Information Value Date Recorded Sex Assigned at Not on file Legal Sex Female 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
--- OUTSIDE RECORDS SUMMARY | 2024-07-28 19:10 | XMS_ITS | Encounter Summary ---
Author Organization [email or web address] Address [address] [place] [address] Care Team Providers Care Farrowing Worker Name Role Phone Gómez Raymundo MD Primary Care Provider +1- [phone] Encounter Details Date Type Department Care Team (Late st Contact Info) Description 09/27/2007 Outpatient Historical [facility] EMERGENCY ROOM [facility] Er, Authorized P NO ADDRESS ON FILE Ondina Michael MD [address] [address] Matheus Ibarra MD [address] [id number] Abdominal Pain, Unspecified Site Social History Tobacco Use Types Packs/Day Years Used Date Smoking Tobacco: Never Assessed Comments Unknown Sex and Gender Information Value Date Recorded Sex Assigned at Not on file Legal Sex Female 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 Gender Identity Not on file Sexual Orientation [...] C-REACTIVE PROTEIN (09/28/2007 9:40 AM CDT) Pathologist [facility] CRP 1.3(H) 0.0 - 0.8 mg/dL [facility] Blood specimen (specimen) 09/28/2007 9:40 AM CDT 09/28/2007 9:50 AM CDT Matheus Ibarra MD CHEMISTRY ORDERABLES Final Re sult [facility] [address] [place] [address] * (ABNORMAL) BASIC METABOLIC PANEL (09/28/2007 9:40 AM CDT) BUN 6 6 - 20 mg/dL [facility] CHLORIDE 107 96 - 108 mmol/L [facility] GLUCOSE 65 65 - 99 mg/dL [facility] SODIUM 140 135 - 145 mmol/L [facility] CALCIUM 8.2(L) 8.4 - 10.2 mg/dL [facility] CO2 24 22 - 30 mmol/L [facility] CREATININE 0.74 0.51 - 0.95 mg/dL [facility] POTASSIUM 3.6 3.5 - 4.9 mmol/L [facility] GFR, >60 >=60 mL/min/1. 7 sq meter [facility] GFR >60 >=60 mL/min/1. 7 sq meter [facility] Comment: Estimated GFR rate interpretative information for both Americans and non- Americans is available on the [facility] Intranet at: [email or web address] Select: Lab Policies and Procedures Select: Reference Ranges - GFR Blood specimen (specimen) 09/28/2007 9:40 AM CDT 09/28/2007 9:50 AM CDT us Matheus Ibarra MD CHEMISTRY ORDERABLES Edited [facility] [address] [place] [address] * CT ABDOMEN PELVIS W CONTRAST (09/27/2007 2:55 AM CDT) Anatomical Region Laterality Modality Abdomen Other 09/27/2007 2:55 AM CDT Narrative 09/27/2007 7:49 AM CDT [facility] [address], [place] [address] Admit Date: 09/27/2007 LINNEA MARTINEZ Sex: F Admit Prov: ER, AUTHORIZED P Date: 1975 Primary Care Prov: PCP , NONE CMRN: [id number] Room: [address] [place] [address] SSN: [id number] IMAGING SERVICES Ordering Prov: N/A Accession Number: [id number] Interpretation CT abdomen and pelvis with contrast [...] 07:49 Procedure Note Ashley Lazcano - 09/27/2007 [facility] [address] [facility] [address] [place], [place] [address] Admit Date: 09/27/2007 LINNEA MARTINEZ Imelda Sex: F Admit Prov: ER, AUTHORIZED P Date: 1975 Primary Care Prov: PCP , NONE CMRN: [id number] Room: [address] [place] [address] SSN: [id number] IMAGING SERVICES Ordering Prov: N/A Interpretation CT [...] QUANT, BLOOD <5 0 - 5 mIU/mL [facility] Comment: Result of 5 - 25 [...] us Silvana Pearce MD CHEMISTRY ORDERABLES Edited [facility] [address] [facility] [address] [place] [address] * C-REACTIVE PROTEIN (09/27/2007 1:01 AM CDT) CRP 0.3 0.0 - 0.8 mg/dL [facility] Blood specimen (specimen) 09/27/2007 1:01 AM CDT 09/27/2007 1:05 AM CDT us Slivana Pearce MD CHEMISTRY ORDERABLES Final Res ult [facility] [address] [place] [address] * (ABNORMAL) COMPREHENSIVE METABOLIC PANEL (09/27/2007 1:01 AM CDT) SODIUM 141 135 - 145 mmol/L [facility] ALKALINE PHOSPHATASE 114(H) 35 - 104 U/L [facility] BILIRUBIN TOTAL 0.4 0.2 - 1.0 mg/dL [facility] CO2 24 22 - 30 mmol/L [facility] TOTAL PROTEIN 7.6 6.3 - 8.6 g/dL [facility] POTASSIUM 3.3(L) 3.5 - 4.9 mmol/L [facility] GLUCOSE 135(H) 65 - 99 mg/dL [facility] AST 21 12 - 32 U/L [facility] BUN 11 6 - 20 mg/dL [facility] CALCIUM 9.2 8.4 - 10.2 mg/dL [facility] ALBUMIN 4.6 3.4 - 4.8 g/dL [facility] CHLORIDE 105 96 - 108 mmol/L [facility] CREATININE 0.73 0.51 - 0.95 mg/dL [facility] ALT 23 0 - 31 U/L [facility] GFR, >60 >=60 mL/min/1. 7 sq meter [facility] GFR >60 >=60 mL/min/1. 7 sq meter [facility] Comment: Estimated GFR rate interpretative information for both Americans and non- Americans is available on the [facility] Intranet at: [email or web address] Select: Lab Policies and Procedures Select: Reference Ranges - GFR Blood specimen (specimen) 09/27/2007 1:01 AM CDT 09/27/2007 1:05 AM CDT us Silvana Pearce MD CHEMISTRY ORDERABLES Edited [facility] [address] [facility] [address] [place] [address] * (ABNORMAL) CBC WITH DIFFERENTIAL (09/27/2007 1:01 AM CDT) HEMOGLOBIN 14.1 11.8 - 14.8 g/dL [facility] RDW 12.3 11.5 - 14.5 % [facility] WBC 11.4(H) 4.0 - 9.8 K/uL [facility] MCH 32.3 27.2 - 32.6 pg [facility] MPV 11.6 9.3 - 12.4 fL [facility] HEMATOCRIT 40.1 35.5 - 44.0 % [facility] RDW-STDEV 41.4 37.1 - 48.7 fL [facility] RBC 4.36 3.90 - 4.90 M/uL [facility] MCHC 35.2 31.5 - 35.5 % [facility] MCV 92.0 82.0 - 99.0 fL [facility] PLATELETS 259 140 - 350 K/uL [facility] LYMPHOCYTES 7(L) 16 - 45 % [facility] LYMPHOCYTE ABSOLUTE 0.84 0.70 - 4.50 K/uL [facility] BASOPHILS 0 0 - 2 % [facility] BASOPHILS ABSOLUTE 0.02 0.00 - 0.20 K/uL [facility] MONOCYTES 5 3 - 13 % [facility] MONOCYTE ABSOLUTE 0.61 0.10 - 1.30 K/uL [facility] NEUTROPHILS 87(H) 45 - 70 % [facility] NEUTROPHIL ABSOLUTE 9.92(H) 1.90 - 7.00 K/uL [facility] EOSINOPHILS 0 0 - 7 % [facility] EOSINOPHIL ABSOLUTE 0.04 0.00 - 0.70 K/uL [facility] Blood specimen (specimen) 09/27/2007 1:01 AM CDT 09/27/2007 1:05 AM CDT us Silvana Pearce MD HEMATOLOGY ORDERABLES Edited INTERFACE SYSTEM Refer to clinic/hospital department [facility] [address] [place] [address] documented in this encounter Visit Diagnoses Diagnosis Abdominal pain, unspecified site documented in this encounter Care Teams Farrowing Worker Relationship Specialty Start Date End Date Gómez Raymundo MD [address] [place] [address] PCP - General 11/17/00 documented as of this encounter
--- OUTSIDE RECORDS SUMMARY | 2024-07-28 19:10 | XMS_ITS | Encounter Summary ---
Author Organization [employer] Address [address] [place] [address] Care Team Providers Care Special Effects Specialist Name Role Phone Gómez Raymundo MD Primary Care Provider +1- [phone] Encounter Details Date Type Department Care Team (Late st Contact Info) Description 10/11/2005 Outpatient Historical HIS MRI DEPT Caden Suarez MD [address] [facility] [address] [place] [address] Grand Mal, not Intractabl ([facility]) (Primary Dx) Social History Tobacco Use Types Packs/Day Years Used Date Smoking Tobacco: Never Assessed Comments Unknown Sex and Gender Information Value Date Recorded Sex Assigned at Not on file Legal 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 Gender Identity Not on file Sexual Orientation Not on file documented as of this encounter Plan of Treatment Not on file documented as of this encounter Visit Diagnoses Diagnosis Generalized convulsive epilepsy without mention of intractable epilepsy ([facility])- Primary Generalized convulsive epilepsy without mention of intractable epilepsy documented in this encounter Care Teams Special Effects Specialist Relationship Specialty Start Date End Date Gómez Raymundo MD [facility] [address] [place] [address] PCP - General 11/17/00 documented as of this encounter
--- OUTSIDE RECORDS SUMMARY | 2024-07-28 19:10 | XMS_ITS | Encounter Summary ---
Author Organization [employer] Address [address] [place] [address] Care Team Providers Care Predictive Maintenance Technician Name Role Phone Gómez Raymundo MD Primary Care Provider +1- [phone] Encounter Details Date Type Department Care Team (Late st Contact Info) Description 11/06/2000 Outpatient Historical Division of Neurology [address] [address] Caden Suarez MD [address] [facility] [address] [place] [address] Social History Tobacco Use Types Packs/Day Years Used Date Smoking Tobacco: Never Assessed Comments Unknown Sex and Gender Information Value Date Recorded Sex Assigned at Not on file Legal Sex Female 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
--- OUTSIDE RECORDS SUMMARY | 2024-07-28 19:10 | XMS_ITS | Referral Summary ---
Author Organization [facility] Address [address] [facility] [place] [address] Care Team Providers Care Exerciser Name Role Phone Unavailable Primary Care Provider Unavailabl e Source Comments [facility],non-owned Affiliates and Associated Physician Practices is amultiple site organization consisting of ambulatory clinics and hospital sitesin [place], [place], [place] and [place]. This disclosure is being madepursuant to the Care Everywhere program and may not contain all information available regarding this patient. Last updated 18.[facility] Allergies Active Allergy Reactions Criticality Noted Date [...] Comments Blood Pressure 122/76 05/07/2018 4:56 PM HOME HEALTH CAREGIVER Pulse 61 05/07/2018 4:56 PM HOME HEALTH CAREGIVER Temperature 36.8 C (98.2 F) 05/07/2018 4:56 PM HOME HEALTH CAREGIVER Respiratory Rate 16 05/07/2018 4:56 PM HOME HEALTH CAREGIVER Oxygen Saturation 99% 05/07/2018 4:56 PM HOME HEALTH CAREGIVER Inhaled Oxygen Concentration - - Weight 67.1 kg (148 lb) 05/07/2018 4:56 PM HOME HEALTH CAREGIVER Height 165.1 cm (5' 5 ) 05/07/2018 4:56 PM HOME HEALTH CAREGIVER Body Mass Index 24.63 05/07/2018 4:56 PM HOME HEALTH CAREGIVER Plan of Treatment Not on file
--- OUTSIDE RECORDS SUMMARY | 2024-07-28 19:10 | XMS_ITS | Encounter Summary ---
Author Organization [employer] Address [address] [place] [address] Care Team Providers Care Seat Installer Name Role Phone Gómez Raymundo MD Primary Care Provider +1- [phone] Encounter Details Date Type Department Care Team (Late st Contact Info) Description 04/13/1999 Outpatient Historical Division of Neurology 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
--- OUTSIDE RECORDS SUMMARY | 2024-07-28 19:10 | XMS_ITS | Patient Health Summary ---
Author Organization [facility] Address [address] [place] [address] Care Team Providers Care Real Estate Closing Coordinator Name Role Phone Unavailable Primary Care Provider Unavailabl e Note from [facility],non-owned Affiliates and Associated Physician Practices is amultiple site organization consisting of ambulatory clinics and hospital sitesin [place], [place], [place] and [place]. This disclosure is being madepursuant to the Care Everywhere program and may not contain all information available regarding this patient. Last updated 18.[facility] Allergies * Nyquil(Urticaria) -Medium Criticality * Pseudoephedrine [...] Comments Blood Pressure 122/76 05/07/2018 4:56 PM JOB COUNSELOR Pulse 61 05/07/2018 4:56 PM JOB COUNSELOR Temperature 36.8 C (98.2 F) 05/07/2018 4:56 PM JOB COUNSELOR Respiratory Rate 16 05/07/2018 4:56 PM JOB COUNSELOR Oxygen Saturation 99% 05/07/2018 4:56 PM JOB COUNSELOR Inhaled Oxygen Concentration - - Weight 67.1 kg (148 lb) 05/07/2018 4:56 PM JOB COUNSELOR Height 165.1 cm (5' 5 ) 05/07/2018 4:56 PM JOB COUNSELOR Body Mass Index 24.63 05/07/2018 4:56 PM JOB COUNSELOR Procedures * CULTURE URINE(Performed 05/07/2018) Performed for [...] Results * CULTURE URINE (05/07/2018 5:33 PM JOB COUNSELOR) Culture [facility] Comment: CULTURE, URINE, ROUTINE MICRO NUMBER: [id number] TEST STATUS: FINAL SPECIMEN SOURCE: URINE, CLEAN CATCH SPECIMEN QUALITY: ADEQUATE RESULT: No Growth Test Performed at: [facility] [address] REY PAINTING MD Urine URINE SPECIMEN OBTAINED BY CLEAN CATCH PROCEDURE / Unknown 05/07/2018 5:33 PM JOB COUNSELOR 05/08/2018 12:56 AM JOB COUNSELOR [facility] - MICROBIOLOG Y ORDERABLES [address] [address] * STREP A SCREEN - POINT OF CARE (AMB) STL (05/07/2018 5:32 PM JOB COUNSELOR) Only the most recent of2 resultswithin the time period is included. Strep A Rapid POCT Negative Negative Strep A Internal Control Present Lot # [id number] Expiration Date 10 10 2019 Throat ENTIRE THROAT (SURFACE REGION OF NECK) / Unknown 05/07/2018 5:32 PM JOB COUNSELOR [facility] - POINT OF CA RE ORDERABLES * (ABNORMAL) URINALYSIS AUTO - POINT OF CARE (AMB) STL (05/07/2018 5:11 PM JOB COUNSELOR) Clarity UA POCT cloudy Color UA POCT yellow Leukocyte UA 70 Negative Nitrite UA POCT negative Negative Urobilinogen UA 0.2 0.1 - 1.0 Protein UA POCT 15 Negative pH UA 7.5 5.0 - 8.0 pH units Blood UA 50 Negative Specific [place] UA POCT 1.010 1.002 - 1.030 Ketone UA negative Negative Bilirubin UA POCT negative Negative Glucose UA negative Negative Expiration Date 03/09/2020 Lot # [id number] QC Verified Yes Yes Urine URINE / Unknown 05/07/2018 5 :11 PM JOB COUNSELOR Lj Bruce APRN-ORACLE ENGINEER LAB - POINT OF CA RE ORDERABLES
--- OUTSIDE RECORDS SUMMARY | 2024-07-28 19:10 | XMS_ITS | Encounter Summary ---
Author Organization [email or web address] Address [address] [place] [address] Care Team Providers Care Weaving Instructor Name Role Phone Gómez Raymundo MD Primary Care Provider +1- [phone] Encounter Details Date Type Department Care Team (Late st Contact Info) Description 07/05/1999 Outpatient Historical [facility] MRI DEPT Caden Suarez MD [address] [facility] [address] [place] [address] Nonspecific (abnormal) findings on radiological and other examination of skull and head (Primary Dx) Social History Tobacco Use Types Packs/Day Years Used Date Smoking Tobacco: Never Assessed Comments Unknown Sex and Gender Information Value Date Recorded Sex Assigned at Not on file Legal Sex Female 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
--- OUTSIDE RECORDS SUMMARY | 2024-07-28 19:10 | XMS_ITS | Encounter Summary ---
Author Organization [employer] Address [address] [place] [address] Care Team Providers Care Health Unit Coordinator Name Role Phone Gómez Raymundo MD Primary Care Provider +1- [phone] Encounter Details Date Type Department Care Team (Late st Contact Info) Description 12/24/2006 Outpatient Historical [facility] GI LAB Marco Antonio Becerra MD [address] [place] [address] [address] [place] [phone] Heartburn (Primary Dx) Social History Tobacco Use Types Packs/Day Years Used Date Smoking Tobacco: Never Assessed Comments Unknown Sex and Gender Information Value Date Recorded Sex Assigned at Not on file Legal Sex Female 3:35 AM SLASHER Gender Identity Not on file Sexual Orientation Not on file documented as of this encounter Plan of Treatment Not on file documented as of this encounter Visit Diagnoses Diagnosis Heartburn- Primary documented in this encounter Care Teams Health Unit Coordinator Relationship Specialty Start Date End Date Gómez Raymundo MD [address] [place] [address] [address] [place] [address] PCP - General 11/17/00 documented as of this encounter
--- OUTSIDE RECORDS SUMMARY | 2024-07-28 19:10 | XMS_ITS | Encounter Summary ---
Author Organization [employer] Address [address] [place] [address] Care Team Providers Care Credit Director Name Role Phone Gómez Raymundo MD Primary Care Provider +1- [phone] Encounter Details Date Type Department Care Team (Late st Contact Info) Description 12/24/2003 Outpatient Historical [facility] IMG-HOSP Marco Antonio Becerra MD [address] [place] [address] [address] [place] [address] ABNORMAL FINDINGS-GI TRACT (Primary Dx) Social History Tobacco Use Types Packs/Day Years Used Date Smoking Tobacco: Never Assessed Comments Unknown Sex and Gender Information Value Date Recorded Sex Assigned at Not on file Legal Sex Female 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
--- OUTSIDE RECORDS SUMMARY | 2024-07-28 19:10 | XMS_ITS | Encounter Summary ---
Author Organization [employer] Address [address] [place] [address] Care Team Providers Care Assistant Sales Director Name Role Phone Gómez Raymundo MD Primary Care Provider +1- [phone] Encounter Details Date Type Department Care Team (Late st Contact Info) Description 06/08/2000 Outpatient Historical Division of Neurology [address] [address] Caden Suarez MD [address] [facility] [address] [place] [address] Social History Tobacco Use Types Packs/Day Years Used Date Smoking Tobacco: Never Assessed Comments Unknown Sex and Gender Information Value Date Recorded Sex Assigned at Not on file Legal Sex Female 3:35 AM DIRECTOR OF CARDIOPULMONARY SERVICES Gender Identity Not on file Sexual Orientation Not on file documented as of this encounter Plan of Treatment Not on file documented as of this encounter Visit Diagnoses Not on filedocumented in this encounter Care Teams Assistant Sales Director Relationship Specialty Start Date End Date Gómez Raymundo MD [address] [place] [address] [address] [place] [address] PCP - General 11/17/00 documented as of this encounter
--- OUTSIDE RECORDS SUMMARY | 2024-07-28 19:10 | XMS_ITS | Encounter Summary ---
Author Organization [employer] Address [address] [place] [address] Care Team Providers Care Outpatient Physical Therapist Assistant Name Role Phone Gómez Raymundo MD Primary Care Provider +1- [phone] Encounter Details Date Type Department Care Team (Late st Contact Info) Description 12/22/2003 Outpatient Historical [facility] Marco Antonio Becerra MD [address] [place] [address] [address] [place] [id number] ANAL & RECTAL POLYP (Primary Dx) Social History Tobacco Use Types Packs/Day Years Used Date Smoking Tobacco: Never Assessed Comments Unknown Sex and Gender Information Value Date Recorded Sex Assigned at Not on file Legal Sex Female 3:35 AM TOSSER Gender Identity Not on file Sexual Orientation Not on file documented as of this encounter Plan of Treatment Not on file documented as of this encounter Visit Diagnoses Diagnosis Anal and rectal polyp- Primary documented in this encounter Care Teams Outpatient Physical Therapist Assistant Relationship Specialty Start Date End Date Gómez Raymundo MD [address] [place] [address] [address] [place] [address] PCP - General 11/17/00 documented as of this encounter
--- OUTSIDE RECORDS SUMMARY | 2024-07-28 19:10 | XMS_ITS | Encounter Summary ---
Author Organization [facility] Healthcare Address [address] [place] [address] Care Team Providers Care Pigskin Trimmer Name Role Phone Terese Garcia MD Primary Care Provider Kt Carmona MD Unavailable [phone] West Saenz MD Unavailable [phone] Reason for Visit * Reason Onset Date Comments Flu Symptoms 07/28/2024 Cough 07/28/2024 Encounter Details Date Type Department Care Team (Late st Contact Info) Description 07/28/2024 Nurse Triage [facility] Primary Care [address] [place] [address] Terese Garcia MD [address] [place] [address] Social History Tobacco Use Types Packs/Day Years Used Date Smoking Tobacco: Never Passive Smoke Exposure: Never Smokeless Tobacco: Never Alcohol Use Standard Drinks/Week Comments Yes 0 (1 standard drink = 0.6 oz pur e alcohol) OASIS D0700: Social Isolation Answer Da te Recorded Frequency of experiencing loneliness or isolatio n Never 01/31/2024 [facility] Utilities Answer Date Recorded In the past 12 months has [employer] electric, gas, oil, or water company threatened [...] place to sleep or slept in a jail (including now)? No 07/17/2023 Personal Safety Answer Date Recorded Have you ever been in or are you currently in a harmful physical or emotional relationship or is someone making you feel afraid or unsafe? Denies 01/18/2024 Comments No Sex and Gender Information Value Date Recorded Sex Assigned at Not on file Legal Sex Female 4:53 PM MECHANICAL REPAIR WORKER Gender Identity Female 12/08/2020 2:25 PM CDT [...] the triager Protocols used: Influenza (Flu) - [id number]-[id number]-QT ANICAL REPAIR WORKER * Telephone Encounter - Zahra Vernon RN - 07/28/2024 11:54 AM CST Regarding: cough, shortness of breath, patient is positive for Flu and bronchitis ----- Message from Agatha Story sent at 07/28/2024 11:50 AM MECHANICAL REPAIR WORKER ----- Symptom Based Call Chief Complaint(s): cough, [...] message need to be routed? Yes-Action Needed ANICAL REPAIR WORKER documented in this encounter Plan of Treatment Not on file documented as of this encounter Visit Diagnoses Not on filedocumented in this encounter Care Teams Pigskin Trimmer Relationship Specialty Start Date End Date Terese Garcia MD PCP - General Internal Medicine 04/03/19 Kt Carmona MD Consulting Physician Colon and Rectal Surgery 07/20/23 West Saenz MD [address] [facility] [address] [place] [address] Consulting Physician Gastroenterology 07/20/23 documented as of this encounter
--- OUTSIDE RECORDS SUMMARY | 2024-07-28 19:10 | XMS_ITS | Encounter Summary ---
Author Organization [employer] Address [address] [place] [address] Care Team Providers Care Retail Gift Card Merchandising Name Role Phone Gómez Raymundo MD Primary Care Provider [phone]- [phone] Encounter Details Date Type Department Care Team (Late st Contact Info) Description 10/31/2004 Outpatient Historical Division of Neurology 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
--- OUTSIDE RECORDS SUMMARY | 2024-07-28 19:10 | XMS_ITS | Encounter Summary ---
Author Organization [employer] Address [address] [place] [address] Care Team Providers Care Car Audio Installer Name Role Phone Gómez Raymundo MD Primary Care Provider [phone]- [phone] Encounter Details Date Type Department Care Team (Late st Contact Info) Description 10/14/2004 Outpatient Historical [facility] MRI DEPT Caden Suarez MD [address] [facility] [address] [place] [phone] BRAIN CONDITIONS NEC (Primary Dx) Social History Tobacco Use Types Packs/Day Years Used Date Smoking Tobacco: Never Assessed Comments Unknown Sex and Gender Information Value Date Recorded Sex Assigned at Not on file Legal Sex Female 3:35 AM COAT ROOM 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
--- OUTSIDE RECORDS SUMMARY | 2024-07-28 19:10 | XMS_ITS | Encounter Summary ---
Author Organization [employer] Address [address] [place] [address] Care Team Providers Care Ed Teacher Name Role Phone Gómez Raymundo MD Primary Care Provider [phone]- [phone] Encounter Details Date Type Department Care Team (Late st Contact Info) Description 02/21/2007 Outpatient Historical Division of Neurology 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
--- OUTSIDE RECORDS SUMMARY | 2024-07-28 19:10 | XMS_ITS | Encounter Summary ---
Author Organization [employer] Address [address] [place] [address] Care Team Providers Care Java Lead Developer Name Role Phone Gómez Raymundo MD Primary Care Provider [phone]- [phone] Encounter Details Date Type Department Care Team (Late st Contact Info) Description 05/21/2001 Outpatient Historical Division of Neurology [address] [address] Caden Suarez MD [address] [facility] [address] [place] [address] Social History Tobacco Use Types Packs/Day Years Used Date Smoking Tobacco: Never Assessed Comments Unknown Sex and Gender Information Value Date Recorded Sex Assigned at Not on file Legal Sex Female 3:35 AM NUTRITIONAL SERVICES COOK Gender Identity Not on file Sexual Orientation Not on file documented as of this encounter Plan of Treatment Not on file documented as of this encounter Visit Diagnoses Not on filedocumented in this encounter Care Teams Java Lead Developer Relationship Specialty Start Date End Date Gómez Raymundo MD [address] [place] [address] [address] [place] [address] PCP - General 11/17/00 documented as of this encounter
--- OUTSIDE RECORDS SUMMARY | 2024-07-28 19:10 | XMS_ITS | Encounter Summary ---
Author Organization [facility] Healthcare Address [address] [place] [address] Care Team Providers Care Deputy City Clerk Name Role Phone Terese Garcia MD Primary Care Provider Kt Carmona MD Unavailable [phone] West Saenz MD Unavailable [phone] Encounter Details Date Type Department Care Team (Late st Contact Info) Description 07/28/2024 1:35 PM NIGHT BAKER - 07/28/2024 2:40 PM [facility] Emergency Department [address] [place] [id number] Discharge Disposition: Left without being seen Social History Tobacco Use Types Packs/Day Years Used Date Smoking Tobacco: Never Passive Smoke Exposure: Never Smokeless Tobacco: Never Alcohol Use Standard Drinks/Week Comments Yes 0 (1 standard drink = 0.6 oz pur e alcohol) OASIS D0700: Social Isolation Answer Da te Recorded Frequency of experiencing loneliness or isolatio n Never 01/31/2024 [facility] Utilities Answer Date Recorded In the past 12 months has [employer], gas, oil, or water [employer] threatened to shut off services in your [...] place to sleep or slept in a residential (including now)? No 07/17/2023 Personal Safety Answer Date Recorded Have you ever been in or are you currently in a harmful physical or emotional relationship or is someone making you feel afraid or unsafe? Denies 01/18/2024 Comments No Sex and Gender Information Value Date Recorded Sex Assigned at Not on file Legal Sex Female 4:53 PM NIGHT BAKER Gender Identity Female 12/08/2020 2:25 PM CDT Sexual Orientation Straight 12/08/2020 2: 25 PM CDT documented as of this encounter Medications at Time of Discharge acetaminophen (TYLENOL) 325 mg tabletIndications:i nfusion reaction prophylaxis Take 2 tablets (650 mg total) by mouth plant operations worker Please provide 650mg of acetaminophen by mouth [...] 1 tablet/capsule (25 mg total) by mouth plant operations worker Please provide 25mg of diphenhydramine by mouth [...] on filedocumented in this encounter Care Teams Deputy City Clerk Relationship Specialty Start Date End Date Terese Garcia MD PCP - General Internal Medicine 04/03/19 Kt Carmona MD Consulting Physician Colon and Rectal Surgery 07/20/23 West Saenz MD [address] [facility] [address] [place] [address] Consulting Physician Gastroenterology 07/20/23 documented as of this encounter
--- OUTSIDE RECORDS SUMMARY | 2024-07-28 19:10 | XMS_ITS | Encounter Summary ---
Author Organization [employer] Address [address] [place] [address] Care Team Providers Care Lawn Mower Operator Name Role Phone Gómez Raymundo MD Primary Care Provider [phone]- [phone] Encounter Details Date Type Department Care Team (Late st Contact Info) Description 09/23/2002 Outpatient Historical [facility] MRI DEPT Caden Suarez MD [address] [facility] [address] [place] [phone] BRAIN CONDITIONS NEC (Primary Dx) Social History Tobacco Use Types Packs/Day Years Used Date Smoking Tobacco: Never Assessed Comments Unknown Sex and Gender Information Value Date Recorded Sex Assigned at Not on file Legal Sex Female 3:35 AM WEIGHT REDUCING TECHNICIAN Gender Identity Not on file Sexual Orientation Not on file documented as of this encounter Plan of Treatment Not on file documented as of this encounter Visit Diagnoses Diagnosis Brain conditions NEC- Primary Other conditions of brain documented in this encounter Care Teams Lawn Mower Operator Relationship Specialty Start Date End Date Gómez Raymundo MD [address] [facility] [address] [place] [address] PCP - General 11/17/00 documented as of this encounter
--- OUTSIDE RECORDS SUMMARY | 2024-07-28 19:10 | XMS_ITS | Encounter Summary ---
Author Organization [facility] Address 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
--- OUTSIDE RECORDS SUMMARY | 2024-07-28 19:10 | XMS_ITS | Clinical Summary ---
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
--- OUTSIDE RECORDS SUMMARY | 2024-07-28 19:10 | XMS_ITS | Encounter Summary ---
Author Organization [employer] Address [address] [place] [address] Care Team Providers Care Chief Informatics Officer Name Role Phone Gómez Raymundo MD Primary Care Provider +1- [phone] Encounter Details Date Type Department Care Team (Late st Contact Info) Description 11/17/2000 Outpatient Historical [facility] MRI DEPT Caden Suarez MD [address] [facility] [address] [place] [phone] Benign neoplasm of brain (CMS/HCC) (Primary Dx) Social History Tobacco Use Types Packs/Day Years Used Date Smoking Tobacco: Never Assessed Comments Unknown Sex and Gender Information Value Date Recorded Sex Assigned at Not on file Legal Sex Female 3:35 AM 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
--- OUTSIDE RECORDS SUMMARY | 2024-07-28 19:10 | XMS_ITS | Encounter Summary ---
Author Organization [employer] Address [address] [place] [address] Care Team Providers Care Rice Drier Operator Name Role Phone Gómez Raymundo MD Primary Care Provider +1- [phone] Encounter Details Date Type Department Care Team (Late st Contact Info) Description 10/08/2002 Outpatient Historical Division of Neurology 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
--- OUTSIDE RECORDS SUMMARY | 2024-07-28 19:10 | XMS_ITS | Encounter Summary ---
Author Organization [employer] Address [address] [place] [address] Care Team Providers Care Phlebotomy Program Coordinator Name Role Phone Gómez Raymundo MD Primary Care Provider +1- [phone] Encounter Details Date Type Department Care Team (Late st Contact Info) Description 06/23/1999 Outpatient Historical Division of Neurology [address] [address] Caden Suarez MD [address] 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
--- OUTSIDE RECORDS SUMMARY | 2024-07-28 19:10 | XMS_ITS | Encounter Summary ---
Author Organization [employer] Address [address] [place] [address] Care Team Providers Care Channel Installer Name Role Phone Gómez Raymundo MD Primary Care Provider +1- [phone] Encounter Details Date Type Department Care Team (Late st Contact Info) Description 03/07/2002 Outpatient Historical Division of Neurology 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
--- OUTSIDE RECORDS SUMMARY | 2024-07-28 19:11 | XMS_ITS | Continuity of Care Document ---
Author Organization [facility] Address [address] [place] [address] Phone Care Team Providers Care Quality Assurance Associate Name Role Phone Chavarria OD, Alexander Unavailable Unavailable Advance Directives Directive Yes / No Effective Date File Name No Information Encounters Encounter Description Practice Location Reason(s) For Visit Diagnoses Date Provider Providers Copied on Encounter [facility], [address] [place], [place], [id number], [place] tel:[phone] [facility] No Information 4-200 0 Chavarria OD Alexander. [address], [place], [address], [place]. tel:[phone] Family History Family Member Type Diagnosis Age At Onset No Information Payers Payer name Insurance type Covered libertarian ID Authoriza tion(s) No Information Social History [...]
--- OUTSIDE RECORDS SUMMARY | 2024-07-28 19:11 | XMS_ITS | Referral Summary ---
Author Organization [facility] Address [facility] [place] [address] Care Team Providers Care Instructional Design Specialist Name Role Phone Terese Garcia MD Primary Care Provider Kt Carmona MD Unavailable [phone] [address] Saenz MD Unavailable [phone] Encounters Date Type Department Care Team Description 07/28/2024 1:35 PM INCOME TAX PREPARER - 07/28/2024 2:40 PM [facility] Emergency Department [address] [place] [address] Discharge Disposition: Left without being seen 07/28/2024 Nurse Triage [facility] Care [address] [place] [phone] Terese Garcia MD 07/26/2024 11:00 AM INCOME TAX PREPARER Office Visit [facility] Care at [address] [phone] Lj Bruce NP Acute lower respiratory infection (Primary Dx); Acute cough 07/18/2024 1:30 PM INCOME TAX PREPARER Office Visit [facility] Care [address] [place] [phone] Mehochko, Lillie, INVESTIGATIONS CHIEF Acute cough (Primary Dx); Influenza A; Class 1 obesity due to excess calories with serious comorbidity and body mass index (BMI) of 31.0 to 31.9 in adult; Primary hypertension; Crohn's disease of small intestine without complication (CMS/HCC) (HCC); Nausea 07/15/2024 9:00 AM INCOME TAX PREPARER Home Care Visit [place] [address] [address] [place] [address] Rubi Chaudhry RN SN INFUSION TREATMENT ROOM 06/17/2024 11:50 AM INCOME TAX PREPARER - 06/17/2024 11:59 PM INCOME TAX PREPARER Hospital Encounter [facility] [address] [place] [address] Lung nodule Discharge Disposition: Discharge to home or self care 06/03/2024 Telephone [facility] Gastroenterology [address] [place] [address] 12th [place] [address] [place] [address] Lillie Padilla LPN 06/02/2024 Orders Only [facility] [address] [place] [address] Anita Kelley NP PSC (primary sclerosing cholangitis) (Primary Dx) 06/02/2024 1:15 PM INCOME TAX PREPARER - 06/02/2024 11:59 PM INCOME TAX PREPARER Hospital Encounter [facility] [address] [place] [address] Elevated serum alkaline phosphatase level; PSC (primary sclerosing cholangitis) Discharge Disposition: Discharge to home or self care 05/28/2024 10:00 AM INCOME TAX PREPARER Office Visit [facility] Gastroenterology [facility] Medical Office Building [address] [place] [phone] [place] Saenz MD High risk medications (not anticoagulants) long-term use (Primary Dx); PSC (primary sclerosing cholangitis); Crohn's disease of colon with intestinal obstruction (CMS/HCC) (HCC); Crohn's disease of small intestine with intestinal obstruction (CMS/HCC) (HCC) 05/22/2024 Telephone [facility] Gastroenterology [address] [place] [address] 12th [place] [address] [place] [address] Lillie Padilla LPN 05/22/2024 Orders Only [facility] [address] [place] [address] Anita Kelley NP PSC (primary sclerosing cholangitis) (Primary Dx) 05/19/2024 3:15 PM INCOME TAX PREPARER Lab [facility] [address] [place] [address] PSC (primary sclerosing cholangitis) 05/19/2024 3:00 PM INCOME TAX PREPARER Procedure visit [facility] Gastroenterology [address] [place] [address] Medical Office Building [address], [address] [place] [phone] PSC (primary sclerosing cholangitis) 05/19/2024 2:40 PM INCOME TAX PREPARER Office Visit [facility] Gastroenterology [address] [place] [address] Medical Office Building [address], [address] [place] [phone] Anita Kelley NP PSC (primary sclerosing cholangitis) (Primary Dx) 05/16/2024 9:15 AM INCOME TAX PREPARER - 05/16/2024 11:59 PM INCOME TAX PREPARER Hospital Encounter [facility] [address] [place] [address] Discharge Disposition: Discharge to home or self care 05/16/2024 9:00 AM INCOME TAX PREPARER Home Care Visit [place] [address] [address] [place] [address] Jett Gutierrez RN SN INFUSION TREATMENT ROOM 05/14/2024 2:30 PM INCOME TAX PREPARER Office Visit [facility] Con[facility] Care at [address] [phone] Lj Bruce NP Common cold (Primary Dx) 04/30/2024 Telephone [facility] Gastroenterology [address] [place] [address] Advanced Medicine 12th [place] [address] [place] [address] Camilla Ghotra CMA from Last 3 Months [...] weeks 5 mg/kg dose. Site of Care: [facility] Home Care ([facility] order in [facility] under 'Procedures' tab). Active acetaminophen (TYLENOL) 325 mg tabletIndications :infusion reaction prophylaxis Take 2 tablets (650 mg total) by mouth universal branch consultant Please provide 650mg of acetaminophen by mouth 30 minutes prior to Inflectra infusion. Active diphenhydrAMINE 25 mg capsuleIndication s:PREMED Take 1 tablet/capsule (25 mg total) by mouth universal branch consultant Please provide 25mg of diphenhydramine by mouth [...] 08/01/2023 Assessment & Plan (05/28/2024 10:19 AM INCOME TAX PREPARER): All immunosuppressants increase the risk of infection [...] and in addition should follow with a hardware engineering manager for skin cancer screening. There is [...] and in addition should follow with a hardware engineering manager for skin cancer screening. There is a small risk of heart failure so any new HF symptoms would prompt an evaluation and likely discontinuation of therapy. Assessment & Plan (08/01/2023 2:49 PM INCOME TAX PREPARER): All immunosuppressants increase the risk of infection [...] and in addition should follow with a hardware engineering manager for skin cancer screening. There is a small risk of heart failure so any new HF symptoms would prompt an evaluation and likely discontinuation of therapy. Healthcare maintenance 08/01/2023 Overview (08/01/2023): Immunizations: Influenza annual Pneumococcus recommend PCV 20 Zoster recommend HBV immune Covid vaccinated Cervical cancer screening: routine follow up with home sales service professional Skin cancer screening: consider referral to dermatology to discuss screening strategy Bone health: DEXA: osteopenia in 2020. Ocnt Ca and vit D CRC screening: annual d/t PSC Assessment & Plan (11/28/2023 10:18 AM CDT): PCV today Follows with bone health for osteopenia Assessment & Plan (08/01/2023 2:54 PM INCOME TAX PREPARER): Annual c scope d/t psc Crohn's disease of colon wit h intestinal obstruction (CMS/HCC) 07/16/2023 Assessment & Plan (07/18/2023 1:02 PM INCOME TAX PREPARER): D/w CRS today - will transfer to CRS service with plan for surgical treatment on Sunday - holding steroids per GI Klebsiella pneumoniae sepsis (CMS/HCC) Assessment & Plan (07/18/2023 1:02 PM INCOME TAX PREPARER): Likely related to gut translocation in the setting of severe crohns inflammation and steroids - day 2 of abx; would treat for 7 days total based upon susceptibility data Fever 07/10/2023 Assessment & Plan (07/11/2023 11:18 AM INCOME TAX PREPARER): -Febrile to 102F this admit -Infectious workup: [...] 07/09/2023 Assessment & Plan (05/28/2024 10:20 AM INCOME TAX PREPARER): Needs annual c scope Assessment & Plan (05/19/2024 3:02 PM INCOME TAX PREPARER): Ms. Martinez presents for follow up for [...] risk. Assessment & Plan (08/01/2023 2:50 PM INCOME TAX PREPARER): Follows with liver. Needs annual c scope for dysplasia screening, though has not had colonic involvement. Assessment & Plan (07/10/2023 4:06 PM INCOME TAX PREPARER): Patient has been getting worked up for elevated liver enzymes outpatient. 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 -continue to follow up outpatient with GI with recommendations for annual colonoscopy -follow-up with CRS and GI Hypertension 07/09/2023 Assessment & Plan (07/10/2023 4:07 PM INCOME TAX PREPARER): On hydrochlorothiazide 25 mg daily Holding antihypertensive meds-BP stable without HCTZ for now Crohn's colitis, unspecified complication 2023 Assessment & Plan (07/11/2023 11:17 AM INCOME TAX PREPARER): Patient was diagnosed with Crohn's in 2003. [...] elevated Assessment & Plan (05/21/2023 12:58 PM INCOME TAX PREPARER): Mrs. Martinez presents for evaluation of elevated [...] remission Assessment & Plan (05/28/2024 9:13 PM INCOME TAX PREPARER): Colonoscopy showed mucosal remission on infliximab. Continue [...] mos. Assessment & Plan (08/01/2023 2:49 PM INCOME TAX PREPARER): Severe stricturing ileal Crohn's with multiple admissions [...] PSC Assessment & Plan (05/21/2023 1:40 PM INCOME TAX PREPARER): Patient follows with Dr. Merchant (dx 2003). Her current regimen includes Infliximab infusion every 8 weeks, Sulfasalazine 1000 mg daily. Last colonoscopy was in 2020 which revealed tight TI stricture, not able to be traversed. She is scheduled to see INVESTIGATIONS CHIEF provider this month with transition of care to Dr. Messina. 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 Assessment & Plan (07/10/2023 4:06 PM INCOME TAX PREPARER): Was diagnosed 22 years ago and started with seizures Is following up with [facility] Continue carbamazepine (liquid substituted for pills), pt [...] experiencing loneliness or isolatio n Never 01/31/2024 [facility] Utilities Answer Date Recorded In the past 12 months has [employer], gas, oil, or water [employer] threatened to shut off services in your [...] place to sleep or slept in a detention (including now)? No 07/17/2023 Personal Safety Answer Date Recorded Have you ever been in or are you currently in a harmful physical or emotional relationship or is someone making you feel afraid or unsafe? Denies 01/18/2024 Comments No Sex and Gender Information Value Date Recorded Sex Assigned at Not on file Legal Sex Female 4:53 PM INCOME TAX PREPARER Gender Identity Female 12/08/2020 2:25 PM CDT Sexual Orientation Straight 12/08/2020 2: 25 PM CDT Last Filed Vital Signs Vital Sign Reading Time Taken Comments Blood Pressure 150/88 07/26/2024 11:03 AM INCOME TAX PREPARER Pulse 104 07/26/2024 11:15 AM INCOME TAX PREPARER Temperature 36.6 C (97.8 F) 07/26/2024 11:03 AM INCOME TAX PREPARER Respiratory Rate 20 07/26/2024 11:03 AM INCOME TAX PREPARER Oxygen Saturation 95% 07/26/2024 11:15 AM INCOME TAX PREPARER Inhaled Oxygen Concentration - - Weight 84.8 kg (187 lb) 07/26/2024 11:03 AM INCOME TAX PREPARER Height 165.1 cm (5' 5 ) 07/18/2024 1:23 PM INCOME TAX PREPARER Body Mass Index 31.12 07/18/2024 1:23 PM INCOME TAX PREPARER Plan of Treatment Not on file Procedures Procedure Name Priority Date/Time Associated Diagnosis Comments POC INFLUENZA A/B, COVID-19 ANTIGEN Routine 07/18/2024 1:29 PM INCOME TAX PREPARER Acute cough CT CHEST WO CONTRAST Schedule Routine, Read Routine (OP Routine) 06/17/2024 12:00 PM INCOME TAX PREPARER Lung nodule MRI ABDOMEN MRCP W WO CONTRAST Schedule Routine, Read Routine (OP Routine) 06/02/2024 3:08 PM INCOME TAX PREPARER Elevated serum alkaline phosphatase level PSC (primary sclerosing cholangitis) EGFR Routine 05/19/2024 3:33 PM INCOME TAX PREPARER PSC (primary sclerosing cholangitis) DIFFERENTIAL AUTO Routine 05/19/2024 3:3 3 PM INCOME TAX PREPARER PSC (primary sclerosing cholangitis) IGG Routine 05/19/2024 3:33 PM INCOME TAX PREPARER PSC (primary sclerosing cholangitis) GAMMA GT Routine 05/19/2024 3:33 PM INCOME TAX PREPARER PSC (primary sclerosing cholangitis) COMPREHENSIVE METABOLIC PANEL Routine 05/19/2024 3:33 PM INCOME TAX PREPARER PSC (primary sclerosing cholangitis) CBC WITH AUTO DIFFERENTIAL Routine 05/19/2024 3:33 PM INCOME TAX PREPARER PSC (primary sclerosing cholangitis) CANCER ANTIGEN 19-9 Routine 05/19/2024 3 :33 PM INCOME TAX PREPARER PSC (primary sclerosing cholangitis) GTNNW-1-PHEKLHRIDOL, TUMOR MARKER Routine 05/19/2024 3:33 PM INCOME TAX PREPARER PSC (primary sclerosing cholangitis) VITAMIN D 25 HYDROXY Routine 05/19/2024 3:33 PM INCOME TAX PREPARER PSC (primary sclerosing cholangitis) VITAMIN A Routine 05/19/2024 3:33 PM INCOME TAX PREPARER PSC (primary sclerosing cholangitis) VITAMIN E Routine 05/19/2024 3:33 PM INCOME TAX PREPARER PSC (primary sclerosing cholangitis) LIVER ELASTOGRAPHY W/O IMAGING W/I&R Routine 05/19/2024 3:29 PM INCOME TAX PREPARER PSC (primary sclerosing cholangitis) EGFR Routine 05/16/2024 9:15 AM INCOME TAX PREPARER DIFFERENTIAL AUTO Routine 05/16/2024 9:1 5 AM INCOME TAX PREPARER CRP (ACUTE PHASE) Routine 05/16/2024 9:1 5 AM INCOME TAX PREPARER CBC WITH AUTO DIFFERENTIAL Routine 05/16/2024 9:15 AM INCOME TAX PREPARER GLUCOSE, RANDOM (OUTREACH) Routine 05/16/2024 9:15 AM INCOME TAX PREPARER COMPREHENSIVE METABOLIC PANEL WITHOUT GLUCOSE (OUTREACH) Routine 05/16/2024 9:15 AM INCOME TAX PREPARER POC INFLUENZA A/B, COVID-19 ANTIGEN Routine 05/14/2024 3:04 PM INCOME TAX PREPARER Common cold POCT RAPID STREP Routine 05/14/2024 2:53 PM INCOME TAX PREPARER Common cold COLONOSCOPY 01/18/2024 7:48 AM CDT DIAGNOSTIC MAMMOGRAM BILATERAL W CHRISTIAN Schedule Routine, Read Routine (OP Routine) 01/09/2024 2:53 PM CDT History of abnormal mammogram Mass of left breast, unspecified quadrant HEPATITIS C ANTIBODY Routine 05/21/2023 10:28 AM INCOME TAX PREPARER Elevated serum alkaline phosphatase level HM PAP SMEAR WITH HPV Routine 12/06/2022 from Last 3 Months or Most Recently Relevant to Health Maintenance Results * (ABNORMAL) POC Influenza A/B, COVID-19 antigen (07/18/2024 1:29 PM INCOME TAX PREPARER) Influenza A Ag, POC Positive(A) Negative Influenza B Ag, POC Negative Negative COVID-19 Ag POC Presumptive Negative Presumptive Negative, Invalid Nasal 07/18/2024 1:29 PM INCOME TAX PREPARER Lillie Mata NP POINT OF CARE TEST ORDERABLES Final Result * CT Chest WO Contrast (06/17/2024 12:00 PM INCOME TAX PREPARER) Anatomical Region Laterality Modality Body N/A Computed Tomogra phy 06/22/2024 7:35 PM INCOME TAX PREPARER Narrative 06/22/2024 7:39 PM INCOME TAX PREPARER EXAM DESCRIPTION: CT CHEST WO CONTRAST REASON [...] Donna Poe M.D. FT: FT Report ID: [id number] Reading Location: [id number] Procedure Note Donna Camacho MD - 06/22/2024 [...] Donna Poe M.D. FT: FT Report ID: [id number] Reading Location: [id number] Lillie Mata NIKKO IM CT PROCEDURES Final Resul t * MRI Abdomen MRCP W WO Contrast (06/02/2024 3:08 PM INCOME TAX PREPARER) Anatomical Region Laterality Modality Body N/A Magnetic Resonan ce 06/02/2024 3:45 PM INCOME TAX PREPARER Impressions 06/02/2024 4:27 PM INCOME TAX PREPARER Unchanged mild multifocal intrahepatic stricturing and dilatation compatible with primary sclerosing cholangitis. Dictated by: Arya Lorenzo MD The radiology attending physician has personally reviewed this study, and had reviewed and/or edited this written report and agrees with it. Electronically signed by: Johnathan Mcadams M.D. Narrative 06/02/2024 4:27 PM INCOME TAX PREPARER EXAMINATION: 1. MAGNETIC RESONANCE IMAGING OF THE [...] R esult * eGFR (05/19/2024 3:33 PM INCOME TAX PREPARER) eGFR >90 >=60 mL/min/1. 73 m2 Comment: [...] last reviewed 2021. Blood 05/19/2024 3:33 PM INCOME TAX PREPARER 05/19/2024 3:59 PM INCOME TAX PREPARER us Anita Ligia Allie EL LAB BLOOD ORDERABLES Final Result JONATHAN GROSS [id number] [facility]. Department [place] [address] * Differential, auto (05/19/2024 3:33 PM INCOME TAX PREPARER) Neutrophil abs 3.3 1.5 - 6.5 K/cumm [...] revised on 2017. Eosinophil pct 3.5 % [facility] Comment: Interpretive Data Percent cell count reference ranges are not reported, since discordance with absolute values may lead to misinterpretation of CBC data. Current Interpretive Data was last revised on 2017. Basophil pct 0.4 % [facility] Comment: Interpretive Data Percent cell count reference ranges are not reported, since discordance with absolute values may lead to misinterpretation of CBC data. Current Interpretive Data was last revised on 2017. Blood 05/19/2024 3:33 PM INCOME TAX PREPARER 05/19/2024 3:59 PM INCOME TAX PREPARER us Anita Kelley NP LAB BLOOD ORDERABLES Final Result [facility] [address] [facility]. Department [place] [address] * CBC with auto differential (05/19/2024 3:33 PM INCOME TAX PREPARER) WBC 6.8 3.8 - 9.9 K/cumm Hgb 13.3 11.9 - 15.5 g/dL [facility] Hct 39.7 35.6 - 45.5 % [facility] Plt 230 150 - 400 K/cumm [facility] MPV 11.4 9.1 - 12.3 fL [facility] RBC 4.41 3.90 - 5.20 M/cumm [facility] MCV 90.0 81.3 - 96.4 fL [facility] MCH 30.2 27.1 - 33.3 pg [facility] MCHC 33.5 32.3 - 35.7 g/dL [facility] RDW CV 12.3 11.1 - 14.9 % [facility] RDW SD 40.4 35.7 - 48.1 fL [facility] NRBC abs 0.00 0.00 - 0.01 K/cumm [facility] Blood 05/19/2024 3:33 PM INCOME TAX PREPARER 05/19/2024 3:59 PM INCOME TAX PREPARER Result [facility] Anita Kelley INVESTIGATIONS CHIEF LAB BLOOD ORDERABLES Final Result Performing Organization Address [facility] Co de Phone Number JONATHAN BJWCH [address] [address] [employer] [facility] [employer] [place], [place] [id number] * Cancer antigen 19-9 (05/19/2024 3:33 PM INCOME TAX PREPARER) Pathologist [facility] [place] 19-9 ag 4.5 0.0 - 35.0 units/mL Comment: Interpretive Data The [employer] CA 19-9 assay procedure was used. Results from different manufacturers or methods may not be comparable. Serial testing should be performed using the same method. Testing performed by: [facility], [address] [place] [address]., [id number] Blood 05/19/2024 3:33 PM INCOME TAX PREPARER 05/19/2024 6:22 PM INCOME TAX PREPARER Result [facility] Anita Kelley INVESTIGATIONS CHIEF LAB BLOOD ORDERABLES Final Result Performing Organization Address [facility] de Phone Number JONATHAN BJWCH [address] [address] [employer] [facility] [place] [address] * Vitamin A (05/19/2024 3:33 PM INCOME TAX PREPARER) [facility] Vitamin A 69.2 32.5 - 78.0 mcg/dL [facility] Comment: ADDITIONAL INFORMATION This test was developed and its performance characteristics determined by [facility] in a manner consistent with CLIA requirements. This test has not been cleared or approved by the U.S. Food and Drug Administration. Test Performed by: [facility] - [address] [address] [employer] Vehicle Operator: Reny Srivastava Ph.D.; CLIA# [id number] Blood 05/19/2024 3:33 PM INCOME TAX PREPARER 05/19/2024 3:59 PM INCOME TAX PREPARER Result [facility] Anita Kelley INVESTIGATIONS CHIEF LAB BLOOD ORDERABLES Final Result Performing Organization Address [facility] de Phone Number JONATHAN RAMIREZWCH [address] [address] [employer] [place], [place] [id number] [facility] * [id number], Tumor Marker (05/19/2024 3:33 PM INCOME TAX PREPARER) alpha Fetoprotein 2.3 <=8.3 ng/mL Comment: Interpretive [...] 2018;[id number] Hung Reyna et al. Clin Chem 2014;[id number]. Current interpretive data was last revised 2022. Testing performed by: [facility], [address] [place] [address], [place]., [address] Blood 05/19/2024 3:33 PM INCOME TAX PREPARER 05/19/2024 6:22 PM INCOME TAX PREPARER Anita Kelley INVESTIGATIONS CHIEF LAB BLOOD ORDERABLES Final Result Performing Organization Address [facility] Co de Phone Number JONATHAN RAMIREZWCH [address] [address] [employer] [place] [address] * (ABNORMAL) Vitamin D 25 hydroxy (05/19/2024 3:33 PM INCOME TAX PREPARER) Vitamin D 25-OH 93(H) 30 - 80 ng/mL Blood 05/19/2024 3:33 PM INCOME TAX PREPARER 05/19/2024 3:59 PM INCOME TAX PREPARER Anita Kelley INVESTIGATIONS CHIEF LAB BLOOD ORDERABLES Edite d Result - Final Performing Organization Address [facility] Co de Phone Number JONATHAN VILLASEÑOR [address] [address] [employer] [facility] [place] [address] * Vitamin E (05/19/2024 3:33 PM INCOME TAX PREPARER) [facility] Tocopherol (Vit E) 16.0 5.5 - 17.0 mg/L [facility] Comment: ADDITIONAL INFORMATION This test was developed and its performance characteristics determined by [facility] in a manner consistent with CLIA requirements. This test has not been cleared or approved by the U.S. Food and Drug Administration. Test Performed by: [place] [address] [employer] Operator: Reny Srivastava Ph.D.; CLIA# [id number] Blood 05/19/2024 3:33 PM INCOME TAX PREPARER 05/19/2024 3:59 PM INCOME TAX PREPARER Anita Kelley NP LAB BLOOD ORDERABLES Final Result Performing Organization Address [facility] de Phone Number JONATHAN GROSSCH [address] [address] [employer] Department [place] [address] [facility] * (ABNORMAL) Gamma GT (05/19/2024 3:33 PM INCOME TAX PREPARER) [facility] GGT 37(H) 5 - 35 Units/L Blood 05/19/2024 3:33 PM INCOME TAX PREPARER 05/19/2024 3:59 PM INCOME TAX PREPARER Result [facility] Anita Kelley NP LAB BLOOD ORDERABLES Edite d Result - Final Performing Organization Address [facility] Co de Phone Number JONATHAN BJWCH [address] [address] [employer] Department [employer] [place], [place] [id number] * IgG (05/19/2024 3:33 PM INCOME TAX PREPARER) Immunoglobulin G 1,306 700 - 1,600 mg/dL Comment:Testing performed by : [facility], [facility] [place], [place]., [address] Blood 05/19/2024 3:33 PM INCOME TAX PREPARER 05/19/2024 6:22 PM INCOME TAX PREPARER us Anita Kelley NP LAB BLOOD ORDERABLES Final Result [facility] [address] [facility]. Department [place] [address] * (ABNORMAL) Comprehensive metabolic panel (05/19/2024 3:33 PM INCOME TAX PREPARER) Sodium 139 135 - 145 mmol/L Potassium, pl 3.5 3.3 - 4.9 mmol/L [facility]ER [facility] Chloride 100 97 - 110 mmol/L [facility] CO2 29 22 - 32 mmol/L [facility] Anion gap 10 2 - 15 mmol/L [facility] BUN 15 6 - 25 mg/dL [facility] Creatinine 0.75 0.60 - 1.10 mg/dL [facility] Glucose 96 70 - 199 mg/dL [facility] Comment: Interpretive Data Fasting [...] Units/L [facility]ER B[facility] Blood 05/19/2024 3:33 PM INCOME TAX PREPARER 05/19/2024 3:59 PM INCOME TAX PREPARER Anita Kelley NP LAB BLOOD ORDERABLES Edite d Result - Final [facility] [address] [facility] System. Department [place] [address] * Liver Elastography w/o Imaging W/I&R -[facility] (All Locations) (05/19/2024 3:29 PMCST) Anatomical Region Laterality Modality Other Anita Kelley NP GI PROCEDURE ORDERABLES Fi nal Result * (ABNORMAL) Glucose, random (Outreach) (05/16/2024 9:15 AM INCOME TAX PREPARER) [facility] Signature Glucose 59(L) 70 - 199 mg/dL [...] last revised 2022. Blood 05/16/2024 9:15 AM INCOME TAX PREPARER 05/16/2024 12:25 PM INCOME TAX PREPARER West Saenz MD LAB BLOOD ORDERABLES Final Result JONATHAN [facility] Department [place] [address] * eGFR (05/16/2024 9:15 AM INCOME TAX PREPARER) [facility] eGFR >90 >=60 mL/min/1. 73 m2 Comment: [...] last reviewed 2021. Blood 05/16/2024 9:15 AM INCOME TAX PREPARER 05/16/2024 12:39 PM INCOME TAX PREPARER us West Saenz MD LAB BLOOD ORDERABLES Final Result JONATHAN [facility] Department [place] [address] * Differential, auto (05/16/2024 9:15 AM INCOME TAX PREPARER) Pathologist [facility] Neutrophil abs 2.4 1.5 - 6.5 K/cumm Imm gran abs 0.0 0.0 - 0.1 K/cumm [facility] Lymphocyte abs 1.7 0.8 - 3.3 K/cumm [facility] Monocyte abs 0.5 0.2 - 0.8 K/cumm [facility] Eosinophil abs 0.4 0.0 - 0.5 K/cumm [facility] Basophil abs 0.0 0.0 - 0.1 K/cumm [facility] Neutrophil pct 47.0 % [facility] Comment: Interpretive Data Percent cell count reference ranges are not reported, since discordance with absolute values may lead to misinterpretation of CBC data. Current Interpretive Data was last revised on 2017. Imm gran pct 0.2 % [facility] Comment: Interpretive Data Percent cell count reference ranges are not reported, since discordance with absolute values may lead to misinterpretation of CBC data. Current Interpretive Data was last revised on 2017. Lymphocyte pct 34.8 % [facility] Comment: Interpretive Data Percent cell count reference ranges are not reported, since discordance with absolute values may lead to misinterpretation of CBC data. Current Interpretive Data was last revised on 2017. Monocyte pct 9.0 % [facility] Comment: Interpretive Data Percent cell count reference ranges are not reported, since discordance with absolute values may lead to misinterpretation of CBC data. Current Interpretive Data was last revised on 2017. Eosinophil pct 8.2 % [facility] Comment: Interpretive Data Percent cell count reference ranges are not reported, since discordance with absolute values may lead to misinterpretation of CBC data. Current Interpretive Data was last revised on 2017. Basophil pct 0.8 % [facility] Comment: Interpretive Data Percent cell count reference ranges are not reported, since discordance with absolute values may lead to misinterpretation of CBC data. Current Interpretive Data was last revised on 2017. Blood 05/16/2024 9:15 AM INCOME TAX PREPARER 05/16/2024 12:25 PM INCOME TAX PREPARER us West Saenz MD LAB BLOOD ORDERABLES Final Result [facility] Department [place] [address] * (ABNORMAL) Comprehensive metabolic panel, without glucose (Outreach) (05/16/2024 9:15 AM INCOME TAX PREPARER) Sodium 142 135 - 145 mmol/L Potassium, pl 3.7 3.3 - 4.9 mmol/L [facility] Chloride 103 97 - 110 mmol/L [facility] CO2 27 22 - 32 mmol/L [facility] Anion gap 12 2 - 15 mmol/L [facility] BUN 10 6 - 25 mg/dL [facility] Creatinine 0.71 0.60 - 1.10 mg/dL [facility] Calcium 9.5 8.5 - 10.3 mg/dL [facility] Protein, pl 7.4 6.5 - 8.5 g/dL [facility] Albumin 4.4 3.5 - 5.0 g/dL [facility] Bilirubin, total 0.2 0.1 - 1.2 mg/dL [facility] Alk phos 237(H) 40 - 130 Units/L [facility] AST 26 10 - 45 Units/L [facility] ALT 31 7 - 45 Units/L [facility] Blood 05/16/2024 9:15 AM INCOME TAX PREPARER 05/16/2024 12:25 PM INCOME TAX PREPARER us West Saenz MD LAB BLOOD ORDERABLES Final Result [facility] Department [place] [address] * CBC with auto differential (05/16/2024 9:15 AM INCOME TAX PREPARER) WBC 5.0 3.8 - 9.9 K/cumm Hgb 13.5 11.9 - 15.5 g/dL [facility] Hct 40.8 35.6 - 45.5 % [facility] Plt 223 150 - 400 K/cumm [facility] MPV 12.1 9.1 - 12.3 fL [facility] RBC 4.56 3.90 - 5.20 M/cumm [facility] MCV 89.5 81.3 - 96.4 fL [facility] MCH 29.6 27.1 - 33.3 pg [facility] MCHC 33.1 32.3 - 35.7 g/dL [facility] RDW CV 12.4 11.1 - 14.9 % [facility] RDW SD 41.1 35.7 - 48.1 fL [facility] NRBC abs 0.00 0.00 - 0.01 K/cumm [facility] Blood 05/16/2024 9:15 AM INCOME TAX PREPARER 05/16/2024 12:25 PM INCOME TAX PREPARER West Saenz MD LAB BLOOD ORDERABLES Final Result Performing Organization Address [facility] Co de Phone Number [facility] [place] [address] * CRP (acute phase) (05/16/2024 9:15 AM INCOME TAX PREPARER) [facility] CRP 7.3 <=10.0 mg/L Blood 05/16/2024 9:15 AM INCOME TAX PREPARER 05/16/2024 12:25 PM INCOME TAX PREPARER West Saenz MD LAB BLOOD ORDERABLES Final Result Performing Organization Address [facility] de Phone Number [facility] [place] [address] * POC Influenza A/B, COVID-19 antigen (05/14/2024 3:04 PM INCOME TAX PREPARER) [facility] Influenza A Ag, POC Negative Negative [facility] Influenza B Ag, POC Negative Negative [facility] COVID-19 Ag POC Presumptive Negative Presumptive Negative, Invalid [facility] Nasopharyngeal 05/14/2024 3: 04 PM INCOME TAX PREPARER us Lj Bruce NP POINT OF CARE TEST ORDERABLES F inal Result Performing Organization Address [facility]/ZIP Co de Phone Number [facility] [address] [place] [address] * POCT rapid strep A (05/14/2024 2:53 PM INCOME TAX PREPARER) [facility] Rapid Strep A, POC Negative Negative Swab 05/14/2024 2:53 PM INCOME TAX PREPARER us Lj Bruce NP POINT OF CARE TEST ORDERABLES F inal Result * Colonoscopy (01/18/2024 7:48 AM CDT) Anatomical Region Laterality Modality Other Narrative Procedure Note West Saenz MD - 01/18/2024 7:48 AM CDT ENDOSCOPY LAB Patient Name: Linnea Martinez Procedure Date: 01/18/2024 7:48 AM Date of : 1975 Admit Type: Outpatient Age: 48 Gender: Female Attending MD: West Saenz M.D. Room: [facility] ENDOSCOPY ROOM 01 Note Status: Finalized [...] The scope was passed under direct vision.The [id number] was introduced through the anusand advanced to [...] business hours - Please call theNurse Coordinator: [phone]. After hours, evening, nights, weekends and holidays- Please call the hospital head operator at and ask for the GI fellow universal branch consultant. Electronically signed by West Saenz MD West [...] PM CDT EXAM: DIAGNOSTIC MAMMOGRAM BILATERAL W CHRISITAN, US BREAST LEFT LIMITED CLINICAL INDICATION: The patient is presenting for annual mammography. She is following up for evaluation of previously described probably benign findings in the left breast. TECHNIQUE: Bilateral full-field digital diagnostic mammography with computer aided detection. 3D tomosynthesis images were performed. Limited/targeted sonography of the left breast performed. COMPARISON: [id number] FINDINGS: There are scattered areas of fibroglandular [...] Hepatitis C antibody Blood (05/21/2023 10:28 AM INCOME TAX PREPARER) Hep C Ab Nonreactive Nonreactive [facility]ONATHAN [facility] [...] last revised on 2019. Testing performed by: [facility], [address] [place] [address]., [id number] Blood 05/21/2023 10:2 8 AM INCOME TAX PREPARER 05/21/2023 12:45 PM INCOME TAX PREPARER Anita Kelley NP LAB MICROBIOLOGY - GENERAL ORDERABLES Edited Result - Final JONATHAN [facility] [id number] [facility]. Department [place] [address] * PAP SMEAR WITH HPV (12/06/2022) 12/06/2022 Historical Provider HEALTH MAINTENANCE Final Result from Last 3 Months or Most Recently Relevant to Health Maintenance Insurance BS [facility] H[facility]/PPO Address: [facility] [id number] [place] [address] [place] [address] [facility]O Address: [place] [id number] [facility] H[facility]/PPO Address: [address] [address] [place] [address] [facility] Advance Directives For more information, please contact: [phone] * Full Code (Latest Code Status on File) Date Activated Date Inactivated Comments 01/18/2024 7:28 AM 01/18/2024 1:10 PM * Full Code Date Activated Date Inactivated Comments 07/16/2023 5:34 PM 07/25/2023 3:36 PM * Full Code Date Activated Date Inactivated Comments 07/09/2023 2:01 AM 07/11/2023 11:05 PM Care Teams Instructional Design Specialist Relationship Specialty Start Date End Date Terese Garcia MD PCP - General Internal Medicine 04/03/19 Kt Carmona MD Consulting Physician Colon and Rectal Surgery 07/20/23 West Saenz MD [address] [facility] [place] [facility] [place] [address] Consulting Physician Gastroenterology 07/20/23
--- OUTSIDE RECORDS SUMMARY | 2024-07-28 19:11 | XMS_ITS | Clinical Summary ---
Author Organization [facility] at the Medical Office Building Address [address] [place] [phone] Care Team Providers Care Sap Hana Developer Name Role Phone Terese Garcia MD Primary Care Provider Kt Carmona MD Unavailable West Saenz MD Unavailable Allergies Active Allergy Reactions Criticality Noted Date [...] weeks 5 mg/kg dose. Site of Care: [facility] Home Care ([facility] order in Epic under 'Procedures' tab). Active acetaminophen (TYLENOL) 325 mg tabletIndications :infusion reaction prophylaxis Take 2 tablets (650 mg total) by mouth radiographer cardiac catheterization Please provide 650mg of acetaminophen by mouth 30 minutes prior to Inflectra infusion. Active diphenhydrAMINE 25 mg capsuleIndication s:PREMED Take 1 tablet/capsule (25 mg total) by mouth radiographer cardiac catheterization Please provide 25mg of diphenhydramine by mouth [...] 08/01/2023 Assessment & Plan (05/28/2024 10:19 AM AVIATION ORDNANCE OFFICER): All immunosuppressants increase the risk of infection [...] and in addition should follow with a box gluer for skin cancer screening. There is a [...] and in addition should follow with a box gluer for skin cancer screening. There is a small risk of heart failure so any new HF symptoms would prompt an evaluation and likely discontinuation of therapy. Assessment & Plan (08/01/2023 2:49 PM AVIATION ORDNANCE OFFICER): All immunosuppressants increase the risk of infection [...] and in addition should follow with a box gluer for skin cancer screening. There is a small risk of heart failure so any new HF symptoms would prompt an evaluation and likely discontinuation of therapy. 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 Ocnt Ca and vit D CRC screening: annual d/t PSC Assessment & Plan (11/28/2023 10:18 AM CDT): PCV today Follows with bone health for osteopenia Assessment & Plan (08/01/2023 2:54 PM AVIATION ORDNANCE OFFICER): Annual c scope d/t psc Crohn's disease of colon wit h intestinal obstruction ([facility]/HCC) 07/16/2023 Assessment & Plan (07/18/2023 1:02 PM AVIATION ORDNANCE OFFICER): D/w CRS today - will transfer to CRS service with plan for surgical treatment on Sunday - holding steroids per GI Klebsiella pneumoniae sepsis ([facility]) Assessment & Plan (07/18/2023 1:02 PM AVIATION ORDNANCE OFFICER): Likely related to gut translocation in the setting of severe crohns inflammation and steroids - day 2 of abx; would treat for 7 days total based upon susceptibility data Fever 07/10/2023 Assessment & Plan (07/11/2023 11:18 AM AVIATION ORDNANCE OFFICER): -Febrile to 102F this admit -Infectious workup: [...] 07/09/2023 Assessment & Plan (05/28/2024 10:20 AM AVIATION ORDNANCE OFFICER): Needs annual c scope Assessment & Plan (05/19/2024 3:02 PM AVIATION ORDNANCE OFFICER): Ms. Martinez presents for follow up for [...] risk. Assessment & Plan (08/01/2023 2:50 PM AVIATION ORDNANCE OFFICER): Follows with liver. Needs annual c scope for dysplasia screening, though has not had colonic involvement. Assessment & Plan (07/10/2023 4:06 PM AVIATION ORDNANCE OFFICER): Patient has been getting worked up for elevated liver enzymes outpatient. 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 -continue to follow up outpatient with GI with recommendations for annual colonoscopy -follow-up with CRS and GI Hypertension 07/09/2023 Assessment & Plan (07/10/2023 4:07 PM AVIATION ORDNANCE OFFICER): On hydrochlorothiazide 25 mg daily Holding antihypertensive meds-BP stable without HCTZ for now Crohn's colitis, unspecified complication 2023 Assessment & Plan (07/11/2023 11:17 AM AVIATION ORDNANCE OFFICER): Patient was diagnosed with Crohn's in 2003. [...] elevated Assessment & Plan (05/21/2023 12:58 PM AVIATION ORDNANCE OFFICER): Mrs. Martinez presents for evaluation of elevated [...] remission Assessment & Plan (05/28/2024 9:13 PM AVIATION ORDNANCE OFFICER): Colonoscopy showed mucosal remission on infliximab. Continue [...] mos. Assessment & Plan (08/01/2023 2:49 PM AVIATION ORDNANCE OFFICER): Severe stricturing ileal Crohn's with multiple admissions [...] PSC Assessment & Plan (05/21/2023 1:40 PM AVIATION ORDNANCE OFFICER): Patient follows with Dr. Merchant (dx 2003). Her current regimen includes Infliximab infusion every 8 weeks, Sulfasalazine 1000 mg daily. Last colonoscopy was in 2020 which revealed tight TI stricture, not able to be traversed. She is scheduled to see MEDIA STRATEGIST provider this month with transition of care to Dr. Messina. 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 Assessment & Plan (07/10/2023 4:06 PM AVIATION ORDNANCE OFFICER): Was diagnosed 22 years ago and started with seizures Is following up with Neurosurgery at [facility] Continue carbamazepine (liquid substituted for pills), pt tolerating well. Encounters Date Type Department Care Team Description 07/28/2024 1:35 PM AVIATION ORDNANCE OFFICER - 07/28/2024 2:40 PM AVIATION ORDNANCE OFFICER Emergency [facility] Emergency Department [address] [place] [address] Discharge Disposition: Left without being seen 07/28/2024 Nurse Triage [facility] Primary Care [address] [facility] [address] [place] [address] Terese Garcia MD 07/26/2024 11:00 AM AVIATION ORDNANCE OFFICER Office Visit [facility] Medical [facility] at [address] [phone] Lj Bruce NP Acute lower respiratory infection (Primary Dx); Acute cough 07/18/2024 1:30 PM AVIATION ORDNANCE OFFICER Office Visit [facility] Primary Care [address] [facility] [address] [place] [phone] Lillie Mata NP Acute cough (Primary Dx); Influenza A; Class 1 obesity due to excess calories with serious comorbidity and body mass index (BMI) of 31.0 to 31.9 in adult; Primary hypertension; Crohn's disease of small intestine without complication (CMS/HCC) (HCC); Nausea 07/15/2024 9:00 AM AVIATION ORDNANCE OFFICER Home Care Visit [place] [address] [address] [place] [address] Rubi Chaudhry RN SN INFUSION TREATMENT ROOM 06/17/2024 11:50 AM AVIATION ORDNANCE OFFICER - 06/17/2024 11:59 PM AVIATION ORDNANCE OFFICER Hospital Encounter [facility] [address] [place] [address] Lung nodule Discharge Disposition: Discharge to home or self care 06/03/2024 Telephone [facility] Gastroenterology [address] [place] [address] [address]th [place] [address] [place] [address] Lillie Padilla LPN 06/02/2024 1:15 PM AVIATION ORDNANCE OFFICER - 06/02/2024 11:59 PM AVIATION ORDNANCE OFFICER Hospital Encounter [facility] [address] [place] [address] Elevated serum alkaline phosphatase level; PSC (primary sclerosing cholangitis) Discharge Disposition: Discharge to home or self care 06/02/2024 Orders Only [facility] [address] [place] [address] Anita Kelley NP PSC (primary sclerosing cholangitis) (Primary Dx) 05/28/2024 10:00 AM AVIATION ORDNANCE OFFICER Office Visit [facility] Gastroenterology [address] [place] [address] Medical Office Building [address] [place] [phone] West Saenz MD High risk medications (not anticoagulants) long-term use (Primary Dx); PSC (primary sclerosing cholangitis); Crohn's disease of colon with intestinal obstruction (CMS/HCC) (HCC); Crohn's disease of small intestine with intestinal obstruction (CMS/HCC) (HCC) 05/22/2024 Telephone [facility] G[facility]enterology [facility] [address]th [place] [address] [place] [address] Lillie Padilla LPN 05/22/2024 Orders Only [address] [address] Anita Kelley NP PSC (primary sclerosing cholangitis) (Primary Dx) 05/19/2024 3:15 PM AVIATION ORDNANCE OFFICER Lab [address] [id number] PSC (primary sclerosing cholangitis) 05/19/2024 3:00 PM AVIATION ORDNANCE OFFICER Procedure visit [facility] Gastroenterology [address] [place] [address] Medical Office Building [address], [address] [place] [phone] PSC (primary sclerosing cholangitis) 05/19/2024 2:40 PM AVIATION ORDNANCE OFFICER Office Visit [facility] Gastroenterology [address] [place] [address] Medical Office Building [address], [address] [place] [phone] Anita Kelley NP PSC (primary sclerosing cholangitis) (Primary Dx) 05/16/2024 9:15 AM AVIATION ORDNANCE OFFICER - 05/16/2024 11:59 PM AVIATION ORDNANCE OFFICER Hospital Encounter [facility] [address] [place] [address] Discharge Disposition: Discharge to home or self care 05/16/2024 9:00 AM AVIATION ORDNANCE OFFICER Home Care Visit Critical access hospital - [place] [address] [address] [place] [address] Nowacki, Jett J., RN SN INFUSION TREATMENT ROOM 05/14/2024 2:30 PM AVIATION ORDNANCE OFFICER Office Visit [facility] Medical Group Convenient Care at [address] [phone] Lj Bruce NP Common cold (Primary Dx) 04/30/2024 Telephone [facility] Gastroenterology [address] 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 No 07/17/2023 Personal Safety Answer Date Recorded Have you ever been in or are you currently in a harmful physical or emotional relationship or is someone making you feel afraid or unsafe? Denies 01/18/2024 Comments No Sex and Gender Information Value Date Recorded Sex Assigned at Not on file Legal Sex Female 4:53 PM AVIATION ORDNANCE OFFICER Gender Identity Female 12/08/2020 2:25 PM CDT Sexual Orientation Straight 12/08/2020 2: 25 PM CDT Obstetrics History Para Term AB IAB SAB Ectopic Multiple Livin g Live Births 21 Date Outcome GA Total Labor Labor/2nd/3rd Weight Sex Type Anes PTL Lacey A1 A5 Name Clin Last Filed Vital Signs Vital Sign Reading Time Taken Comments Blood Pressure 150/88 07/26/2024 11:03 AM AVIATION ORDNANCE OFFICER Pulse 104 07/26/2024 11:15 AM AVIATION ORDNANCE OFFICER Temperature 36.6 C (97.8 F) 07/26/2024 11:03 AM AVIATION ORDNANCE OFFICER Respiratory Rate 20 07/26/2024 11:03 AM AVIATION ORDNANCE OFFICER Oxygen Saturation 95% 07/26/2024 11:15 AM AVIATION ORDNANCE OFFICER Inhaled Oxygen Concentration - - Weight 84.8 kg (187 lb) 07/26/2024 11:03 AM AVIATION ORDNANCE OFFICER Height 165.1 cm (5' 5 ) 07/18/2024 1:23 PM AVIATION ORDNANCE OFFICER Body Mass Index 31.12 07/18/2024 1:23 PM AVIATION ORDNANCE OFFICER Plan of Treatment Health Maintenance Due Date [...] A/B, COVID-19 ANTIGEN Routine 07/18/2024 1:29 PM AVIATION ORDNANCE OFFICER Acute cough CT CHEST WO CONTRAST Schedule Routine, Read Routine (OP Routine) 06/17/2024 12:00 PM AVIATION ORDNANCE OFFICER Lung nodule MRI ABDOMEN MRCP W WO CONTRAST Schedule Routine, Read Routine (OP Routine) 06/02/2024 3:08 PM AVIATION ORDNANCE OFFICER Elevated serum alkaline phosphatase level PSC (primary sclerosing cholangitis) EGFR Routine 05/19/2024 3:33 PM AVIATION ORDNANCE OFFICER PSC (primary sclerosing cholangitis) DIFFERENTIAL AUTO Routine 05/19/2024 3:3 3 PM AVIATION ORDNANCE OFFICER PSC (primary sclerosing cholangitis) IGG Routine 05/19/2024 3:33 PM AVIATION ORDNANCE OFFICER PSC (primary sclerosing cholangitis) GAMMA GT Routine 05/19/2024 3:33 PM AVIATION ORDNANCE OFFICER PSC (primary sclerosing cholangitis) COMPREHENSIVE METABOLIC PANEL Routine 05/19/2024 3:33 PM AVIATION ORDNANCE OFFICER PSC (primary sclerosing cholangitis) CBC WITH AUTO DIFFERENTIAL Routine 05/19/2024 3:33 PM AVIATION ORDNANCE OFFICER PSC (primary sclerosing cholangitis) CANCER ANTIGEN 19-9 Routine 05/19/2024 3 :33 PM AVIATION ORDNANCE OFFICER PSC (primary sclerosing cholangitis) [id number], TUMOR MARKER Routine 05/19/2024 3:33 PM AVIATION ORDNANCE OFFICER PSC (primary sclerosing cholangitis) VITAMIN D 25 HYDROXY Routine 05/19/2024 3:33 PM AVIATION ORDNANCE OFFICER PSC (primary sclerosing cholangitis) VITAMIN A Routine 05/19/2024 3:33 PM AVIATION ORDNANCE OFFICER PSC (primary sclerosing cholangitis) VITAMIN E Routine 05/19/2024 3:33 PM AVIATION ORDNANCE OFFICER PSC (primary sclerosing cholangitis) LIVER ELASTOGRAPHY W/O IMAGING W/I&R Routine 05/19/2024 3:29 PM AVIATION ORDNANCE OFFICER PSC (primary sclerosing cholangitis) EGFR Routine 05/16/2024 9:15 AM AVIATION ORDNANCE OFFICER DIFFERENTIAL AUTO Routine 05/16/2024 9:1 5 AM AVIATION ORDNANCE OFFICER CRP (ACUTE PHASE) Routine 05/16/2024 9:1 5 AM AVIATION ORDNANCE OFFICER CBC WITH AUTO DIFFERENTIAL Routine 05/16/2024 9:15 AM AVIATION ORDNANCE OFFICER GLUCOSE, RANDOM (OUTREACH) Routine 05/16/2024 9:15 AM AVIATION ORDNANCE OFFICER COMPREHENSIVE METABOLIC PANEL WITHOUT GLUCOSE (OUTREACH) Routine 05/16/2024 9:15 AM AVIATION ORDNANCE OFFICER POC INFLUENZA A/B, COVID-19 ANTIGEN Routine 05/14/2024 3:04 PM AVIATION ORDNANCE OFFICER Common cold POCT RAPID STREP Routine 05/14/2024 2:53 PM AVIATION ORDNANCE OFFICER Common cold COLONOSCOPY 01/18/2024 7:48 AM CDT DIAGNOSTIC MAMMOGRAM BILATERAL W CHRISTIAN Schedule Routine, Read Routine (OP Routine) 01/09/2024 2:53 PM CDT History of abnormal mammogram Mass of left breast, unspecified quadrant HEPATITIS C ANTIBODY Routine 05/21/2023 10:28 AM AVIATION ORDNANCE OFFICER Elevated serum alkaline phosphatase level HM PAP SMEAR WITH HPV Routine 12/06/2022 from Last 3 Months or Most Recently Relevant to Health Maintenance Results * (ABNORMAL) POC Influenza A/B, COVID-19 antigen (07/18/2024 1:29 PM AVIATION ORDNANCE OFFICER) Influenza A Ag, POC Positive(A) Negative Influenza B Ag, POC Negative Negative COVID-19 Ag POC Presumptive Negative Presumptive Negative, Invalid Nasal 07/18/2024 1:29 PM AVIATION ORDNANCE OFFICER Lillie Mata NP POINT OF CARE TEST ORDERABLES Final Result * CT Chest WO Contrast (06/17/2024 12:00 PM AVIATION ORDNANCE OFFICER) Anatomical Region Laterality Modality Body N/A Computed Tomogra phy 06/22/2024 7:35 PM AVIATION ORDNANCE OFFICER Narrative 06/22/2024 7:39 PM AVIATION ORDNANCE OFFICER EXAM DESCRIPTION: CT CHEST WO CONTRAST REASON [...] Donna Poe M.D. FT: FT Report ID: [id number] Reading Location: [place] [address] Procedure Note Donna Camacho MD - 06/22/2024 [...] Donna Poe M.D. FT: FT Report ID: [id number] Reading Location: [id number] us Lillie Mata NP IMG CT PROCEDURES Final Resul t * MRI Abdomen MRCP W WO Contrast (06/02/2024 3:08 PM AVIATION ORDNANCE OFFICER) Anatomical Region Laterality Modality Body N/A Magnetic Resonan ce 06/02/2024 3:45 PM AVIATION ORDNANCE OFFICER Impressions 06/02/2024 4:27 PM AVIATION ORDNANCE OFFICER Unchanged mild multifocal intrahepatic stricturing and dilatation compatible with primary sclerosing cholangitis. Dictated by: Arya Lorenzo MD The radiology attending physician has personally reviewed this study, and had reviewed and/or edited this written report and agrees with it. Electronically signed by: Johnathan Mcadams M.D. Narrative 06/02/2024 4:27 PM AVIATION ORDNANCE OFFICER EXAMINATION: 1. MAGNETIC RESONANCE IMAGING OF THE [...] R esult * eGFR (05/19/2024 3:33 PM AVIATION ORDNANCE OFFICER) eGFR >90 >=60 mL/min/1. 73 m2 Comment: [...] last reviewed 2021. Blood 05/19/2024 3:33 PM AVIATION ORDNANCE OFFICER 05/19/2024 3:59 PM AVIATION ORDNANCE OFFICER Anita Kelley NP LAB BLOOD ORDERABLES Final Result [facility] [address] [facility]. [place] [address] * Differential, auto (05/19/2024 3:33 PM AVIATION ORDNANCE OFFICER) Neutrophil abs 3.3 1.5 - 6.5 K/cumm Imm gran abs 0.0 0.0 - 0.1 K/cumm [facility] Lymphocyte abs 2.7 0.8 - 3.3 K/cumm [facility] Monocyte abs 0.5 0.2 - 0.8 K/cumm [facility] Eosinophil abs 0.2 0.0 - 0.5 K/cumm [facility] Basophil abs 0.0 0.0 - 0.1 K/cumm [facility] Neutrophil pct 49.4 % [facility] Comment: Interpretive Data Percent cell count [...] revised on 2017. Blood 05/19/2024 3:33 PM AVIATION ORDNANCE OFFICER 05/19/2024 3:59 PM AVIATION ORDNANCE OFFICER us Anita Kelley NP LAB BLOOD ORDERABLES Final Result [facility] [address] [facility]. [place] [address] * CBC with auto differential (05/19/2024 3:33 PM AVIATION ORDNANCE OFFICER) Pathologist [facility] [place] WBC 6.8 3.8 - 9.9 K/cumm Hgb 13.3 11.9 - 15.5 g/dL [facility] Hct 39.7 35.6 - 45.5 % [facility] Plt 230 150 - 400 K/cumm [facility] MPV 11.4 9.1 - 12.3 fL JONATHAN [facility] RBC 4.41 3.90 - 5.20 M/cumm [facility] MCV 90.0 81.3 - 96.4 fL LISAKIRSTEN [facility] MCH 30.2 27.1 - 33.3 pg [facility] MCHC 33.5 32.3 - 35.7 g/dL [facility] RDW CV 12.3 11.1 - 14.9 % [facility] RDW SD 40.4 35.7 - 48.1 fL JONATHAN [facility] NRBC abs 0.00 0.00 - 0.01 K/cumm [facility] Blood 05/19/2024 3:33 PM AVIATION ORDNANCE OFFICER 05/19/2024 3:59 PM AVIATION ORDNANCE OFFICER Anita Strong Allie EL LAB BLOOD ORDERABLES Final Result Performing Organization Address [facility] Co de Phone Number [facility] [address] [address] [facility] [email or web address] [address] * Cancer antigen 19-9 (05/19/2024 3:33 PM AVIATION ORDNANCE OFFICER) Pathologist [facility] [place] 19-9 ag 4.5 0.0 - 35.0 units/mL Comment: Interpretive Data The Valerio [place] 19-9 assay procedure was used. Results from different manufacturers or methods may not be comparable. Serial testing should be performed using the same method. Testing performed by: [facility], [address] [place] [address]., [id number] Blood 05/19/2024 3:33 PM AVIATION ORDNANCE OFFICER 05/19/2024 6:22 PM AVIATION ORDNANCE OFFICER Anita Strong Allie EL LAB BLOOD ORDERABLES Final Result Performing Organization Address City/[facility] Co de Phone Number [facility] [address] [address] [facility] [email or web address] [address] * Vitamin A (05/19/2024 3:33 PM AVIATION ORDNANCE OFFICER) Pathologist [facility] Vitamin A 69.2 32.5 - 78.0 mcg/dL [facility] Comment: ADDITIONAL INFORMATION This test was developed and its performance characteristics determined by [facility] in a manner consistent with CLIA requirements. This test has not been cleared or approved by the U.S. Food and Drug Administration. Test Performed by: [facility] Laboratories - [facility] [address] [place] [address] Supervisor [place]chard: Reny Srivastava Ph.D.; CLIA# [id number] Blood 05/19/2024 3:33 PM AVIATION ORDNANCE OFFICER 05/19/2024 3:59 PM AVIATION ORDNANCE OFFICER Anita Kelley NP LAB BLOOD ORDERABLES Final Result JONATHAN [facility] [address] [address] [facility]. [place] [address] [facility] * [id number], Tumor Marker (05/19/2024 3:33 PM AVIATION ORDNANCE OFFICER) alpha Fetoprotein 2.3 <=8.3 ng/mL Comment: Interpretive [...] 2018;[id number] Hung Reyna et al. Clin Chem 2014;[id number]. Current interpretive data was last revised 2022. Testing performed by: [facility], [facility] [facility], [place]., [address] Blood 05/19/2024 3:33 PM AVIATION ORDNANCE OFFICER 05/19/2024 6:22 PM AVIATION ORDNANCE OFFICER us Anita Kelley NIKKO LAB BLOOD ORDERABLES Final Result Performing Organization Address [facility]/ZIP Co de Phone Number JONATHAN [facility] [address] [address] [facility] [place] [email or web address] [address] * (ABNORMAL) Vitamin D 25 hydroxy (05/19/2024 3:33 PM AVIATION ORDNANCE OFFICER) [facility] Vitamin D 25-OH 93(H) 30 - 80 ng/mL Blood 05/19/2024 3:33 PM AVIATION ORDNANCE OFFICER 05/19/2024 3:59 PM AVIATION ORDNANCE OFFICER Anita Kelley MEDIA STRATEGIST LAB BLOOD ORDERABLES Edite d Result - Final Performing Organization Address [facility] de Phone Number JONATHAN [facility] [address] [address] [facility] [employer] [place], [place] [id number] * Vitamin E (05/19/2024 3:33 PM AVIATION ORDNANCE OFFICER) [facility] Tocopherol (Vit E) 16.0 5.5 - 17.0 mg/L [facility] Comment: ADDITIONAL INFORMATION This test was developed and its performance characteristics determined by [facility] in a manner consistent with CLIA requirements. This test has not been cleared or approved by the U.S. Food and Drug Administration. Test Performed by: [facility] - [address] [address] Supervisor [place]: Reny Srivastava Ph.D.; CLIA# [id number] Blood 05/19/2024 3:33 PM AVIATION ORDNANCE OFFICER 05/19/2024 3:59 PM AVIATION ORDNANCE OFFICER Anita Kelley NIKKO LAB BLOOD ORDERABLES Final Result Performing Organization Address [facility] Co de Phone Number JONATHAN [facility] [address] [address] [facility] [place] [email or web address] [address] [facility] * (ABNORMAL) Gamma GT (05/19/2024 3:33 PM AVIATION ORDNANCE OFFICER) GGT 37(H) 5 - 35 Units/L Blood 05/19/2024 3:33 PM AVIATION ORDNANCE OFFICER 05/19/2024 3:59 PM AVIATION ORDNANCE OFFICER Anita Kelley MEDIA STRATEGIST LAB BLOOD ORDERABLES Edite d Result - Final Performing Organization Address [facility]/ZIP Co de Phone Number JONATHAN [facility] [address] [address] [facility] [email or web address] [place], [place] [id number] * IgG (05/19/2024 3:33 PM AVIATION ORDNANCE OFFICER) Pathologist [facility] Immunoglobulin G 1,306 700 - 1,600 mg/dL Comment:Testing performed by : [facility], [address] [place] [address]., [id number] Blood 05/19/2024 3:33 PM AVIATION ORDNANCE OFFICER 05/19/2024 6:22 PM AVIATION ORDNANCE OFFICER Anita Strong Allie EL LAB BLOOD ORDERABLES Final Result Performing Organization Address [facility] Co de Phone Number JONATHAN [facility] [address] [address] [facility] [email or web address] [place], [place] [id number] * (ABNORMAL) Comprehensive metabolic panel (05/19/2024 3:33 PM AVIATION ORDNANCE OFFICER) Pathologist [facility] [place] Sodium 139 135 - 145 mmol/L Potassium, pl 3.5 3.3 - 4.9 mmol/L [facility] Chloride 100 97 - 110 mmol/L [facility] CO2 29 22 - 32 mmol/L [facility] Anion gap 10 2 - 15 mmol/L [facility] BUN 15 6 - 25 mg/dL [facility] Creatinine 0.75 0.60 - 1.10 mg/dL [facility] Glucose 96 70 - 199 mg/dL [facility] Comment: Interpretive Data Fasting glucose >/= 126 [...] Units/L [facility] Blood 05/19/2024 3:33 PM AVIATION ORDNANCE OFFICER 05/19/2024 3:59 PM AVIATION ORDNANCE OFFICER us Anita Kelley NP LAB BLOOD ORDERABLES Edite d Result - Final JONATHAN VILLASEÑOR [id number] [facility] [place] [address] * Liver Elastography w/o Imaging W/I&R -[facility] (All Locations) (05/19/2024 3:29 PMCST) Anatomical Region Laterality Modality Other us Anita Kelley NP GI PROCEDURE ORDERABLES Fi nal Result * (ABNORMAL) Glucose, random (Outreach) (05/16/2024 9:15 AM AVIATION ORDNANCE OFFICER) Glucose 59(L) 70 - 199 mg/dL Comment: [...] last revised 2022. Blood 05/16/2024 9:15 AM AVIATION ORDNANCE OFFICER 05/16/2024 12:25 PM AVIATION ORDNANCE OFFICER West Saenz MD LAB BLOOD ORDERABLES Final Result Performing Organization Address [facility] Co de Phone Number JONATHAN [facility] [email or web address] [address] * eGFR (05/16/2024 9:15 AM AVIATION ORDNANCE OFFICER) eGFR >90 >=60 mL/min/1. 73 m2 Comment: [...] last reviewed 2021. Blood 05/16/2024 9:15 AM AVIATION ORDNANCE OFFICER 05/16/2024 12:39 PM AVIATION ORDNANCE OFFICER West Saenz MD LAB BLOOD ORDERABLES Final Result Performing Organization Address City/[facility]/ZIP Co de Phone Number [facility] [place] [address] * Differential, auto (05/16/2024 9:15 AM AVIATION ORDNANCE OFFICER) Neutrophil abs 2.4 1.5 - 6.5 K/cumm Imm gran abs 0.0 0.0 - 0.1 K/cumm [facility] Lymphocyte abs 1.7 0.8 - 3.3 K/cumm [facility] Monocyte abs 0.5 0.2 - 0.8 K/cumm [facility] Eosinophil abs 0.4 0.0 - 0.5 K/cumm [facility] Basophil abs 0.0 0.0 - 0.1 K/cumm [facility] Neutrophil pct 47.0 % [facility] Comment: Interpretive Data Percent cell count reference ranges are not reported, since discordance with absolute values may lead to misinterpretation of CBC data. Current Interpretive Data was last revised on 2017. Imm gran pct 0.2 % [facility] Comment: Interpretive Data Percent cell count reference ranges are not reported, since discordance with absolute values may lead to misinterpretation of CBC data. Current Interpretive Data was last revised on 2017. Lymphocyte pct 34.8 % [facility] Comment: Interpretive Data Percent cell count reference ranges are not reported, since discordance with absolute values may lead to misinterpretation of CBC data. Current Interpretive Data was last revised on 2017. Monocyte pct 9.0 % [facility] Comment: Interpretive Data Percent cell count reference ranges are not reported, since discordance with absolute values may lead to misinterpretation of CBC data. Current Interpretive Data was last revised on 2017. Eosinophil pct 8.2 % [facility] Comment: Interpretive Data Percent cell count reference ranges are not reported, since discordance with absolute values may lead to misinterpretation of CBC data. Current Interpretive Data was last revised on 2017. Basophil pct 0.8 % [facility] Comment: Interpretive Data Percent cell count reference ranges are not reported, since discordance with absolute values may lead to misinterpretation of CBC data. Current Interpretive Data was last revised on 2017. Blood 05/16/2024 9:15 AM AVIATION ORDNANCE OFFICER 05/16/2024 12:25 PM AVIATION ORDNANCE OFFICER West Saenz MD LAB BLOOD ORDERABLES Final Result Performing Organization Address [facility]/ZIP Co de Phone Number [facility] [place] [address] * (ABNORMAL) Comprehensive metabolic panel, without glucose (Outreach) (05/16/2024 9:15 AM AVIATION ORDNANCE OFFICER) Pathologist [facility] [place] Sodium 142 135 - 145 mmol/L Potassium, pl 3.7 3.3 - 4.9 mmol/L [facility] Chloride 103 97 - 110 mmol/L [facility] CO2 27 22 - 32 mmol/L [facility] Anion gap 12 2 - 15 mmol/L [facility] BUN 10 6 - 25 mg/dL [facility] Creatinine 0.71 0.60 - 1.10 mg/dL [facility] Calcium 9.5 8.5 - 10.3 mg/dL [facility] Protein, pl 7.4 6.5 - 8.5 g/dL [facility] Albumin 4.4 3.5 - 5.0 g/dL [facility] Bilirubin, total 0.2 0.1 - 1.2 mg/dL [facility] Alk phos 237(H) 40 - 130 Units/L [facility] AST 26 10 - 45 Units/L [facility] ALT 31 7 - 45 Units/L [facility] Blood 05/16/2024 9:15 AM AVIATION ORDNANCE OFFICER 05/16/2024 12:25 PM AVIATION ORDNANCE OFFICER West Saenz MD LAB BLOOD ORDERABLES Final Result [facility] [place] [address] * CBC with auto differential (05/16/2024 9:15 AM AVIATION ORDNANCE OFFICER) Pathologist [facility] [place] WBC 5.0 3.8 - 9.9 K/cumm Hgb 13.5 11.9 - 15.5 g/dL [facility] Hct 40.8 35.6 - 45.5 % [facility] Plt 223 150 - 400 K/cumm [facility] MPV 12.1 9.1 - 12.3 fL [facility] RBC 4.56 3.90 - 5.20 M/cumm [facility] MCV 89.5 81.3 - 96.4 fL [facility] MCH 29.6 27.1 - 33.3 pg [facility] MCHC 33.1 32.3 - 35.7 g/dL [facility] RDW CV 12.4 11.1 - 14.9 % [facility] RDW SD 41.1 35.7 - 48.1 fL [facility] NRBC abs 0.00 0.00 - 0.01 K/cumm [facility] Blood 05/16/2024 9:15 AM AVIATION ORDNANCE OFFICER 05/16/2024 12:25 PM AVIATION ORDNANCE OFFICER West Saenz MD LAB BLOOD ORDERABLES Final Result Performing Organization Address City/[facility]/ZIP Co de Phone Number [facility] [place] [address] * CRP (acute phase) (05/16/2024 9:15 AM AVIATION ORDNANCE OFFICER) [facility] CRP 7.3 <=10.0 mg/L Blood 05/16/2024 9:15 AM AVIATION ORDNANCE OFFICER 05/16/2024 12:25 PM AVIATION ORDNANCE OFFICER West Saenz MD LAB BLOOD ORDERABLES Final Result [facility] [place] [address] * POC Influenza A/B, COVID-19 antigen (05/14/2024 3:04 PM AVIATION ORDNANCE OFFICER) Pathologist [facility] [place] Influenza A Ag, POC Negative Negative [facility] Influenza B Ag, POC Negative Negative [facility] COVID-19 Ag POC Presumptive Negative Presumptive Negative, Invalid [facility] Nasopharyngeal 05/14/2024 3: 04 PM AVIATION ORDNANCE OFFICER Lj Bruce NP POINT OF CARE TEST ORDERABLES F inal Result [facility] [address] [place] [address] * POCT rapid strep A (05/14/2024 2:53 PM AVIATION ORDNANCE OFFICER) Rapid Strep A, POC Negative Negative Swab 05/14/2024 2:53 PM AVIATION ORDNANCE OFFICER us Lj Bruce NP POINT OF CARE TEST ORDERABLES F inal Result * Colonoscopy (01/18/2024 7:48 AM CDT) Anatomical Region Laterality Modality Other Narrative Procedure Note West Saenz MD - 01/18/2024 7:48 AM CDT ENDOSCOPY LAB Patient Name: Linnea Martinez Procedure Date: 01/18/2024 7:48 AM Date of : 1975 Admit Type: Outpatient Age: 48 Gender: Female Attending MD: West Saenz M.D. Room: [facility] ENDOSCOPY ROOM 01 Note Status: Finalized [...] The scope was passed under direct vision.The [id number] was introduced through the anusand advanced to [...] business hours - Please call theNurse Coordinator: [phone]. After hours, evening, nights, weekends and holidays- Please call the hospital link wire fabric machine operator at and ask for the GI fellow radiographer cardiac catheterization. Electronically signed by West Saenz MD West [...] Hepatitis C antibody Blood (05/21/2023 10:28 AM AVIATION ORDNANCE OFFICER) Hep C Ab Nonreactive Nonreactive JONATHAN VILLASEÑOR [...] last revised on 2019. Testing performed by: [facility], [address] [place] [address]., [id number] Blood 05/21/2023 10:2 8 AM AVIATION ORDNANCE OFFICER 05/21/2023 12:45 PM AVIATION ORDNANCE OFFICER Anita Kelley NP LAB MICROBIOLOGY - GENERAL ORDERABLES Edited Result - Final [facility] [address] [facility]. Department [place] [address] * HM PAP SMEAR WITH HPV (12/06/2022) 12/06/2022 us Historical Provider MD HEALTH MAINTENANCE Final Result from Last 3 Months or Most Recently Relevant to Health Maintenance Insurance [facility] H[facility]PPO Address: [address] [address] [place] [address] [facility]/PPO Address[facility] [address] [address] [facility]/PPO Address: [address] [address] [facility] Advance Directives For more information, please contact: [phone] * Full Code (Latest Code Status on File) Date Activated Date Inactivated Comments 01/18/2024 7:28 AM 01/18/2024 1:10 PM * Full Code Date Activated Date Inactivated Comments 07/16/2023 5:34 PM 07/25/2023 3:36 PM * Full Code Date Activated Date Inactivated Comments 07/09/2023 2:01 AM 07/11/2023 11:05 PM Care Teams Sap Hana Developer Relationship Specialty Start Date End Date Terese Garcia MD PCP - General Internal Medicine 04/03/19 Kt Carmona MD Consulting Physician Colon and Rectal Surgery 07/20/23 West Saenz MD [address] [facility] [facility] [address] [place] [address] Consulting Physician Gastroenterology 07/20/23
--- OUTSIDE RECORDS SUMMARY | 2024-07-28 19:11 | XMS_ITS | Encounter Summary ---
Author Organization [facility] Address [address] [place] [address] Phone Care Team Providers Care Filament Wound Parts Fabricator Name Role Phone Terese Garcia MD Primary Care Provider Kt Carmona MD Unavailable [phone] West Saenz MD Unavailable [phone] Encounter Details Date Type Department Care Team (Late st Contact Info) Description 08/29/2017 Orders Only [facility] ProviderDarrell MD [address] [place] [id number] Social History Tobacco Use Types Packs/Day Years Used Date Smoking Tobacco: Never Alcohol Use Standard Drinks/Week Comments Yes 0 (1 standard drink = 0.6 oz pur e alcohol) Comments Unknown Sex and Gender Information Value Date Recorded Sex Assigned at Not on file Legal Sex Female 4:53 PM THEATRICAL DRESSER Gender Identity Female 12/08/2020 2:25 PM CDT [...] COVID: Suspected 07/09/2023 07/09/2023 07/10/2023 1:00 AM THEATRICAL DRESSER COVID: Suspected 07/16/2023 07/16/2023 07/17/2023 3:17 AM THEATRICAL DRESSER COVID: Suspected 04/15/2024 04/15/2024 04/15/2024 2:46 PM CDT COVID: Suspected 05/14/2024 05/14/2024 05/14/2024 3:05 PM THEATRICAL DRESSER COVID: Suspected 07/18/2024 07/18/2024 07/18/2024 1:46 PM THEATRICAL DRESSER Influenza, adult 07/18/2024 07/18/2024 07/25/2024 3:07 AM THEATRICAL DRESSER documented as of this encounter Care Teams Filament Wound Parts Fabricator Relationship Specialty Start Date End Date Terese Garcia MD PCP - General Internal Medicine 04/03/19 Kt Carmona MD Consulting Physician Colon and Rectal Surgery 07/20/23 West Saenz MD [address] [facility] [address] [place] [address] Consulting Physician Gastroenterology 07/20/23 documented as of this encounter
[2024-07-28] MEDS: PROMETHAZINE/CODEINE (*CRX) 5 ML SYRUP PO (20:39)
[2024-07-28 21:19] LABS: Troponin I < 0.012 ng/mL (0.000-0.034)
[2024-07-28 22:05] VITALS: BP 135/73; PULSE 66; RESP 14; O2SAT 100
[2024-07-28] MEDS: MORPHINE SULFATE (*CRX) 2 MG/ML INJ IV PUSH (22:22)
== END 2024-07-28 22:33 | disposition home or self-care (01) ==
PROVIDERS: Physician Assistant; Emergency Provider Registered Nurse; PCP Internal Medicine
DX: J40 Bronchitis, not specified as acute or chronic (principal); J10.1 Influenza due to other identified influenza virus with other respiratory manifestations; K50.90 Crohn's disease, unspecified, without complications
CPT/HCPCS: 36415; 71046; 71275; 74177; 80053; 83690; 84484; 85025; 85610; 85730; 93005; 94640; 96361; 96374; 96375; 96376; 99284; A9270; J1100; J2270; J7030; J7512; Q9967